=== PATIENT | male | born 1935 | race Caucasian/White ===

== ENCOUNTER 2016-09-06 18:01 | Observation (INO) | payer MEDICARE, OTHER ==
[~2016-09-06] VITALS: Ht 175.3 cm; Wt 80.5 kg
[2016-09-06 19:36] LABS: MEAN CORPUSCULAR HEMOGLOBIN 28.8 pg (27.0-33.0); MEAN CORPUSCULAR HGB CONC 32.3 g/dl (32.0-36.5); PLATELET COUNT, AUTOMATED 161 k/mm3 (150-450); RED CELL DISTRIBUTION WIDTH 14.2 % (11.5-14.5); WHITE BLOOD COUNT 14.7 K/mm3 (4.0-10.0)
[2016-09-06 19:47] LABS: ALBUMIN 3.4 GM/DL (3.2-5.2); ALBUMIN/GLOBULIN RATIO 1.13 (1.00-1.93); ALKALINE PHOSPHATASE 82 U/L (45-117); ALT/SGPT 19 U/L (12-78); ANION GAP 8 MEQ/L (8-16); AST/SGOT 8 U/L (15-37); BILIRUBIN,DIRECT 0.1 MG/DL (0.0-0.2); BILIRUBIN,TOTAL 0.3 MG/DL (0.2-1.0); BLOOD UREA NITROGEN 21 MG/DL (7-18); CALCIUM LEVEL 8.6 MG/DL (8.8-10.2); CARBON DIOXIDE LEVEL 30 MEQ/L (21-32); CHLORIDE LEVEL 102 MEQ/L (98-107); CREATININE FOR GFR 0.98 MG/DL (0.70-1.30); GLOMERULAR FILTRATION RATE > 60.0 (>35); GLUCOSE, FASTING 154 MG/DL (83-110); POTASSIUM SERUM 4.4 MEQ/L (3.5-5.1); SODIUM LEVEL 140 MEQ/L (136-145); TOTAL PROTEIN 6.4 GM/DL (6.4-8.2)
[2016-09-06 20:01] LABS: BANDS 1 % (< 11); EOSINOPHILS 1 % (0-5)
[2016-09-06 20:03] LABS: POIKILOCYTOSIS 1+
[2016-09-06] MEDS ORDERED: ACETAMINOPHEN 325 MG TAB As Ordered ONE (20:54)
[2016-09-06] MEDS: MAGNESIUM OXIDE 400 MG TAB (MAG-OX) PO SCH (21:00)
--- NOTE | 2016-09-06 21:10 | REPUSA ---
CLINICAL HISTORY: CVA>4.5HRS TECHNIQUE: Multiple axial CT images were obtained through the brain without IV contrast material. COMMENTS: Compared to prior study dated 10/10/15. There is normal configuration of sella turcica. There are no intra or extra-axial collections. There is no mass effect or midline shift. There is no evidence of hematoma formation. No hydrocephalus is p resent. The ventricles are symmetrical. No abnormal calcifications are present. There is diffuse age-appropriate cerebellar and cerebral atrophy with proportionally dilated ventricl es and cortical sulci. There are bilateral periventricular and subcortical white matter hypolucencies compatible with mild c hronic microvascular disease. Otherwise, no significant focal abnormalities are seen either in the posterior fossa or supratentoria l compartment. IMPRESSION: 1. Age-appropriate cerebellar and cerebral atrophy. 2. Mild chronic microvascular disease. 3. No evidence of acute intracranial pathology. No interval change. Thank you for your kind referral of this patient.
[2016-09-06] MEDS ORDERED: cefTRIAXone SOD 1 GM VIAL (J0696) As Ordered ONE (22:00)
[2016-09-06] MEDS ORDERED: ACETAMINOPHEN TAB 650MG DOSE (2X325MG) PO PRN (23:00)
[2016-09-06] MEDS ORDERED: SYNT125T PO (23:12)
[2016-09-06] MEDS ORDERED: VITA250011 SL (23:12)
[2016-09-06] MEDS ORDERED: METF500T PO (23:12)
[2016-09-06] MEDS ORDERED: BYST5TAB2 PO (23:12)
[2016-09-06] MEDS ORDERED: PYRI100T2 PO (23:12)
[2016-09-06] MEDS ORDERED: MEMA1TAB2 PO (23:12)
[2016-09-06] MEDS ORDERED: ESOM1CAP5 PO (23:12)
[2016-09-06] MEDS ORDERED: BUME1TA PO (23:12)
[2016-09-06] MEDS ORDERED: LUTE10TA PO (23:12)
[2016-09-06] MEDS ORDERED: ROSU20TA PO (23:12)
[2016-09-06] MEDS ORDERED: ASPI81TA7 PO (23:12)
[2016-09-06] MEDS ORDERED: AMIT10TA PO (23:12)
[2016-09-06] MEDS ORDERED: RANI150T PO (23:12)
[2016-09-06] MEDS ORDERED: CO Q10CA PO (23:12)
[2016-09-06] MEDS ORDERED: MAGN400T PO (23:12)
[2016-09-06] MEDS ORDERED: PERI4TAB PO (23:12)
[2016-09-06] MEDS ORDERED: CALC1TAB21 PO (23:12)
--- NOTE | 2016-09-06 23:56 | HPEPDOC ---
General Date of Admission 09/06/2016 Primary Care Physician: Marisabel Dc Attending Physician: SOL YOUNG Chief Complaint The patient is a 81-year-old male admitted with a reason for visit of Weakness. Source: Patient Exam Limitations: Dementia History of Present Illness Mr. Larson is an 81-year-old male who apparently has been suffering from weakness for the past 2-3 days. He is a poor historian due to underlying dementia, and his family are not in the room to provide the history. Per records in speaking with the nurses, it appears that he is usually able to get up and move around the house without difficulty, and care for himself. He does have a home health aide/caregiver who apparently is her on a daily basis. His weakness is definitely not his baseline, therefore he was brought into the ED for further evaluation. His weakness is generalized, not focal, and appears to be progressive in nature, now he seems to be essentially bedridden. When speaking to him, he is awake and alert, he does believe that it is 2000 but he is aware that the current president is David and the previous president was Deanne, and he does know that he is in [facility]. According to the patient, his only complaint besides his weakness is that he has to peel the time, and he has trouble stopping the flow, he dribbles. Otherwise, he denies any fevers, chills, night sweats, headaches, chest discomfort, palpitations, shortness of breath, nausea, vomiting, abdominal discomfort, he does admit to occasional constipation, no diarrhea, no paresthesias, no paralysis, no facial droop, no focal weakness. Remainder of the review of systems is negative. Home Medications Scheduled (Calcium 600 + D 600-200 mg-Unit) 1 Tab Tab 1 TAB PO BID (Reported) Daily and @ 1900 (Esomeprazole Magnesium) 40 Mg Cap 40 MG PO DAILY (Reported) (Lutein) 10 Mg Tab 10 MG PO DAILY (Reported) @ 1200 (Rosuvastatin Calcium) 20 Mg Tab 20 MG PO QHS (Reported) Amitriptyline HCl (Amitriptyline HCl) 10 Mg Tab 10 MG PO QHS (Reported) Aspirin (Aspirin) 81 Mg Tab 81 MG PO QPM (Reported) @ 1900 Bumetanide (Bumetanide) 1 Mg Tab 1 MG PO Q2D (Reported) Coenzyme Q10 (Co Q 10) 10 Mg Cap 10 MG PO DAILY (Reported) @ 1200 Cyanocobalamin (Vitamin B-12) 2,500 Mcg Sub 2,500 MCG SL DAILY (Reported) @ 1200 Levothyroxine Sodium (Synthroid) 125 Mcg Tab 125 MCG PO QAM (Reported) Magnesium Oxide (Magnesium Oxide) 400 Mg Tab 400 MG PO BID (Reported) Memantine Hydrochloride (Memantine HCl) 10 Mg Tab 10 MG PO BID (Reported) @ 1200 and HS Metformin Hydrochloride (Metformin HCl) 500 Mg Tab 500 MG PO BID (Reported) Daily and @ 1900 Nebivolol (Bystolic) 5 Mg Tab 5 MG PO DAILY (Reported) @ 1200 Perindopril Erbumine (Perindopril Erbumine) 4 Mg Tab 4 MG PO QHS (Reported) Pyridoxine HCl (Vitamin B-6) 100 Mg Tab 100 MG PO QPM (Reported) @ 1900 Ranitidine HCl (Ranitidine HCl) 150 Mg Tab 1 TAB PO QHS (Reported) Allergies Coded Allergies: No Known Allergies (Unverified , 09/06/16) Past Medical History Medical History Diabetes mellitus type 2 Hypercholesterolemia Hypertension Hypothyroidism CHF (unknown diastolic or systolic) Aortic insufficiency Chronic anemia with a baseline hemoglobin of 12-13. Dementia Surgical History Adenoidectomy Tonsillectomy Cholecystectomy Family History Significant Family History: Unable to assess Social History * Smoker: non-smoker Alcohol: denies Drugs: denies Recent Travel/Sick Contacts: Denies: Recent travel Psychosocial History: No pertinent psych hx Social History Apparently lives at home with a caregiver named Staci. He reports that he has 2 boys who also check in on him from time to time. Review of Symptoms Other systems As described in the HPI Physical Examination General Exam: Positive: Alert, Cooperative, No Acute Distress Eye Exam: Positive: Conjunctiva & lids normal, EOMI, PERRLA, Negative: Sclera icteric ENT Exam: Positive: Atraumatic, Mucous membr. moist/pink, Pharynx Normal Neck Exam: Positive: Supple, Negative: JVD, thyromegaly Chest Exam: Positive: Clear to auscultation, Normal air movement Heart Exam: Positive: Murmurs (grade 2/6 systolic murmur), Normal S1, Normal S2 , Rate Normal, Regular Rhythm, Negative: Rubs Telemetry: Positive: No significant arrhythmia Abdomen Exam: Positive: Normal bowel sounds, Soft, Negative: Hepatospenomegaly Extremity Exam: Positive: Normal pulses, Negative: Clubbing, Cyanosis, Edema Skin Exam: Positive: Nl turgor and temperature, Negative: Breakdown, Lesion Neuro Exam: Positive: Cranial Nerves 3-12 NL, Normal Speech, Normal Tone, Sensation Intact, Strength at 5/5 X4 ext Psych Exam: Positive: Mood NL, Negative: Oriented x 3 Vital Signs Blood pressure 112/59, pulse 62, respirations 18, temperature 100.2, pulse ox 94 % on room air, weight 82 kg, height 5 feet 9 inches, BMI 27 Laboratory Data Labs 24H Laboratory Tests 2 09/06/16 19:09: Aspartate Amino Transf (AST/SGOT) 8L, Alanine Aminotransferase (ALT/SGPT) 19, Alkaline Phosphatase 82, Total Bilirubin 0.3, Direct Bilirubin 0.1, Albumin 3.4 , Albumin/Globulin Ratio 1.13, Anion Gap 8, Atypical Lymphocytes 2, Band Neutrophils 1, White Blood Count 14.7H, Red Blood Count 4.30, Hemoglobin 12.4L, Hematocrit 38.3L, Mean Corpuscular Volume 89.0, Mean Corpuscular Hemoglobin 28.8 , Mean Corpuscular Hemoglobin Concent 32.3, Red Cell Distribution Width 14.2, Platelet Count 161, Neutrophils (%) (Auto) , Lymphocytes (%) (Auto) , Monocytes (%) (Auto) , Eosinophils (%) (Auto) , Basophils (%) (Auto) , Neutrophils # (Auto ) , Lymphocytes # (Auto) , Monocytes # (Auto) , Eosinophils # (Auto) , Basophils # (Auto) , Calcium Level 8.6L, Eosinophils (Manual) 1, Glomerular Filtration Rate > 60.0, Large Unclassified Cells # , Large Unclassified Cells % , Lymphocytes (Manual) 9L, Monocytes (Manual) 5, Neutrophils 82H, Platelet Estimate NORMAL, Poikilocytosis 1+, Total Creatine Kinase 38L, Total Protein 6.4 , Troponin I < 0.02, Urine Amorphous Sediment , Urine Appearance CLOUDYH, Urine Color YELLOW, Urine pH 5.0, Urine Specific [place] 1.020, Urine Protein NEGATIVE , Urine Glucose (UA) 1+H, Urine Ketones NEGATIVE, Urine Urobilinogen 0.2, Urine Bilirubin NEGATIVE, Urine Leukocyte Esterase 3+H, Urine Bacteria (Auto) 3+H, Urine Blood 1+H, Urine Calcium Carbonate Cryst(Auto) , Urine Calcium Oxalate Cryst (Auto) , Urine Calcium Phosphate Kathryn (Auto) , Urine Cellular Casts , Urine Cystine Crystals , Urine Granular Casts (Auto) , Urine Hyaline Casts (Auto ) 0, Urine Leucine Crystals , Urine Mucus (Auto) SMALL, Urine Nitrite POSITIVE, Urine Oval Fat Bodies (Auto) , Urine RBC (Auto) 12H, Urine Renal Epithelial Cells , Urine Sperm (Auto) , Urine Squamous Epithelial Cells 1, Urine Transitional Epithelial Cells , Urine Trichomonas (Auto) , Urine Triple Phosphate Cryst (Auto) , Urine Tyrosine Crystals , Urine Uric Acid Crystals ( Auto) , Urine WBC (Auto) TNTCH, Urine Waxy Casts (Auto) , Urine Yeast-Like Cells (Auto) CBC/BMP Laboratory Tests 09/06/16 19:09 Red Blood Count 4.30, Mean Corpuscular Volume 89.0, Mean Corpuscular Hemoglobin 28.8, Mean Corpuscular Hemoglobin Concent 32.3, Red Cell Distribution Width 14.2 , Neutrophils (%) (Auto) , Lymphocytes (%) (Auto) , Monocytes (%) (Auto) , Eosinophils (%) (Auto) , Basophils (%) (Auto) , Neutrophils # (Auto) , Lymphocytes # (Auto) , Monocytes # (Auto) , Eosinophils # (Auto) , Basophils # ( Auto) Microbiology Microbiology 09/06/16 Influenza Virus Type A Antigen - Final, Complete 09/06/16 Influenza Virus Type B Antigen - Final, Complete 09/06/16 Urine Culture, Received Pending (1) UTI (urinary tract infection) Status: Acute (2) Generalized weakness Status: Acute (3) Leukocytosis Status: Acute (4) Diabetes mellitus type 2 in nonobese Status: Chronic (5) Hypercholesterolemia Status: Chronic (6) Hypertension Status: Chronic (7) Hypothyroidism Status: Chronic (8) CHF (congestive heart failure) Status: Chronic (9) Chronic anemia Status: Chronic (10) Dementia Status: Chronic Plan / VTE VTE Prophylaxis Ordered?: Yes (Lovenox) Plan Plan UA in the ED is indicative of a UTI, urine cultures are pending. Will admit the patient to [facility]. We'll start the patient on empiric antibiotic of Rocephin. He does not meet sepsis criteria. No IV fluids will be administered at this time as he is holding up good pressures, and he has a history of CHF. CXR & symptomatology is negative for pneumonia. His weakness is generalized, as well as progressive, CT of the head was negative for any acute intracranial pathology. Neurological exam is benign. It does appear for all intents and purposes that this is caused by his UTI, however if there is persistence of symptoms even after treatment, perhaps may consider normal pressure hydrocephalus. Otherwise, we'll continue with his usual regimen of home medications for his chronic conditions. GME ATTESTATION GME ATTESTATION My preceptor for this patient encounter was physically present in the building during the encounter and was fully available. As needed, all aspects of the patient interview, examination, medical decision making process, and medical care plan development were reviewed and approved by the preceptor. Preceptor is aware and concurs with the plan as stated in the body of this note and will attest to such by his/her cosignature. ATTENDING NOTE I, Sol Young, have seen and examined the above patient and agree with the assessment and plan as documented by Dr. Virgen. The patient will be placed in observation status on the service of Dr. Veronika Mcmahon. DEVEN VIRGEN DO Sep 06, 2016 23:55 SOL YOUNG Sep 07, 2016 00:13
[2016-09-07 01:15] VITALS: BP 139/65
--- NOTE | 2016-09-07 01:15 | EDDOCDS ---
Nurse's Notes [facility] Name: Elias Larson Age: 81 yrs Sex: Male : 1935 Arrival Date: 09/06/2016 Time: 18:01 Bed 7 Private MD: Diagnosis: Urinary tract infection, site not specified;Weakness Presentation: 09/06 18:07 Presenting complaint: EMS states: weakness x 3 days progressively worsening. BS 251. kc3 The last date and time the patient was known to be well was was at an unknown time on September 03, 2016. No acute neurological deficit is noted. The patients blood glucose was checked before arriving to the hospital and was found to be normal. Suicide/Homicide risk assessment- the patient denies having any suicidal and/or homicidal ideations and does not present with any other emotional, behavioral or mental health complaints. Status: Patient is not a community service representative or dependent. Transition of care: patient was not received from another setting of care. 18:07 Acuity: BG Level 3 kc3 18:07 Method Of Arrival: Ambulance kc3 18:54 Adult Sepsis Screening: The patient does not have new or worsening altered mentation. kc3 Patient's respiratory rate is less than 22. Systolic blood pressure is greater than 100. Patient has a qSOFA score of 1- Negative Sepsis Screen. Triage Assessment: 18:51 The onset of the patients symptoms was more than three hours ago. General: Appears kc3 uncomfortable, Behavior is appropriate for age, cooperative. Pain: Denies pain. The patient is triaged at the bedside. See Assessment in Nurses Notes section of ED record. Neurological: Level of Consciousness is awake, obeys commands, Oriented to person, place, Supervisory It Specialist are weak bilaterally Weakness Speech is normal, Reports weakness. Cardiovascular: Rhythm is atrial fibrillation Other controlled. Respiratory: Airway is patent Respiratory effort is even, unlabored. Derm: Skin is pink, warm & dry. Historical: - Allergies: no known allergies; - Home Meds: 1. levothyroxine 125 mcg oral tab once daily 2. Calcium + Vitamin D 600 mg calcium- 200 unit Oral tab twice a day 3. metformin 500 mg Oral tr24 1 tab twice a day 4. esomeprazole magnesium 40 mg Oral cpDR 1 cap once daily 5. magnesium oxide 400 mg Oral tab twice a day 6. Bystolic 5 mg oral tab 1 tab once daily 7. memantine 10 mg oral tab 1 tab 2 times per day 8. aspirin 81 mg Oral tab 1 tab once daily 9. vitamin b12 daily 10. amitriptyline 10 mg Oral tab daily 11. ranitidine HCl 150 mg Oral cap 1 cap once daily 12. bumetanide 1 mg Oral tab every other day 13. rosuvastatin 20 mg oral tab 1 tab once daily 14. perindopril erbumine 4 mg oral tab 1 tab once daily 15. donepezil 10 mg oral tab 1 tab once daily - PMHx: Diabetes - NIDDM: controlled; Hypercholesterolemia; Hypertension; Hypothyroidism; CHF; "bad valves"; - PSHx: abdominal surgery; Adenoidectomy; Tonsillectomy; - Social history: No barriers to communication noted, The patient speaks fluent Romanian, Speaks appropriately for age, Smoking status: Patient states was never smoker of tobacco. - Family history: Not pertinent. - : The pt / caregiver states he / she is not on anticoagulants. Home medication list is obtained from the caregiver. - Exposure Risk Screening:: None identified. Screenin:53 Screening information is obtained from the patient. Fall risk: At risk due to weakness. kc3 The following interventions are performed due to a positive Fall Risk Screen: Fall Risk is added to Special Handling on the patient Summary Screen. A Fall Risk Bracelet was applied to the patient. Side Rails are placed in the up position. A Call [place] is given with instruction to call for help when getting out of bed. Fall Alert bracelet is placed on the patient. Assistance ADL's: requires no assistance with activities of daily living. Abuse/DV Screen: The patient / caregiver reports he/she is: not in a situation that causes fear, pain or injury. Nutritional screening: No deficits noted. Advance Directives: Currently, there is a health care proxy, Brandon Larson, mishel. home support is adequate. Assessment: 18:53 General: See triage assessment for initial assessment. . kc3 19:12 General: Verbal report given by Darcie Valladares RN. Assumed care of patient at this time.. kas2 19:39 General: Appears ill, Behavior is appropriate for age, cooperative. Pain: Denies pain. kas2 Neurological:. 19:40 Neurological: Level of Consciousness is awake, alert, Oriented to person, place, time. kas2 Cardiovascular: Capillary refill < 3 seconds Heart tones S1 S2 present Rhythm is sinus rhythm No ectopy. Respiratory: No deficits noted. Airway is patent Respiratory effort is even, unlabored, Respiratory pattern is regular, symmetrical, Breath sounds are clear. GI: Abdomen is non- distended Bowel sounds present X 4 quads. Abd is tender to palpation in right lower quadrant and left lower quadrant. GI: Derm: Skin is intact, Skin is dry, Skin is pink, warm & dry. Skin temperature is warm. 20:39 General: Patient resting in bed with family at bedside. No apparent distress noted. kas2 Appears comfortable. Denies pain or discomfort at this time. Airway patent and respiratory effort even and unlabored. Call [place] within reach. Will continue to monitor.. 21:24 General: Appears in no apparent distress, comfortable, Behavior is appropriate for age, kas2 cooperative. Pain: Denies pain. Neurological: Level of Consciousness is awake, alert, Oriented to person, place, time. Cardiovascular: Rhythm is sinus rhythm No ectopy. Respiratory: Airway is patent Respiratory effort is even, unlabored, Respiratory pattern is regular, symmetrical. Derm: Skin is intact, Skin is dry, Skin is pink, warm & dry. Skin temperature is warm. 21:41 General: Patient slow to respond with answers to questions and is confused at times kas2 with some answers. Patient did not know his address and what year it was. RN was unable to ambulate patient as he could not even sit up in bed. Dr. Armijo aware.. 22:32 General: Hospitalist in assessing patient at this time.. kas2 23:30 General: Appears in no apparent distress, to be sleeping. Behavior is appropriate for kas2 age, cooperative. Pain: Denies pain. Neurological: Level of Consciousness is. Cardiovascular: Capillary refill < 3 seconds Rhythm is sinus rhythm No ectopy. Respiratory: Airway is patent Respiratory effort is even, unlabored, Respiratory pattern is regular, symmetrical. Derm: Skin is intact, Skin is dry, Skin is pink, warm & dry. Skin temperature is warm. 09/07 00:19 General: Appears in no apparent distress, to be sleeping. Behavior is appropriate for kas2 age, cooperative. Pain: Denies pain. Cardiovascular: Rhythm is sinus rhythm No ectopy. Respiratory: Airway is patent Respiratory effort is even, unlabored, Respiratory pattern is regular, symmetrical. Derm: Skin is intact, Skin is dry, Skin is pink, warm & dry. Skin temperature is warm. 00:39 General: Patient incontinent of urine. Bed changed and patient repositioned. Denies kas2 pain or discomfort. Call [place] within reach.. Vital Signs: 09/06 18:15 BP 113 / 59 (auto/); kas2 18:15 Pulse 66 MON; Pulse Ox 96% ; kas2 18:17 BP 113 / 59; Pulse 65; Resp 18; Temp 99.9(O); Pulse Ox 96% on R/A; Weight 81.65 kg (R); nb2 Height 5 ft. 9 in. (175.26 cm) (R); Pain 0/10; 18:30 BP 128 / 68 (auto/); kas2 18:30 Pulse 64 MON; Pulse Ox 95% ; kas2 19:15 BP 124 / 61 (auto/); kas2 19:15 Pulse 62 MON; Pulse Ox 92% ; kas2 19:30 BP 153 / 70 (auto/); kas2 19:30 Pulse 64 MON; Pulse Ox 94% ; kas2 19:45 BP 109 / 66 (auto/); kas2 19:45 Pulse 62 MON; Pulse Ox 93% ; kas2 20:00 BP 144 / 70 (auto/); kas2 20:00 Pulse 64 MON; kas2 20:15 BP 142 / 67 (auto/); kas2 20:15 Pulse 64 MON; Pulse Ox 94% ; kas2 20:30 BP 116 / 60 (auto/); kas2 20:30 Pulse 62 MON; Pulse Ox 92% ; kas2 20:45 BP 116 / 65 (auto/); kas2 20:45 Pulse 62 MON; Pulse Ox 92% ; kas2 20:46 Temp 100.2(O); kas2 21:00 BP 111 / 56 (auto/); kas2 21:00 Pulse 62 MON; Pulse Ox 92% ; kas2 21:15 BP 112 / 59 (auto/); kas2 21:15 Pulse 62 MON; Pulse Ox 91% ; kas2 21:30 BP 103 / 52 (auto/); kas2 21:30 Pulse 60 MON; Pulse Ox 91% ; kas2 21:45 BP 102 / 56 (auto/); kas2 21:45 Pulse 60 MON; Pulse Ox 92% ; kas2 22:00 BP 107 / 57 (auto/); kas2 22:00 Pulse 60 MON; Pulse Ox 93% ; kas2 22:15 Resp 18; Temp 98.9(TE); kas2 22:15 BP 106 / 59 (auto/); kas2 22:15 Pulse 56 MON; Pulse Ox 94% ; kas2 22:30 BP 103 / 51 (auto/); kas2 22:30 Pulse 56 MON; Pulse Ox 95% ; kas2 22:45 BP 108 / 56 (auto/); kas2 22:45 Pulse 56 MON; Pulse Ox 94% ; kas2 23:00 BP 92 / 54 (auto/); kas2 23:00 Pulse 56 MON; Pulse Ox 94% ; kas2 23:15 BP 94 / 55 (auto/); kas2 23:15 Pulse 56 MON; Pulse Ox 94% ; kas2 23:30 BP 104 / 53 (auto/); kas2 23:30 Pulse 56 MON; Pulse Ox 94% ; kas2 23:45 BP 110 / 58 (auto/); kas2 23:45 Pulse 56 MON; Pulse Ox 95% ; kas2 09/07 00:00 BP 99 / 52 (auto/); kas2 00:00 Pulse 54 MON; Pulse Ox 94% ; kas2 00:15 BP 97 / 51 (auto/); kas2 00:15 Pulse 54 MON; Pulse Ox 94% ; kas2 00:21 Pulse 54 MON; Pulse Ox 94% ; kas2 00:22 BP 110 / 58 (auto/); kas2 00:27 BP 110 / 58; Pulse 54; Resp 18; Temp 98.7(TE); Pulse Ox 94% on R/A; Pain 0/10; kas2 09/06 18:17 Body Mass Index 26.58 (81.65 kg, 175.26 cm) nb2 Vitals: 09/06 18:17 Log In Time N/A - ambulance arrival. nb2 18:54 Glucose Measurement D-stick done by EMS BS 251. [facility] ED Course: 18:01 Patient visited by Kenya Roque, Route Supervisor. deg 18:01 Patient moved to Waiting deg 18:02 Liza Arellano,RN is Primary Nurse. deg 18:02 Patient moved to 7 deg 18:08 Triage Initiated kc3 18:17 Placed in gown. Bed in low position. Call light in reach. Side rails up X2. Cardiac nb2 monitor on. Pulse ox on. NIBP on. 18:18 Patient visited by Naina Rey. nb2 18:21 González Armijo MD is Attending Physician. br1 18:49 Patient visited by González Armijo MD. br1 18:54 The patient / caregiver is instructed regarding the plan of care and ED course. kc3 19:06 Inserted saline lock: 20 gauge in right antecubital area and blood collected. The kc3 patient tolerated the procedure well. 19:09 Patricia LarsonRN is Primary Nurse. kas2 19:11 CREATINE PHOSPHOKINASE Sent. kas2 19:11 -Influenza A&B Rapid Antigen - Nose Sent. kas2 19:11 Troponin Sent. kas2 19:11 BMP Sent. kas2 19:11 Liver Profile Sent. kas2 19:11 CBC with Diff Sent. kas2 19:12 Urine Culture Sent. kas2 19:12 Urinalysis Sent. kas2 19:12 Bladder Scan completed Results: [address] Armijo aware. kas2 19:13 Patient visited by Patricia Larson RN. kas2 19:33 [facility] Payment Agreement was scanned into [employer] and attached to record. ks16 19:41 Patient visited by Patricia Larson RN. kas2 20:13 Patient visited by Patricia Larson RN. kas2 20:39 DIFFERENTIAL NO CHARGE Sent. kas2 20:41 Patient visited by Patricia Larson RN. kas2 20:46 Patient visited by Patricia Larson RN. kas2 21:18 Patient visited by Patricia Larson RN. kas2 21:18 CT Head Without Contrast Returned. EDMS 21:25 Patient visited by Patricia Larson RN. kas2 21:38 Patient visited by González Armijo MD. br1 21:42 Patient visited by Patricia Larson RN. kas2 21:53 Sol Young is Hospitalizing Provider. br1 22:15 Patient visited by Patricia Larson RN. kas2 22:33 Patient visited by Patricia Larson RN. kas2 23:32 Patient visited by Patricia Larson RN. kas2 09/07 00:24 Patient visited by Patricia Larson RN. kas2 00:27 No procedures done that require assistance. kas2 00:39 Patient visited by Patricia Larson RN. kas2 00:51 Patient visited by Patricia Larson RN. kas2 Administered Medications: 09/06 20:39 Drug: NS 0.9% 1000 ml [sodium chloride 0.9 % intravenous solution] Route: IV; Rate: 150 kas2 mL/hr; Site: right antecubital; 20:57 Drug: Acetaminophen 650 mg [acetaminophen 325 mg tablet (2 tabs)] Route: PO; kas2 22:14 Drug: cefTRIAXone 1 grams [ceftriaxone 1 gram solution for injection] Route: IVPB; kas2 Infused Over: 30 mins; Site: right antecubital; Order Results: Lab Order: CBC with Diff; SPEC'M 09/06/16 19:09 Test: WHITE BLOOD COUNT; Value: 14.7; Range: 4.0-10.0; Abnormal: Above high normal; Units: K/mm3; Status: F Test: RED BLOOD COUNT; Value: 4.30; Range: 4.30-6.10; Units: M/mm3; Status: F Test: HEMOGLOBIN; Value: 12.4; Range: 14.0-18.0; Abnormal: Below low normal; Units: g/dl; Status: F Test: HEMATOCRIT; Value: 38.3; Range: 42.0-52.0; Abnormal: Below low normal; Units: %; Status: F Test: MEAN CORPUSCULAR VOLUME; Value: 89.0; Range: 80.0-96.0; Units: fl; Status: F Test: MEAN CORPUSCULAR HEMOGLOBIN; Value: 28.8; Range: 27.0-33.0; Units: pg; Status: F Test: MEAN CORPUSCULAR HGB CONC; Value: 32.3; Range: 32.0-36.5; Units: g/dl; Status: F Test: RED CELL DISTRIBUTION WIDTH; Value: 14.2; Range: 11.5-14.5; Units: %; Status: F Test: PLATELET COUNT, AUTOMATED; Value: 161; Range: 150-450; Units: k/mm3; Status: F Test: PLATELET ESTIMATE; Range: NORMAL; Status: I Test: NEUTROPHILS; Value: 82; Range: 35-75; Abnormal: Above high normal; Units: %; Status: F Test: BANDS; Value: 1; Range: < 11; Units: %; Status: F Test: LYMPHOCYTES; Value: 9; Range: 16-52; Abnormal: Below low normal; Units: %; Status: F Test: MONOCYTES; Value: 5; Range: 0-8; Units: %; Status: F Test: EOSINOPHILS; Value: 1; Range: 0-5; Units: %; Status: F Test: ATYPICAL LYMPH; Value: 2; Range: 0-5; Units: %; Status: F Test: POIKILOCYTOSIS; Value: 1+; Status: F Lab Order: BMP; SPEC'M 09/06/16 19:09 Test: GLUCOSE, FASTING; Value: 154; Range: 83-110; Abnormal: Above high normal; Units: MG/DL; Status: F Test: BLOOD UREA NITROGEN; Value: 21; Range: 7-18; Abnormal: Above high normal; Units: MG/DL; Status: F Test: CREATININE FOR GFR; Value: 0.98; Range: 0.70-1.30; Units: MG/DL; Status: F Test: GLOMERULAR FILTRATION RATE; Value: > 60.0; Range: >35; Status: F Test: SODIUM LEVEL; Value: 140; Range: 136-145; Units: MEQ/L; Status: F Test: POTASSIUM SERUM; Value: 4.4; Range: 3.5-5.1; Units: MEQ/L; Status: F Test: CHLORIDE LEVEL; Value: 102; Range: 98-107; Units: MEQ/L; Status: F Test: CARBON DIOXIDE LEVEL; Value: 30; Range: 21-32; Units: MEQ/L; Status: F Test: ANION GAP; Value: 8; Range: 8-16; Units: MEQ/L; Status: F Test: CALCIUM LEVEL; Value: 8.6; Range: 8.8-10.2; Abnormal: Below low normal; Units: MG/DL; Status: F Test Note: ; Units are mL/min/1.73 m2 Chronic Kidney Disease Staging per NKF: Stage I & II GFR >=60 Normal to Mildly Decreased Stage III GFR 30-59 Moderately Decreased Stage IV GFR 15-29 Severely Decreased Stage V GFR <15 Very Little GFR Left ESRD GFR <15 on UNDERGROUND REPAIRER Lab Order: Liver Profile; SPEC'M 09/06/16 19:09 Test: AST/SGOT; Value: 8; Range: 15-37; Abnormal: Below low normal; Units: U/L; Status: F Test: ALT/SGPT; Value: 19; Range: 12-78; Units: U/L; Status: F Test: ALKALINE PHOSPHATASE; Value: 82; Range: 45-117; Units: U/L; Status: F Test: BILIRUBIN,TOTAL; Value: 0.3; Range: 0.2-1.0; Units: MG/DL; Status: F Test: BILIRUBIN,DIRECT; Value: 0.1; Range: 0.0-0.2; Units: MG/DL; Status: F Test: TOTAL PROTEIN; Value: 6.4; Range: 6.4-8.2; Units: GM/DL; Status: F Test: ALBUMIN; Value: 3.4; Range: 3.2-5.2; Units: GM/DL; Status: F Test: ALBUMIN/GLOBULIN RATIO; Value: 1.13; Range: 1.00-1.93; Status: F Lab Order: Urinalysis; SPEC'M 09/06/16 19:09 Test: APPEARANCE, URINE; Value: CLOUDY; Range: CLEAR; Abnormal: Above high normal; Status: F Test: COLOR, URINE; Value: YELLOW; Range: YELLOW; Status: F Test: PH,URINE; Value: 5.0; Range: 5.0-9.0; Units: UNITS; Status: F Test: SPECIFIC GRAVITY URINE AUTO; Value: 1.020; Range: 1.002-1.035; Status: F Test: PROTEIN, URINE AUTO; Value: NEGATIVE; Range: NEGATIVE; Units: mg/dL; Status: F Test: GLUCOSE, URINE (UA) AUTO; Value: 1+; Range: NEGATIVE; Abnormal: Above high normal; Units: mg/dL; Status: F Test: KETONE, URINE AUTO; Value: NEGATIVE; Range: NEGATIVE; Units: mg/dL; Status: F Test: UROBILINOGEN, URINE AUTO; Value: 0.2; Range: 0.0-2.0; Units: mg/dL; Status: F Test: BILIRUBIN, URINE AUTO; Value: NEGATIVE; Range: NEGATIVE; Status: F Test: NITRITE, URINE AUTO; Value: POSITIVE; Range: NEGATIVE; Status: F Test: LEUKOCYTE ESTERASE, URINE AUTO; Value: 3+; Range: NEGATIVE; Abnormal: Above high normal; Status: F Test: BLOOD, URINE BLOOD; Value: 1+; Range: NEGATIVE; Abnormal: Above high normal; Status: F Test: WBC, URINE AUTO; Value: TNTC; Range: 0-3; Abnormal: Above high normal; Units: /HPF; Status: F Test: RBC, URINE AUTO; Value: 12; Range: 0-3; Abnormal: Above high normal; Units: /HPF; Status: F Test: BACTERIA, URINE AUTO; Value: 3+; Range: NEGATIVE; Abnormal: Above high normal; Status: F Test: SQUAMOUS EPITHELIAL CELL UR AU; Value: 1; Range: 0-6; Units: /HPF; Status: F Test: MUCUS, URINE; Value: SMALL; Range: NEGATIVE; Status: F Test: HYALINE CAST, URINE AUTO; Value: 0; Range: 0-1; Units: /LPF; Status: F Lab Order: Troponin; SPEC'M 09/06/16 19:09 Test: TROPONIN I; Value: < 0.02; Range: < 0.10; Units: NG/ML; Status: F Test Note: ; Troponin I Reference Interval for [employer] LOCI: 99th Percentile= 0.00-0.045 ng/ml Risk Stratification: <= 0.10 ng/ml Decreased Risk for Adverse Clinical Events. 0.10-1.50 ng/ml Increased Risk for Adverse Clinical Events. Evaluation of additional criterion and/or repeat testing in 2-6 hours is suggested to rule out myocardial damage. >= 1.50 ng/ml Indicative of Myocardial Injury. Lab Order: -Influenza A&B Rapid Antigen - Nose; SPEC'M 09/06/16 19:09 Test: INFLUENZA A RAPID SCR by ICA; Value: INFLUENZA A RESULTS NEGATIVE; Status: F Test: INFLUENZA A RAPID SCR by ICA; Value: Comments:; Status: F Test: INFLUENZA B RAPID SCR by ICA; Value: INFLUENZA B RESULTS NEGATIVE; Status: F Test Note: ; The Influenza test is a direct rapid immunoassay for the qualitative detection of Influenza viral antigen. Cell culture (Viral Culture) testing should be considered to confirm NEGATIVE results and to assist in detecting other viruses that can provide similar clinical symptoms. Please contact the lab within 24 hours ([phone] if confirmatory testing is desired. Lab Order: CREATINE PHOSPHOKINASE; SPEC'M 09/06/16 19:09 Test: CPK CREATINE PHOSPHOKINASE; Value: 38; Range: 39-308; Abnormal: Below low normal; Units: U/L; Status: F Lab Order: PLATELET ESTIMATE; SPEC'M 09/06/16 19:09 Test: PLATELET ESTIMATE; Value: NORMAL; Range: NORMAL; Status: F Radiology Order: CT Head Without Contrast Test: CT Head Without Contrast REASON FOR EXAMINATION: CVA >4.5hrs; ; CLINICAL HISTORY: CVA>4.5HRS; TECHNIQUE: Multiple axial CT images were obtained through the brain without IV contrast material.; COMMENTS: Compared to prior study dated 10/10/15.; There is normal configuration of sella turcica. There are no intra or extra-axial collections. There; is no mass effect or midline shift. There is no evidence of hematoma formation. No hydrocephalus is p; resent. The ventricles are symmetrical. No abnormal calcifications are present.; There is diffuse age-appropriate cerebellar and cerebral atrophy with proportionally dilated ventricl; es and cortical sulci.; There are bilateral periventricular and subcortical white matter hypolucencies compatible with mild c; hronic microvascular disease.; Otherwise, no significant focal abnormalities are seen either in the posterior fossa or supratentoria; l compartment.; IMPRESSION:; 1. Age-appropriate cerebellar and cerebral atrophy.; 2. Mild chronic microvascular disease.; 3. No evidence of acute intracranial pathology. No interval change.; Thank you for your kind referral of this patient.; ; ; Outcome: 21:54 Decision to Hospitalize by Provider. br1 09/07 00:47 Discharge Assessment: patient administered narcotics - no. The following High Risk [facility] Discharge criteria are identified: None. Admitted to Med/Surg accompanied by tech, via stretcher, with chart. Condition: good Condition: stable Condition: improved. CT Study completed. Property :Personal belongings accompany Pt. 01:14 Patient left the ED. [facility] Signatures: Dispatcher [employer] EDKenya Drew, Route Supervisor Unit deg González Armijo MD MD br1 Taina Wang RN RN Rosa Gonzales, Reg Reg [id number] Patricia Larson RN RN kas2 Baart, Naina nb2 MTDD
--- NOTE | 2016-09-07 01:15 | EDDOCDS ---
Physician Documentation [facility] Name: Elias Larson Age: 81 yrs Sex: Male : 1935 Arrival Date: 09/06/2016 Time: 18:01 Bed 7 Private MD: Disposition: 09/06/16 21:54 Hospitalization ordered by Sol Young for Inpatient Admission. Preliminary diagnosis are Urinary tract infection, site not specified, Weakness. - Bed requested for 4 [place]. - Status is Inpatient Admission. kas2 - Condition is Stable. - Problem is new. - Symptoms are unchanged. Historical: - Allergies: no known allergies; - Home Meds: 1. levothyroxine 125 mcg oral tab once daily 2. Calcium + Vitamin D 600 mg calcium- 200 unit Oral tab twice a day 3. metformin 500 mg Oral tr24 1 tab twice a day 4. esomeprazole magnesium 40 mg Oral cpDR 1 cap once daily 5. magnesium oxide 400 mg Oral tab twice a day 6. Bystolic 5 mg oral tab 1 tab once daily 7. memantine 10 mg oral tab 1 tab 2 times per day 8. aspirin 81 mg Oral tab 1 tab once daily 9. vitamin b12 daily 10. amitriptyline 10 mg Oral tab daily 11. ranitidine HCl 150 mg Oral cap 1 cap once daily 12. bumetanide 1 mg Oral tab every other day 13. rosuvastatin 20 mg oral tab 1 tab once daily 14. perindopril erbumine 4 mg oral tab 1 tab once daily 15. donepezil 10 mg oral tab 1 tab once daily - PMHx: Diabetes - NIDDM: controlled; Hypercholesterolemia; Hypertension; Hypothyroidism; CHF; "bad valves"; - PSHx: abdominal surgery; Adenoidectomy; Tonsillectomy; - Social history: No barriers to communication noted, The patient speaks fluent Guatemalan, Speaks appropriately for age, Smoking status: Patient states was never smoker of tobacco. - Family history: Not pertinent. - : The pt / caregiver states he / she is not on anticoagulants. Home medication list is obtained from the caregiver. - Exposure Risk Screening:: None identified. Vital Signs: 09/06 18:15 BP 113 / 59 (auto/); kas2 18:15 Pulse 66 MON; Pulse Ox 96% ; kas2 18:17 BP 113 / 59; Pulse 65; Resp 18; Temp 99.9(O); Pulse Ox 96% on R/A; Weight 81.65 kg / nb2 180.01 lbs (R); Height 5 ft. 9 in. (175.26 cm) (R); Pain 0/10; 18:30 BP 128 / 68 (auto/); kas2 18:30 Pulse 64 MON; Pulse Ox 95% ; kas2 19:15 BP 124 / 61 (auto/); kas2 19:15 Pulse 62 MON; Pulse Ox 92% ; kas2 19:30 BP 153 / 70 (auto/); kas2 19:30 Pulse 64 MON; Pulse Ox 94% ; kas2 19:45 BP 109 / 66 (auto/); kas2 19:45 Pulse 62 MON; Pulse Ox 93% ; kas2 20:00 BP 144 / 70 (auto/); kas2 20:00 Pulse 64 MON; kas2 20:15 BP 142 / 67 (auto/); kas2 20:15 Pulse 64 MON; Pulse Ox 94% ; kas2 20:30 BP 116 / 60 (auto/); kas2 20:30 Pulse 62 MON; Pulse Ox 92% ; kas2 20:45 BP 116 / 65 (auto/); kas2 20:45 Pulse 62 MON; Pulse Ox 92% ; kas2 20:46 Temp 100.2(O); kas2 21:00 BP 111 / 56 (auto/); kas2 21:00 Pulse 62 MON; Pulse Ox 92% ; kas2 21:15 BP 112 / 59 (auto/); kas2 21:15 Pulse 62 MON; Pulse Ox 91% ; kas2 21:30 BP 103 / 52 (auto/); kas2 21:30 Pulse 60 MON; Pulse Ox 91% ; kas2 21:45 BP 102 / 56 (auto/); kas2 21:45 Pulse 60 MON; Pulse Ox 92% ; kas2 22:00 BP 107 / 57 (auto/); kas2 22:00 Pulse 60 MON; Pulse Ox 93% ; kas2 22:15 Resp 18; Temp 98.9(TE); kas2 22:15 BP 106 / 59 (auto/); kas2 22:15 Pulse 56 MON; Pulse Ox 94% ; kas2 22:30 BP 103 / 51 (auto/); kas2 22:30 Pulse 56 MON; Pulse Ox 95% ; kas2 22:45 BP 108 / 56 (auto/); kas2 22:45 Pulse 56 MON; Pulse Ox 94% ; kas2 23:00 BP 92 / 54 (auto/); kas2 23:00 Pulse 56 MON; Pulse Ox 94% ; kas2 23:15 BP 94 / 55 (auto/); kas2 23:15 Pulse 56 MON; Pulse Ox 94% ; kas2 23:30 BP 104 / 53 (auto/); kas2 23:30 Pulse 56 MON; Pulse Ox 94% ; kas2 23:45 BP 110 / 58 (auto/); kas2 23:45 Pulse 56 MON; Pulse Ox 95% ; kas2 09/07 00:00 BP 99 / 52 (auto/); kas2 00:00 Pulse 54 MON; Pulse Ox 94% ; kas2 00:15 BP 97 / 51 (auto/); kas2 00:15 Pulse 54 MON; Pulse Ox 94% ; kas2 00:21 Pulse 54 MON; Pulse Ox 94% ; kas2 00:22 BP 110 / 58 (auto/); kas2 00:27 BP 110 / 58; Pulse 54; Resp 18; Temp 98.7(TE); Pulse Ox 94% on R/A; Pain 0/10; [facility]2 09/06 18:17 Body Mass Index 26.58 (81.65 kg, 175.26 cm) nb2 MDM: 09/06 18:50 IV Saline Lock ordered. br1 18:50 Bladder Scan please ordered. br1 18:52 CBC with Diff Ordered. EDMS 18:52 BMP Ordered. EDMS 18:52 Liver Profile Ordered. EDMS 18:52 Urinalysis Ordered. EDMS 18:52 Troponin Ordered. EDMS 18:52 Urine Culture Ordered. EDMS 18:52 -Influenza A&B Rapid Antigen - Nose Ordered. EDMS 18:52 Chest, 2 View (pa\\E\\lat) Ordered. EDMS 18:52 ECG WITH READING ER PHYS+CARDIAG ordered. EDMS 18:52 CT Head Without Contrast Ordered. EDMS 18:55 CREATINE PHOSPHOKINASE Ordered. EDMS 19:22 Financial registration complete. [email or web address] 19:33 [facility] Payment Agreement was scanned into [employer] and attached to record. [email or web address] 19:38 DIFFERENTIAL NO CHARGE Ordered. EDMS 19:38 PLATELET ESTIMATE Ordered. EDMS 20:15 CBC with Diff Reviewed. br1 20:15 BMP Reviewed. br1 20:15 Liver Profile Reviewed. br1 20:15 CREATINE PHOSPHOKINASE Reviewed. br1 20:15 Troponin Reviewed. br1 20:15 -Influenza A&B Rapid Antigen - Nose Reviewed. br1 20:15 PLATELET ESTIMATE Reviewed. br1 20:15 NS 0.9% 1000 ml IV at 150 mL/hr continuous ordered. br1 20:51 Acetaminophen Tablet 650 mg PO once ordered. br1 21:31 Urinalysis Reviewed. br1 21:31 CT Head Without Contrast Reviewed. br1 21:37 Ambulate Patient to Assess Patient Safety ordered. br1 21:40 cefTRIAXone 1 grams IVPB once over 30 mins; dilute in 50mL of NS or D5W ordered. br1 21:41 BED REQUEST+ADM ordered. EDMS 23:09 CONSISTENT CARBOHYDRATES ordered. EDMS 23:09 BASIC METABOLIC PROFILE Ordered. EDMS 23:09 COMPLETE BLOOD COUNT Ordered. EDMS 09/07 00:10 PHYSICAL THERAPY EVAL & TREAT ordered. EDMS 00:14 Admission / Observation Status ordered. EDMS Administered Medications: 09/06 20:39 Drug: NS 0.9% 1000 ml [sodium chloride 0.9 % intravenous solution] Route: IV; Rate: 150 kas2 mL/hr; Site: right antecubital; 20:57 Drug: Acetaminophen 650 mg [acetaminophen 325 mg tablet (2 tabs)] Route: PO; kas2 22:14 Drug: cefTRIAXone 1 grams [ceftriaxone 1 gram solution for injection] Route: IVPB; kas2 Infused Over: 30 mins; Site: right antecubital; Signatures: Dispatcher [employer] EDCO Destini Cisneros RN González Pierre MD MD br1 Taina Wang RN RN [email or web address] Rosa Turk, Reg Reg [email or web address] Patricia LarsonRN RN kas2 The chart was reviewed and I authenticate all verbal orders and agree with the evaluation and treatment provided.Corrections: (The following items were deleted from the chart) 18:55 18:52 CREATINE PHOSPHOKINASE+LAB ordered. EDCO EDMS Attachments: 19:33 [facility] Payment Agreement [email or web address] MTDD
[2016-09-07] MEDS: MEMANTINE 5MG TABLET (NAMENDA) PO SCH ×3 (01:38→21:20)
[2016-09-07] MEDS: AMITRIPTYLINE 10 MG TAB PO SCH ×2 (01:38→21:19)
[2016-09-07] MEDS: ROSUVASTATIN 10 MG TAB (CRESTOR) PO SCH ×2 (01:38→21:20)
[2016-09-07] MEDS: ASPIRIN 81 MG ENTERIC TAB PO SCH ×2 (01:38→21:19)
[2016-09-07] MEDS: FAMOTIDINE 20 MG TAB PO SCH ×2 (01:39→21:19)
[2016-09-07] MEDS: LEVOTHYROXINE 0.125 MG TAB (125 MCG) PO SCH (05:33)
[2016-09-07 05:37] LABS: MEAN CORPUSCULAR HEMOGLOBIN 29.1 pg (27.0-33.0); MEAN CORPUSCULAR HGB CONC 32.8 g/dl (32.0-36.5); MEAN CORPUSCULAR VOLUME 88.7 fl (80.0-96.0); RED CELL DISTRIBUTION WIDTH 14.2 % (11.5-14.5); WHITE BLOOD COUNT 13.1 K/mm3 (4.0-10.0)
[2016-09-07 05:43] LABS: ANION GAP 8 MEQ/L (8-16); BLOOD UREA NITROGEN 17 MG/DL (7-18); CALCIUM LEVEL 8.2 MG/DL (8.8-10.2); CARBON DIOXIDE LEVEL 27 MEQ/L (21-32); CHLORIDE LEVEL 104 MEQ/L (98-107); CREATININE FOR GFR 0.81 MG/DL (0.70-1.30); GLOMERULAR FILTRATION RATE > 60.0 (>35); GLUCOSE, FASTING 183 MG/DL (83-110); POTASSIUM SERUM 4.2 MEQ/L (3.5-5.1); SODIUM LEVEL 139 MEQ/L (136-145)
[2016-09-07 06:00] VITALS: BP 142/66
[2016-09-07] MEDS: MAGNESIUM OXIDE 400 MG TAB (MAG-OX) PO SCH ×2 (08:43→21:19)
[2016-09-07] MEDS: metFORMIN (GLUCOPHAGE) 500 MG TAB PO SCH ×2 (08:43→17:39)
[2016-09-07] MEDS: OMEPRAZOLE 20 MG CAP PO SCH (08:43)
[2016-09-07] MEDS: BUMETANIDE 1 MG TAB PO SCH (08:43)
[2016-09-07] MEDS: NEBIVOLOL 5 MG TAB (BYSTOLIC) PO SCH (08:45)
[2016-09-07] MEDS: ENOXAPARIN 40 MG/0.4 ML SYRINGE (J1650) SC SCH (08:45)
--- NOTE | 2016-09-07 10:05 | IPNPDOC ---
Assessment/Plan Date Seen The patient was seen on 09/07/16. Problems Problems: (1) Acute metabolic encephalopathy Status: Acute Problem Text: present on admission due to urinary tract infection improving. (2) UTI (urinary tract infection) Status: Acute Problem Text: will continue with ceftriaxone , cultures pending will check bladder scan post void. (3) Generalized weakness Status: Acute Problem Text: due to infection (4) Diabetes mellitus type 2 in nonobese Status: Chronic (5) Hypercholesterolemia Status: Chronic (6) Hypertension Status: Chronic (7) Hypothyroidism Status: Chronic (8) CHF (congestive heart failure) Status: Chronic Problem Text: no echo in the system unknown type (9) Chronic anemia Status: Chronic (10) Dementia Status: Chronic Plan / VTE VTE Prophylaxis Ordered?: Yes (Lovenox) Subjective Review of Systems CC/HPI The patient is a 81-year-old male admitted with a reason for visit of Urinary Tract Infection. Events since last encounter no new issues overnight , no fever or chills, nocough or phlegm , no vomiting or diarrhea. no chest pain or abdominal pain , complains of dysuria and frquency of urination. Objective Physical Examination General Exam: Positive: Alert, Cooperative, No Acute Distress Eye Exam: Positive: Conjunctiva & lids normal, EOMI, PERRLA, Negative: Sclera icteric ENT Exam: Positive: Atraumatic, Mucous membr. moist/pink, Pharynx Normal Neck Exam: Positive: Supple, Negative: JVD, thyromegaly Chest Exam: Positive: Clear to auscultation, Normal air movement Heart Exam: Positive: Murmurs (grade 2/6 systolic murmur), Normal S1, Normal S2 , Rate Normal, Regular Rhythm, Negative: Rubs Telemetry: Positive: No significant arrhythmia Abdomen Exam: Positive: Normal bowel sounds, Soft, Negative: Hepatospenomegaly Extremity Exam: Positive: Normal pulses, Negative: Clubbing, Cyanosis, Edema Skin Exam: Positive: Nl turgor and temperature, Negative: Breakdown, Lesion Neuro Exam: Positive: Cranial Nerves 3-12 NL, Normal Speech, Normal Tone, Sensation Intact, Strength at 5/5 X4 ext Psych Exam: Positive: Mood NL, Negative: Oriented x 3 Vital Signs/I&O Vital Signs Date Time Temp Pulse Resp B/P Pulse Ox O2 Delivery O2 Flow Rate FiO2 09/07/16 06:00 97.1 57 18 142/66 94 09/07/16 01:17 Room Air I&O- Last 24 Hours up to 6 AM 09/07/16 05:59 Intake Total 120 ml Output Total 200 ml Balance -80 ml Laboratory Data Labs 24H Laboratory Tests 2 09/06/16 19:09: Aspartate Amino Transf (AST/SGOT) 8L, Alanine Aminotransferase (ALT/SGPT) 19, Alkaline Phosphatase 82, Total Bilirubin 0.3, Direct Bilirubin 0.1, Albumin 3.4 , Albumin/Globulin Ratio 1.13, Anion Gap 8, Atypical Lymphocytes 2, Band Neutrophils 1, White Blood Count 14.7H, Red Blood Count 4.30, Hemoglobin 12.4L, Hematocrit 38.3L, Mean Corpuscular Volume 89.0, Mean Corpuscular Hemoglobin 28.8 , Mean Corpuscular Hemoglobin Concent 32.3, Red Cell Distribution Width 14.2, Platelet Count 161, Neutrophils (%) (Auto) , Lymphocytes (%) (Auto) , Monocytes (%) (Auto) , Eosinophils (%) (Auto) , Basophils (%) (Auto) , Neutrophils # (Auto ) , Lymphocytes # (Auto) , Monocytes # (Auto) , Eosinophils # (Auto) , Basophils # (Auto) , Calcium Level 8.6L, Eosinophils (Manual) 1, Glomerular Filtration Rate > 60.0, Large Unclassified Cells # , Large Unclassified Cells % , Lymphocytes (Manual) 9L, Monocytes (Manual) 5, Neutrophils 82H, Platelet Estimate NORMAL, Poikilocytosis 1+, Total Creatine Kinase 38L, Total Protein 6.4 , Troponin I < 0.02, Urine Amorphous Sediment , Urine Appearance CLOUDYH, Urine Color YELLOW, Urine pH 5.0, Urine Specific [place] 1.020, Urine Protein NEGATIVE , Urine Glucose (UA) 1+H, Urine Ketones NEGATIVE, Urine Urobilinogen 0.2, Urine Bilirubin NEGATIVE, Urine Leukocyte Esterase 3+H, Urine Bacteria (Auto) 3+H, Urine Blood 1+H, Urine Calcium Carbonate Cryst(Auto) , Urine Calcium Oxalate Cryst (Auto) , Urine Calcium Phosphate Kathryn (Auto) , Urine Cellular Casts , Urine Cystine Crystals , Urine Granular Casts (Auto) , Urine Hyaline Casts (Auto ) 0, Urine Leucine Crystals , Urine Mucus (Auto) SMALL, Urine Nitrite POSITIVE, Urine Oval Fat Bodies (Auto) , Urine RBC (Auto) 12H, Urine Renal Epithelial Cells , Urine Sperm (Auto) , Urine Squamous Epithelial Cells 1, Urine Transitional Epithelial Cells , Urine Trichomonas (Auto) , Urine Triple Phosphate Cryst (Auto) , Urine Tyrosine Crystals , Urine Uric Acid Crystals ( Auto) , Urine WBC (Auto) TNTCH, Urine Waxy Casts (Auto) , Urine Yeast-Like Cells (Auto) 09/07/16 05:07: Anion Gap 8, Calcium Level 8.2L, Glomerular Filtration Rate > 60.0, Blood Urea Nitrogen 17, Creatinine 0.81, Sodium Level 139, Potassium Level 4.2, Chloride Level 104, Carbon Dioxide Level 27 CBC/BMP Laboratory Tests 09/06/16 19:09 Red Blood Count 4.30, Mean Corpuscular Volume 89.0, Mean Corpuscular Hemoglobin 28.8, Mean Corpuscular Hemoglobin Concent 32.3, Red Cell Distribution Width 14.2 , Neutrophils (%) (Auto) , Lymphocytes (%) (Auto) , Monocytes (%) (Auto) , Eosinophils (%) (Auto) , Basophils (%) (Auto) , Neutrophils # (Auto) , Lymphocytes # (Auto) , Monocytes # (Auto) , Eosinophils # (Auto) , Basophils # ( Auto) 09/07/16 05:07 Red Blood Count 3.90 L, Mean Corpuscular Volume 88.7, Mean Corpuscular Hemoglobin 29.1, Mean Corpuscular Hemoglobin Concent 32.8, Red Cell Distribution Width 14.2, Calcium Level 8.2 L Microbiology Microbiology 09/06/16 Influenza Virus Type A Antigen - Final, Complete 09/06/16 Influenza Virus Type B Antigen - Final, Complete 09/06/16 Urine Culture, Received Pending THIEN BUCK MD Sep 07, 2016 07:31
[2016-09-07 14:00] VITALS: BP 136/60
--- NOTE | 2016-09-07 15:44 | ECGEPIP ---
Stationary ECG Study [facility] - ED Test Date: 2016-09-06 Pat Name: JEET MACKEY Department: Room: [place] [address] Gender: M Pole Classifier: spenser : 1935 Requested By: LAURIE Linares Order Number: [id number] Reading MD: Ghazal Chung Measurements Intervals [place] Rate: 61 P: 78 [place]: 183 QRS: -15 QRSD: 90 T: 38 QT: 400 QTc: 406 Interpretive Statements SINUS RHYTHM MINIMAL VOLTAGE CRITERIA FOR LVH, CONSIDER NORMAL VARIANT NSTTW ABNORMALITY SIMILAR 10/21/14 Electronically Signed On 09-07-2016 15:44:13 EST by Ghazal Chung
[2016-09-07] MEDS: cefTRIAXone SOD 1 GM in D5W MINI-BAG PLUS 50 ML IV SCH (21:19)
[2016-09-07] MEDS: PERINDOPRIL ERBUMINE 4 MG PO SCH (21:19)
[2016-09-07] MEDS: PYRIDOXINE 50 MG TAB PO SCH (21:20)
[2016-09-07 22:00] VITALS: BP 133/64
[2016-09-08] MEDS: LEVOTHYROXINE 0.125 MG TAB (125 MCG) PO SCH (05:39)
[2016-09-08 06:00] VITALS: BP 134/63
[2016-09-08 06:12] LABS: MEAN CORPUSCULAR HEMOGLOBIN 29.8 pg (27.0-33.0); MEAN CORPUSCULAR HGB CONC 32.8 g/dl (32.0-36.5); MEAN CORPUSCULAR VOLUME 90.7 fl (80.0-96.0); RED CELL DISTRIBUTION WIDTH 13.3 % (11.5-14.5); WHITE BLOOD COUNT 10.1 K/mm3 (4.0-10.0)
[2016-09-08 06:30] LABS: ANION GAP 7 MEQ/L (8-16); BLOOD UREA NITROGEN 14 MG/DL (7-18); CALCIUM LEVEL 8.1 MG/DL (8.8-10.2); CARBON DIOXIDE LEVEL 30 MEQ/L (21-32); CHLORIDE LEVEL 103 MEQ/L (98-107); CREATININE FOR GFR 0.84 MG/DL (0.70-1.30); GLOMERULAR FILTRATION RATE > 60.0 (>35); GLUCOSE, FASTING 198 MG/DL (83-110); SODIUM LEVEL 140 MEQ/L (136-145)
[2016-09-08] MEDS: OMEPRAZOLE 20 MG CAP PO SCH (08:49)
[2016-09-08] MEDS: MAGNESIUM OXIDE 400 MG TAB (MAG-OX) PO SCH ×2 (08:49→21:17)
[2016-09-08] MEDS: ENOXAPARIN 40 MG/0.4 ML SYRINGE (J1650) SC SCH (08:50)
[2016-09-08] MEDS: metFORMIN (GLUCOPHAGE) 500 MG TAB PO SCH ×2 (08:50→17:51)
[2016-09-08] MEDS: NEBIVOLOL 5 MG TAB (BYSTOLIC) PO SCH (08:50)
--- NOTE | 2016-09-08 11:06 | REP ---
Chest AP and lateral views: Comparison is 08/22/2016. The lung valles are clear. The cardiac size is normal The maggie, mediastinum, and bony thorax are unremarkable. Impression: Negative AP and lateral chest. There is no interval change Signed by Jomar Whitten MD 09/07/2016 08:19 A
--- NOTE | 2016-09-08 11:13 | IPNPDOC ---
Assessment/Plan Date Seen The patient was seen on 09/08/16. Problems Problems: (1) Acute metabolic encephalopathy Status: Resolved Problem Text: present on admission due to urinary tract infection now resolved. (2) UTI (urinary tract infection) Status: Acute Problem Text: will continue with ceftriaxone , cultures pending will check bladder scan post void. (3) Generalized weakness Status: Acute Problem Text: due to infection (4) Diabetes mellitus type 2 in nonobese Status: Chronic (5) Hypercholesterolemia Status: Chronic (6) Hypertension Status: Chronic (7) Hypothyroidism Status: Chronic (8) CHF (congestive heart failure) Status: Chronic Problem Text: no echo in the system unknown type (9) Chronic anemia Status: Chronic (10) Dementia Status: Chronic Response to Treatment: Stable Problem Text: mild not hampering ADLS. Plan / VTE VTE Prophylaxis Ordered?: Yes (Lovenox) Subjective Review of Systems CC/HPI The patient is a 81-year-old male admitted with a reason for visit of Urinary Tract Infection. Events since last encounter pateint alert, oriented this am , appears stronger, feeling better, good appetite , no complaints. Objective Physical Examination General Exam: Positive: Alert, Cooperative, No Acute Distress Eye Exam: Positive: Conjunctiva & lids normal, EOMI, PERRLA, Negative: Sclera icteric ENT Exam: Positive: Atraumatic, Mucous membr. moist/pink, Pharynx Normal Neck Exam: Positive: Supple, Negative: JVD, thyromegaly Chest Exam: Positive: Clear to auscultation, Normal air movement Heart Exam: Positive: Murmurs (grade 2/6 systolic murmur), Normal S1, Normal S2 , Rate Normal, Regular Rhythm, Negative: Rubs Telemetry: Positive: No significant arrhythmia Abdomen Exam: Positive: Normal bowel sounds, Soft, Negative: Hepatospenomegaly Extremity Exam: Positive: Normal pulses, Negative: Clubbing, Cyanosis, Edema Skin Exam: Positive: Nl turgor and temperature, Negative: Breakdown, Lesion Neuro Exam: Positive: Cranial Nerves 3-12 NL, Normal Speech, Normal Tone, Sensation Intact, Strength at 5/5 X4 ext Psych Exam: Positive: Mood NL, Negative: Oriented x 3 Vital Signs/I&O Vital Signs Date Time Temp Pulse Resp B/P Pulse Ox O2 Delivery O2 Flow Rate FiO2 09/08/16 08:50 55 134/63 09/08/16 06:00 97.2 17 95 Room Air I&O- Last 24 Hours up to 6 AM 09/08/16 06:00 Intake Total 770 ml Output Total 1520 ml Balance -750 ml Laboratory Data Labs 24H Laboratory Tests 2 09/07/16 16:49: Bedside Glucose (Misc Panel) 135H 09/08/16 05:30: Anion Gap 7L, Blood Urea Nitrogen 14, Creatinine 0.84, Sodium Level 140, Potassium Level 4.0, Chloride Level 103, Carbon Dioxide Level 30, Calcium Level 8.1L, Glomerular Filtration Rate > 60.0 CBC/BMP Laboratory Tests 09/08/16 05:30 Calcium Level 8.1 L, Red Blood Count 3.64 L, Mean Corpuscular Volume 90.7, Mean Corpuscular Hemoglobin 29.8, Mean Corpuscular Hemoglobin Concent 32.8, Red Cell Distribution Width 13.3 FSBS Laboratory Tests Test 09/07/16 16:49 Range/Units Bedside Glucose (Misc Panel) 135 83-110 MG/DL Microbiology Microbiology 09/06/16 Influenza Virus Type A Antigen - Final, Complete 09/06/16 Influenza Virus Type B Antigen - Final, Complete 09/06/16 Urine Culture - Final, Complete Escherichia Coli THIEN BUCK MD Sep 08, 2016 11:13
[2016-09-08] MEDS: MEMANTINE 5MG TABLET (NAMENDA) PO SCH ×2 (12:03→21:17)
[2016-09-08 14:00] VITALS: BP 124/66
[2016-09-08] MEDS ORDERED: TUSSICAPS ER 10/8MG CAPSULE PO PRN (14:30)
[2016-09-08] MEDS: ROSUVASTATIN 10 MG TAB (CRESTOR) PO SCH (21:17)
[2016-09-08] MEDS: ASPIRIN 81 MG ENTERIC TAB PO SCH (21:17)
[2016-09-08] MEDS: cefTRIAXone SOD 1 GM in D5W MINI-BAG PLUS 50 ML IV SCH (21:17)
[2016-09-08] MEDS: PYRIDOXINE 50 MG TAB PO SCH (21:17)
[2016-09-08] MEDS: AMITRIPTYLINE 10 MG TAB PO SCH (21:17)
[2016-09-08] MEDS: PERINDOPRIL ERBUMINE 4 MG PO SCH (21:18)
[2016-09-08] MEDS: FAMOTIDINE 20 MG TAB PO SCH (21:18)
[2016-09-08 22:00] VITALS: BP 131/63
--- NOTE | 2016-09-09 02:15 | EDDOCDS ---
Nurse's Notes [facility] Name: Elias Larson Age: 81 yrs Sex: Male : 1935 Arrival Date: 09/06/2016 Time: 18:01 Bed 7 Private MD: Diagnosis: Urinary tract infection, site not specified;Weakness Presentation: 09/06 18:07 Presenting complaint: EMS states: weakness x 3 days progressively worsening. BS 251. kc3 The last date and time the patient was known to be well was was at an unknown time on September 03, 2016. No acute neurological deficit is noted. The patients blood glucose was checked before arriving to the hospital and was found to be normal. Suicide/Homicide risk assessment- the patient denies having any suicidal and/or homicidal ideations and does not present with any other emotional, behavioral or mental health complaints. Status: Patient is not a front services agent or dependent. Transition of care: patient was not received from another setting of care. 18:07 Acuity: BG Level 3 kc3 18:07 Method Of Arrival: Ambulance kc3 18:54 Adult Sepsis Screening: The patient does not have new or worsening altered mentation. kc3 Patient's respiratory rate is less than 22. Systolic blood pressure is greater than 100. Patient has a qSOFA score of 1- Negative Sepsis Screen. Triage Assessment: 18:51 The onset of the patients symptoms was more than three hours ago. General: Appears kc3 uncomfortable, Behavior is appropriate for age, cooperative. Pain: Denies pain. The patient is triaged at the bedside. See Assessment in Nurses Notes section of ED record. Neurological: Level of Consciousness is awake, obeys commands, Oriented to person, place, Metals Analyst are weak bilaterally Weakness Speech is normal, Reports weakness. Cardiovascular: Rhythm is atrial fibrillation Other controlled. Respiratory: Airway is patent Respiratory effort is even, unlabored. Derm: Skin is pink, warm & dry. Historical: - Allergies: no known allergies; - Home Meds: 1. levothyroxine 125 mcg oral tab once daily 2. Calcium + Vitamin D 600 mg calcium- 200 unit Oral tab twice a day 3. metformin 500 mg Oral tr24 1 tab twice a day 4. esomeprazole magnesium 40 mg Oral cpDR 1 cap once daily 5. magnesium oxide 400 mg Oral tab twice a day 6. Bystolic 5 mg oral tab 1 tab once daily 7. memantine 10 mg oral tab 1 tab 2 times per day 8. aspirin 81 mg Oral tab 1 tab once daily 9. vitamin b12 daily 10. amitriptyline 10 mg Oral tab daily 11. ranitidine HCl 150 mg Oral cap 1 cap once daily 12. bumetanide 1 mg Oral tab every other day 13. rosuvastatin 20 mg oral tab 1 tab once daily 14. perindopril erbumine 4 mg oral tab 1 tab once daily 15. donepezil 10 mg oral tab 1 tab once daily - PMHx: Diabetes - NIDDM: controlled; Hypercholesterolemia; Hypertension; Hypothyroidism; CHF; "bad valves"; - PSHx: abdominal surgery; Adenoidectomy; Tonsillectomy; - Social history: No barriers to communication noted, The patient speaks fluent Slovak, Speaks appropriately for age, Smoking status: Patient states was never smoker of tobacco. - Family history: Not pertinent. - : The pt / caregiver states he / she is not on anticoagulants. Home medication list is obtained from the caregiver. - Exposure Risk Screening:: None identified. Screenin:53 Screening information is obtained from the patient. Fall risk: At risk due to weakness. kc3 The following interventions are performed due to a positive Fall Risk Screen: Fall Risk is added to Special Handling on the patient Summary Screen. A Fall Risk Bracelet was applied to the patient. Side Rails are placed in the up position. A Call [place] is given with instruction to call for help when getting out of bed. Fall Alert bracelet is placed on the patient. Assistance ADL's: requires no assistance with activities of daily living. Abuse/DV Screen: The patient / caregiver reports he/she is: not in a situation that causes fear, pain or injury. Nutritional screening: No deficits noted. Advance Directives: Currently, there is a health care proxy, Brandon Larson, mishel. home support is adequate. Assessment: 18:53 General: See triage assessment for initial assessment. . kc3 19:12 General: Verbal report given by Darcie Valladares RN. Assumed care of patient at this time.. kas2 19:39 General: Appears ill, Behavior is appropriate for age, cooperative. Pain: Denies pain. kas2 Neurological:. 19:40 Neurological: Level of Consciousness is awake, alert, Oriented to person, place, time. kas2 Cardiovascular: Capillary refill < 3 seconds Heart tones S1 S2 present Rhythm is sinus rhythm No ectopy. Respiratory: No deficits noted. Airway is patent Respiratory effort is even, unlabored, Respiratory pattern is regular, symmetrical, Breath sounds are clear. GI: Abdomen is non- distended Bowel sounds present X 4 quads. Abd is tender to palpation in right lower quadrant and left lower quadrant. GI: Derm: Skin is intact, Skin is dry, Skin is pink, warm & dry. Skin temperature is warm. 20:39 General: Patient resting in bed with family at bedside. No apparent distress noted. kas2 Appears comfortable. Denies pain or discomfort at this time. Airway patent and respiratory effort even and unlabored. Call [place] within reach. Will continue to monitor.. 21:24 General: Appears in no apparent distress, comfortable, Behavior is appropriate for age, kas2 cooperative. Pain: Denies pain. Neurological: Level of Consciousness is awake, alert, Oriented to person, place, time. Cardiovascular: Rhythm is sinus rhythm No ectopy. Respiratory: Airway is patent Respiratory effort is even, unlabored, Respiratory pattern is regular, symmetrical. Derm: Skin is intact, Skin is dry, Skin is pink, warm & dry. Skin temperature is warm. 21:41 General: Patient slow to respond with answers to questions and is confused at times kas2 with some answers. Patient did not know his address and what year it was. RN was unable to ambulate patient as he could not even sit up in bed. Dr. Armijo aware.. 22:32 General: Hospitalist in assessing patient at this time.. kas2 23:30 General: Appears in no apparent distress, to be sleeping. Behavior is appropriate for kas2 age, cooperative. Pain: Denies pain. Neurological: Level of Consciousness is. Cardiovascular: Capillary refill < 3 seconds Rhythm is sinus rhythm No ectopy. Respiratory: Airway is patent Respiratory effort is even, unlabored, Respiratory pattern is regular, symmetrical. Derm: Skin is intact, Skin is dry, Skin is pink, warm & dry. Skin temperature is warm. 09/07 00:19 General: Appears in no apparent distress, to be sleeping. Behavior is appropriate for kas2 age, cooperative. Pain: Denies pain. Cardiovascular: Rhythm is sinus rhythm No ectopy. Respiratory: Airway is patent Respiratory effort is even, unlabored, Respiratory pattern is regular, symmetrical. Derm: Skin is intact, Skin is dry, Skin is pink, warm & dry. Skin temperature is warm. 00:39 General: Patient incontinent of urine. Bed changed and patient repositioned. Denies kas2 pain or discomfort. Call [place] within reach.. Vital Signs: 09/06 18:15 BP 113 / 59 (auto/); kas2 18:15 Pulse 66 MON; Pulse Ox 96% ; kas2 18:17 BP 113 / 59; Pulse 65; Resp 18; Temp 99.9(O); Pulse Ox 96% on R/A; Weight 81.65 kg (R); nb2 Height 5 ft. 9 in. (175.26 cm) (R); Pain 0/10; 18:30 BP 128 / 68 (auto/); kas2 18:30 Pulse 64 MON; Pulse Ox 95% ; kas2 19:15 BP 124 / 61 (auto/); kas2 19:15 Pulse 62 MON; Pulse Ox 92% ; kas2 19:30 BP 153 / 70 (auto/); kas2 19:30 Pulse 64 MON; Pulse Ox 94% ; kas2 19:45 BP 109 / 66 (auto/); kas2 19:45 Pulse 62 MON; Pulse Ox 93% ; kas2 20:00 BP 144 / 70 (auto/); kas2 20:00 Pulse 64 MON; kas2 20:15 BP 142 / 67 (auto/); kas2 20:15 Pulse 64 MON; Pulse Ox 94% ; kas2 20:30 BP 116 / 60 (auto/); kas2 20:30 Pulse 62 MON; Pulse Ox 92% ; kas2 20:45 BP 116 / 65 (auto/); kas2 20:45 Pulse 62 MON; Pulse Ox 92% ; kas2 20:46 Temp 100.2(O); kas2 21:00 BP 111 / 56 (auto/); kas2 21:00 Pulse 62 MON; Pulse Ox 92% ; kas2 21:15 BP 112 / 59 (auto/); kas2 21:15 Pulse 62 MON; Pulse Ox 91% ; kas2 21:30 BP 103 / 52 (auto/); kas2 21:30 Pulse 60 MON; Pulse Ox 91% ; kas2 21:45 BP 102 / 56 (auto/); kas2 21:45 Pulse 60 MON; Pulse Ox 92% ; kas2 22:00 BP 107 / 57 (auto/); kas2 22:00 Pulse 60 MON; Pulse Ox 93% ; kas2 22:15 Resp 18; Temp 98.9(TE); kas2 22:15 BP 106 / 59 (auto/); kas2 22:15 Pulse 56 MON; Pulse Ox 94% ; kas2 22:30 BP 103 / 51 (auto/); kas2 22:30 Pulse 56 MON; Pulse Ox 95% ; kas2 22:45 BP 108 / 56 (auto/); kas2 22:45 Pulse 56 MON; Pulse Ox 94% ; kas2 23:00 BP 92 / 54 (auto/); kas2 23:00 Pulse 56 MON; Pulse Ox 94% ; kas2 23:15 BP 94 / 55 (auto/); kas2 23:15 Pulse 56 MON; Pulse Ox 94% ; kas2 23:30 BP 104 / 53 (auto/); kas2 23:30 Pulse 56 MON; Pulse Ox 94% ; kas2 23:45 BP 110 / 58 (auto/); kas2 23:45 Pulse 56 MON; Pulse Ox 95% ; kas2 09/07 00:00 BP 99 / 52 (auto/); kas2 00:00 Pulse 54 MON; Pulse Ox 94% ; kas2 00:15 BP 97 / 51 (auto/); kas2 00:15 Pulse 54 MON; Pulse Ox 94% ; kas2 00:21 Pulse 54 MON; Pulse Ox 94% ; kas2 00:22 BP 110 / 58 (auto/); kas2 00:27 BP 110 / 58; Pulse 54; Resp 18; Temp 98.7(TE); Pulse Ox 94% on R/A; Pain 0/10; kas2 09/06 18:17 Body Mass Index 26.58 (81.65 kg, 175.26 cm) nb2 Vitals: 09/06 18:17 Log In Time N/A - ambulance arrival. nb2 18:54 Glucose Measurement D-stick done by EMS BS 251. [facility] ED Course: 18:01 Patient visited by Kenya Roque, Litigation Paralegal. deg 18:01 Patient moved to Waiting deg 18:02 Liza Arellano,RN is Primary Nurse. deg 18:02 Patient moved to 7 deg 18:08 Triage Initiated kc3 18:17 Placed in gown. Bed in low position. Call light in reach. Side rails up X2. Cardiac nb2 monitor on. Pulse ox on. NIBP on. 18:18 Patient visited by Naina Rey. nb2 18:21 González Armijo MD is Attending Physician. br1 18:49 Patient visited by González Armijo MD. br1 18:54 The patient / caregiver is instructed regarding the plan of care and ED course. kc3 19:06 Inserted saline lock: 20 gauge in right antecubital area and blood collected. The kc3 patient tolerated the procedure well. 19:09 Patricia LarsonRN is Primary Nurse. kas2 19:11 CREATINE PHOSPHOKINASE Sent. kas2 19:11 -Influenza A&B Rapid Antigen - Nose Sent. kas2 19:11 Troponin Sent. kas2 19:11 BMP Sent. kas2 19:11 Liver Profile Sent. kas2 19:11 CBC with Diff Sent. kas2 19:12 Urine Culture Sent. kas2 19:12 Urinalysis Sent. kas2 19:12 Bladder Scan completed Results: [address] Armijo aware. kas2 19:13 Patient visited by Patricia Larson RN. kas2 19:33 [facility] Payment Agreement was scanned into [employer] and attached to record. ks16 19:41 Patient visited by Patricia Larson RN. kas2 20:13 Patient visited by Patricia Larson RN. kas2 20:39 DIFFERENTIAL NO CHARGE Sent. kas2 20:41 Patient visited by Patricia Larson RN. kas2 20:46 Patient visited by Patricia Larson RN. kas2 21:18 Patient visited by Patricia Larson RN. kas2 21:18 CT Head Without Contrast Returned. EDMS 21:25 Patient visited by Patricia Larson RN. kas2 21:38 Patient visited by González Armijo MD. br1 21:42 Patient visited by Patricia Larson RN. kas2 21:53 Sol Young is Hospitalizing Provider. br1 22:15 Patient visited by Patricia Larson RN. kas2 22:33 Patient visited by Patricia Larson RN. kas2 23:32 Patient visited by Patricia Larson RN. kas2 09/07 00:24 Patient visited by Patricia Larson RN. kas2 00:27 No procedures done that require assistance. kas2 00:39 Patient visited by Patricia Larson RN. kas2 00:51 Patient visited by Patricia Larson RN. kas2 19:32 ECG/EKG was scanned into [employer] and attached to record. kf3 19:32 Radiology Report was scanned into [employer] and attached to record. kf3 22:03 T-Sheet-- Draft Copy was scanned into [employer] and attached to record. klr Administered Medications: 09/06 20:39 Drug: NS 0.9% 1000 ml [sodium chloride 0.9 % intravenous solution] Route: IV; Rate: 150 kas2 mL/hr; Site: right antecubital; 20:57 Drug: Acetaminophen 650 mg [acetaminophen 325 mg tablet (2 tabs)] Route: PO; kas2 22:14 Drug: cefTRIAXone 1 grams [ceftriaxone 1 gram solution for injection] Route: IVPB; kas2 Infused Over: 30 mins; Site: right antecubital; Order Results: Lab Order: CBC with Diff; SPEC'M 09/06/16 19:09 Test: WHITE BLOOD COUNT; Value: 14.7; Range: 4.0-10.0; Abnormal: Above high normal; Units: K/mm3; Status: F Test: RED BLOOD COUNT; Value: 4.30; Range: 4.30-6.10; Units: M/mm3; Status: F Test: HEMOGLOBIN; Value: 12.4; Range: 14.0-18.0; Abnormal: Below low normal; Units: g/dl; Status: F Test: HEMATOCRIT; Value: 38.3; Range: 42.0-52.0; Abnormal: Below low normal; Units: %; Status: F Test: MEAN CORPUSCULAR VOLUME; Value: 89.0; Range: 80.0-96.0; Units: fl; Status: F Test: MEAN CORPUSCULAR HEMOGLOBIN; Value: 28.8; Range: 27.0-33.0; Units: pg; Status: F Test: MEAN CORPUSCULAR HGB CONC; Value: 32.3; Range: 32.0-36.5; Units: g/dl; Status: F Test: RED CELL DISTRIBUTION WIDTH; Value: 14.2; Range: 11.5-14.5; Units: %; Status: F Test: PLATELET COUNT, AUTOMATED; Value: 161; Range: 150-450; Units: k/mm3; Status: F Test: PLATELET ESTIMATE; Range: NORMAL; Status: I Test: NEUTROPHILS; Value: 82; Range: 35-75; Abnormal: Above high normal; Units: %; Status: F Test: BANDS; Value: 1; Range: < 11; Units: %; Status: F Test: LYMPHOCYTES; Value: 9; Range: 16-52; Abnormal: Below low normal; Units: %; Status: F Test: MONOCYTES; Value: 5; Range: 0-8; Units: %; Status: F Test: EOSINOPHILS; Value: 1; Range: 0-5; Units: %; Status: F Test: ATYPICAL LYMPH; Value: 2; Range: 0-5; Units: %; Status: F Test: POIKILOCYTOSIS; Value: 1+; Status: F Lab Order: [facility]; SPEC'M 09/06/16 19:09 Test: GLUCOSE, FASTING; Value: 154; Range: 83-110; Abnormal: Above high normal; Units: MG/DL; Status: F Test: BLOOD UREA NITROGEN; Value: 21; Range: 7-18; Abnormal: Above high normal; Units: MG/DL; Status: F Test: CREATININE FOR GFR; Value: 0.98; Range: 0.70-1.30; Units: MG/DL; Status: F Test: GLOMERULAR FILTRATION RATE; Value: > 60.0; Range: >35; Status: F Test: SODIUM LEVEL; Value: 140; Range: 136-145; Units: MEQ/L; Status: F Test: POTASSIUM SERUM; Value: 4.4; Range: 3.5-5.1; Units: MEQ/L; Status: F Test: CHLORIDE LEVEL; Value: 102; Range: 98-107; Units: MEQ/L; Status: F Test: CARBON DIOXIDE LEVEL; Value: 30; Range: 21-32; Units: MEQ/L; Status: F Test: ANION GAP; Value: 8; Range: 8-16; Units: MEQ/L; Status: F Test: CALCIUM LEVEL; Value: 8.6; Range: 8.8-10.2; Abnormal: Below low normal; Units: MG/DL; Status: F Test Note: ; Units are mL/min/1.73 m2 Chronic Kidney Disease Staging per NKF: Stage I & II GFR >=60 Normal to Mildly Decreased Stage III GFR 30-59 Moderately Decreased Stage IV GFR 15-29 Severely Decreased Stage V GFR <15 Very Little GFR Left ESRD GFR <15 on NAPHTHAL[employer] OPERATOR HELPER Lab Order: Liver Profile; SPEC'M 09/06/16 19:09 Test: AST/SGOT; Value: 8; Range: 15-37; Abnormal: Below low normal; Units: U/L; Status: F Test: ALT/SGPT; Value: 19; Range: 12-78; Units: U/L; Status: F Test: ALKALINE PHOSPHATASE; Value: 82; Range: 45-117; Units: U/L; Status: F Test: BILIRUBIN,TOTAL; Value: 0.3; Range: 0.2-1.0; Units: MG/DL; Status: F Test: BILIRUBIN,DIRECT; Value: 0.1; Range: 0.0-0.2; Units: MG/DL; Status: F Test: TOTAL PROTEIN; Value: 6.4; Range: 6.4-8.2; Units: GM/DL; Status: F Test: ALBUMIN; Value: 3.4; Range: 3.2-5.2; Units: GM/DL; Status: F Test: ALBUMIN/GLOBULIN RATIO; Value: 1.13; Range: 1.00-1.93; Status: F Lab Order: Urinalysis; SPEC'M 09/06/16 19:09 Test: APPEARANCE, URINE; Value: CLOUDY; Range: CLEAR; Abnormal: Above high normal; Status: F Test: COLOR, URINE; Value: YELLOW; Range: YELLOW; Status: F Test: PH,URINE; Value: 5.0; Range: 5.0-9.0; Units: UNITS; Status: F Test: SPECIFIC GRAVITY URINE AUTO; Value: 1.020; Range: 1.002-1.035; Status: F Test: PROTEIN, URINE AUTO; Value: NEGATIVE; Range: NEGATIVE; Units: mg/dL; Status: F Test: GLUCOSE, URINE (UA) AUTO; Value: 1+; Range: NEGATIVE; Abnormal: Above high normal; Units: mg/dL; Status: F Test: KETONE, URINE AUTO; Value: NEGATIVE; Range: NEGATIVE; Units: mg/dL; Status: F Test: UROBILINOGEN, URINE AUTO; Value: 0.2; Range: 0.0-2.0; Units: mg/dL; Status: F Test: BILIRUBIN, URINE AUTO; Value: NEGATIVE; Range: NEGATIVE; Status: F Test: NITRITE, URINE AUTO; Value: POSITIVE; Range: NEGATIVE; Status: F Test: LEUKOCYTE ESTERASE, URINE AUTO; Value: 3+; Range: NEGATIVE; Abnormal: Above high normal; Status: F Test: BLOOD, URINE BLOOD; Value: 1+; Range: NEGATIVE; Abnormal: Above high normal; Status: F Test: WBC, URINE AUTO; Value: TNTC; Range: 0-3; Abnormal: Above high normal; Units: /HPF; Status: F Test: RBC, URINE AUTO; Value: 12; Range: 0-3; Abnormal: Above high normal; Units: /HPF; Status: F Test: BACTERIA, URINE AUTO; Value: 3+; Range: NEGATIVE; Abnormal: Above high normal; Status: F Test: SQUAMOUS EPITHELIAL CELL UR AU; Value: 1; Range: 0-6; Units: /HPF; Status: F Test: MUCUS, URINE; Value: SMALL; Range: NEGATIVE; Status: F Test: HYALINE CAST, URINE AUTO; Value: 0; Range: 0-1; Units: /LPF; Status: F Lab Order: Troponin; SPEC'M 09/06/16 19:09 Test: TROPONIN I; Value: < 0.02; Range: < 0.10; Units: NG/ML; Status: F Test Note: ; Troponin I Reference Interval for [employer] [place] LOCI: 99th Percentile= 0.00-0.045 ng/ml Risk Stratification: <= 0.10 ng/ml Decreased Risk for Adverse Clinical Events. 0.10-1.50 ng/ml Increased Risk for Adverse Clinical Events. Evaluation of additional criterion and/or repeat testing in 2-6 hours is suggested to rule out myocardial damage. >= 1.50 ng/ml Indicative of Myocardial Injury. Lab Order: -Influenza A&B Rapid Antigen - Nose; SPEC'M 09/06/16 19:09 Test: INFLUENZA A RAPID SCR by ICA; Value: INFLUENZA A RESULTS NEGATIVE; Status: F Test: INFLUENZA A RAPID SCR by ICA; Value: Comments:; Status: F Test: INFLUENZA B RAPID SCR by ICA; Value: INFLUENZA B RESULTS NEGATIVE; Status: F Test Note: ; The Influenza test is a direct rapid immunoassay for the qualitative detection of Influenza viral antigen. Cell culture (Viral Culture) testing should be considered to confirm NEGATIVE results and to assist in detecting other viruses that can provide similar clinical symptoms. Please contact the lab within 24 hours ([phone]) if confirmatory testing is desired. Lab Order: CREATINE PHOSPHOKINASE; SPEC'M 09/06/16 19:09 Test: CPK CREATINE PHOSPHOKINASE; Value: 38; Range: 39-308; Abnormal: Below low normal; Units: U/L; Status: F Lab Order: PLATELET ESTIMATE; SPEC'M 09/06/16 19:09 Test: PLATELET ESTIMATE; Value: NORMAL; Range: NORMAL; Status: F Radiology Order: CT Head Without Contrast Test: CT Head Without Contrast REASON FOR EXAMINATION: CVA >4.5hrs; ; CLINICAL HISTORY: CVA>4.5HRS; TECHNIQUE: Multiple axial CT images were obtained through the brain without IV contrast material.; COMMENTS: Compared to prior study dated 10/10/15.; There is normal configuration of sella turcica. There are no intra or extra-axial collections. There; is no mass effect or midline shift. There is no evidence of hematoma formation. No hydrocephalus is p; resent. The ventricles are symmetrical. No abnormal calcifications are present.; There is diffuse age-appropriate cerebellar and cerebral atrophy with proportionally dilated ventricl; es and cortical sulci.; There are bilateral periventricular and subcortical white matter hypolucencies compatible with mild c; hronic microvascular disease.; Otherwise, no significant focal abnormalities are seen either in the posterior fossa or supratentoria; l compartment.; IMPRESSION:; 1. Age-appropriate cerebellar and cerebral atrophy.; 2. Mild chronic microvascular disease.; 3. No evidence of acute intracranial pathology. No interval change.; Thank you for your kind referral of this patient.; ; ; Outcome: 21:54 Decision to Hospitalize by Provider. br1 09/07 00:47 Discharge Assessment: patient administered narcotics - no. The following High Risk kas2 Discharge criteria are identified: None. Admitted to Med/Surg accompanied by tech, via stretcher, with chart. Condition: good Condition: stable Condition: improved. CT Study completed. Property :Personal belongings accompany Pt. 01:14 [facility] the ED. [facility] Signatures: Dispatcher [employer] Kenya Rodrigues, Litigation Paralegal Unit deg Nawaf Mosqueda, Reg Reg kf3 González Armijo MD MD br1 Taina Wang,RASHAAD RN kc3 Rosa Turk, Reg Reg ks16 Patricia Larsno RN RN kas2 Maria Antonia Green Nicole nb2 Chart Complete MTDD
--- NOTE | 2016-09-09 02:15 | EDDOCDS ---
Physician Documentation [facility] Name: Elias Larson Age: 81 yrs Sex: Male : 1935 Arrival Date: 09/06/2016 Time: 18:01 Bed 7 Private MD: Disposition: 09/06/16 21:54 Hospitalization ordered by Sol Young for Inpatient Admission. Preliminary diagnosis are Urinary tract infection, site not specified, Weakness. - Bed requested for 4 [place]. - Status is Inpatient Admission. kas2 - Condition is Stable. - Problem is new. - Symptoms are unchanged. Historical: - Allergies: no known allergies; - Home Meds: 1. levothyroxine 125 mcg oral tab once daily 2. Calcium + Vitamin D 600 mg calcium- 200 unit Oral tab twice a day 3. metformin 500 mg Oral tr24 1 tab twice a day 4. esomeprazole magnesium 40 mg Oral cpDR 1 cap once daily 5. magnesium oxide 400 mg Oral tab twice a day 6. Bystolic 5 mg oral tab 1 tab once daily 7. memantine 10 mg oral tab 1 tab 2 times per day 8. aspirin 81 mg Oral tab 1 tab once daily 9. vitamin b12 daily 10. amitriptyline 10 mg Oral tab daily 11. ranitidine HCl 150 mg Oral cap 1 cap once daily 12. bumetanide 1 mg Oral tab every other day 13. rosuvastatin 20 mg oral tab 1 tab once daily 14. perindopril erbumine 4 mg oral tab 1 tab once daily 15. donepezil 10 mg oral tab 1 tab once daily - PMHx: Diabetes - NIDDM: controlled; Hypercholesterolemia; Hypertension; Hypothyroidism; CHF; "bad valves"; - PSHx: abdominal surgery; Adenoidectomy; Tonsillectomy; - Social history: No barriers to communication noted, The patient speaks fluent [place]an, Speaks appropriately for age, Smoking status: Patient states was never smoker of tobacco. - Family history: Not pertinent. - : The pt / caregiver states he / she is not on anticoagulants. Home medication list is obtained from the caregiver. - Exposure Risk Screening:: None identified. Vital Signs: 09/06 18:15 BP 113 / 59 (auto/); kas2 18:15 Pulse 66 MON; Pulse Ox 96% ; kas2 18:17 BP 113 / 59; Pulse 65; Resp 18; Temp 99.9(O); Pulse Ox 96% on R/A; Weight 81.65 kg / nb2 180.01 lbs (R); Height 5 ft. 9 in. (175.26 cm) (R); Pain 0/10; 18:30 BP 128 / 68 (auto/); kas2 18:30 Pulse 64 MON; Pulse Ox 95% ; kas2 19:15 BP 124 / 61 (auto/); kas2 19:15 Pulse 62 MON; Pulse Ox 92% ; kas2 19:30 BP 153 / 70 (auto/); kas2 19:30 Pulse 64 MON; Pulse Ox 94% ; kas2 19:45 BP 109 / 66 (auto/); kas2 19:45 Pulse 62 MON; Pulse Ox 93% ; kas2 20:00 BP 144 / 70 (auto/); kas2 20:00 Pulse 64 MON; kas2 20:15 BP 142 / 67 (auto/); kas2 20:15 Pulse 64 MON; Pulse Ox 94% ; kas2 20:30 BP 116 / 60 (auto/); kas2 20:30 Pulse 62 MON; Pulse Ox 92% ; kas2 20:45 BP 116 / 65 (auto/); kas2 20:45 Pulse 62 MON; Pulse Ox 92% ; kas2 20:46 Temp 100.2(O); kas2 21:00 BP 111 / 56 (auto/); kas2 21:00 Pulse 62 MON; Pulse Ox 92% ; kas2 21:15 BP 112 / 59 (auto/); kas2 21:15 Pulse 62 MON; Pulse Ox 91% ; kas2 21:30 BP 103 / 52 (auto/); kas2 21:30 Pulse 60 MON; Pulse Ox 91% ; kas2 21:45 BP 102 / 56 (auto/); kas2 21:45 Pulse 60 MON; Pulse Ox 92% ; kas2 22:00 BP 107 / 57 (auto/); kas2 22:00 Pulse 60 MON; Pulse Ox 93% ; kas2 22:15 Resp 18; Temp 98.9(TE); kas2 22:15 BP 106 / 59 (auto/); kas2 22:15 Pulse 56 MON; Pulse Ox 94% ; kas2 22:30 BP 103 / 51 (auto/); kas2 22:30 Pulse 56 MON; Pulse Ox 95% ; kas2 22:45 BP 108 / 56 (auto/); kas2 22:45 Pulse 56 MON; Pulse Ox 94% ; kas2 23:00 BP 92 / 54 (auto/); kas2 23:00 Pulse 56 MON; Pulse Ox 94% ; kas2 23:15 BP 94 / 55 (auto/); kas2 23:15 Pulse 56 MON; Pulse Ox 94% ; kas2 23:30 BP 104 / 53 (auto/); kas2 23:30 Pulse 56 MON; Pulse Ox 94% ; kas2 23:45 BP 110 / 58 (auto/); kas2 23:45 Pulse 56 MON; Pulse Ox 95% ; kas2 09/07 00:00 BP 99 / 52 (auto/); kas2 00:00 Pulse 54 MON; Pulse Ox 94% ; kas2 00:15 BP 97 / 51 (auto/); kas2 00:15 Pulse 54 MON; Pulse Ox 94% ; kas2 00:21 Pulse 54 MON; Pulse Ox 94% ; kas2 00:22 BP 110 / 58 (auto/); kas2 00:27 BP 110 / 58; Pulse 54; Resp 18; Temp 98.7(TE); Pulse Ox 94% on R/A; Pain 0/10; [facility] 09/06 18:17 Body Mass Index 26.58 (81.65 kg, 175.26 cm) nb2 MDM: 09/06 18:50 IV Saline Lock ordered. br1 18:50 Bladder Scan please ordered. br1 18:52 CBC with Diff Ordered. EDMS 18:52 BMP Ordered. EDMS 18:52 Liver Profile Ordered. EDMS 18:52 Urinalysis Ordered. EDMS 18:52 Troponin Ordered. EDMS 18:52 Urine Culture Ordered. EDMS 18:52 -Influenza A&B Rapid Antigen - Nose Ordered. EDMS 18:52 Chest, 2 View (pa\\E\\lat) Ordered. EDMS 18:52 ECG WITH READING ER PHYS+CARDIAG ordered. EDMS 18:52 CT Head Without Contrast Ordered. EDMS 18:55 CREATINE PHOSPHOKINASE Ordered. EDMS 19:22 Financial registration complete. [email or web address] 19:33 [facility] Payment Agreement was scanned into [employer] and attached to record. ks16 19:38 DIFFERENTIAL NO CHARGE Ordered. EDMS 19:38 PLATELET ESTIMATE Ordered. EDMS 20:15 CBC with Diff Reviewed. br1 20:15 BMP Reviewed. br1 20:15 Liver Profile Reviewed. br1 20:15 CREATINE PHOSPHOKINASE Reviewed. br1 20:15 Troponin Reviewed. br1 20:15 -Influenza A&B Rapid Antigen - Nose Reviewed. br1 20:15 PLATELET ESTIMATE Reviewed. br1 20:15 NS 0.9% 1000 ml IV at 150 mL/hr continuous ordered. br1 20:51 Acetaminophen Tablet 650 mg PO once ordered. br1 21:31 Urinalysis Reviewed. br1 21:31 CT Head Without Contrast Reviewed. br1 21:37 Ambulate Patient to Assess Patient Safety ordered. br1 21:40 cefTRIAXone 1 grams IVPB once over 30 mins; dilute in 50mL of NS or D5W ordered. br1 21:41 BED REQUEST+ADM ordered. EDMS 23:09 CONSISTENT CARBOHYDRATES ordered. EDMS 23:09 BASIC METABOLIC PROFILE Ordered. EDMS 23:09 COMPLETE BLOOD COUNT Ordered. EDMS 09/07 00:10 PHYSICAL THERAPY EVAL & TREAT ordered. EDMS 00:14 Admission / Observation Status ordered. EDMS 19:32 ECG/EKG was scanned into [employer] and attached to record. kf3 19:32 Radiology Report was scanned into [employer] and attached to record. kf3 22:03 T-Sheet-- Draft Copy was scanned into [employer] and attached to record. klr Administered Medications: 09/06 20:39 Drug: NS 0.9% 1000 ml [sodium chloride 0.9 % intravenous solution] Route: IV; Rate: 150 kas2 mL/hr; Site: right antecubital; 20:57 Drug: Acetaminophen 650 mg [acetaminophen 325 mg tablet (2 tabs)] Route: PO; kas2 22:14 Drug: cefTRIAXone 1 grams [ceftriaxone 1 gram solution for injection] Route: IVPB; kas2 Infused Over: 30 mins; Site: right antecubital; Signatures: Dispatcher [employer] EDLA Destini Cisneros RN RN daq Fiddler, Kris, Reg Reg kf3 González Armijo MD MD br1 Taina Wang RN RN kc3 Rosa Turk, Reg Reg ks16 Patricia Larson RN RN kas2 Maria Antonia Green [email or web address] The chart was reviewed and I authenticate all verbal orders and agree with the evaluation and treatment provided.Corrections: (The following items were deleted from the chart) 18:55 18:52 CREATINE PHOSPHOKINASE+LAB ordered. EDMS EDMS Attachments: 19:33 [facility] Payment Agreement [email or web address] 09/07 19:32 ECG/EKG kf3 22:03 T-Sheet-- Draft Copy klr Chart Complete MTDD
[2016-09-09] MEDS: LEVOTHYROXINE 0.125 MG TAB (125 MCG) PO SCH (05:38)
[2016-09-09 06:00] VITALS: BP 127/66
[2016-09-09 06:18] LABS: ANION GAP 7 MEQ/L (8-16); BLOOD UREA NITROGEN 13 MG/DL (7-18); CALCIUM LEVEL 8.4 MG/DL (8.8-10.2); CARBON DIOXIDE LEVEL 29 MEQ/L (21-32); CHLORIDE LEVEL 105 MEQ/L (98-107); CREATININE FOR GFR 0.83 MG/DL (0.70-1.30); GLOMERULAR FILTRATION RATE > 60.0 (>35); GLUCOSE, FASTING 197 MG/DL (83-110); MEAN CORPUSCULAR VOLUME 90.9 fl (80.0-96.0); POTASSIUM SERUM 4.1 MEQ/L (3.5-5.1); RED CELL DISTRIBUTION WIDTH 14.2 % (11.5-14.5); SODIUM LEVEL 141 MEQ/L (136-145)
[2016-09-09 08:12] VITALS: BP 127/66
[2016-09-09] MEDS: NEBIVOLOL 5 MG TAB (BYSTOLIC) PO SCH (08:12)
[2016-09-09] MEDS: MAGNESIUM OXIDE 400 MG TAB (MAG-OX) PO SCH (08:12)
[2016-09-09] MEDS: OMEPRAZOLE 20 MG CAP PO SCH (08:12)
[2016-09-09] MEDS: ENOXAPARIN 40 MG/0.4 ML SYRINGE (J1650) SC SCH (08:12)
[2016-09-09] MEDS: metFORMIN (GLUCOPHAGE) 500 MG TAB PO SCH (08:12)
[2016-09-09] MEDS: BUMETANIDE 1 MG TAB PO SCH (08:12)
[2016-09-09] MEDS ORDERED: KEFL500C7 PO ×2 (11:37→12:46)
[2016-09-09] MEDS: MEMANTINE 5MG TABLET (NAMENDA) PO SCH (12:00)
[2016-09-09 14:00] VITALS: BP 117/63
--- NOTE | 2016-09-23 16:29 | DSES ---
DATE OF ADMISSION: 09/06/2016 DATE OF DISCHARGE: 09/09/2016 REASON FOR ADMISSION: Weakness. FINAL DIAGNOSES: 1. Urinary tract infection Escherichia (E) coli. 2. Acute metabolic encephalopathy secondary to urinary tract infection, resolved. 3. Generalized weakness. 4. Type 2 diabetes. 5. Hyperlipidemia. 6. Hypertension. 7. Hypothyroidism. 8. Congestive heart failure per history. 9. Chronic anemia. 10. History of dementia. HISTORY OF PRESENT ILLNESS: Patient is an 81-year-old male patient of Dr. Marisabel Dc, presented to the emergency room complaining of weakness for the past 2-3 days, he is a poor historian due to underlying dementia. Family was not in the room during that time. Most of the history was obtained from the record. His weakness was not his baseline, it was generalized, not focal, and progressive over the past 2-3 days. He denied any fevers, chills, night sweats, headaches, chest discomfort. The patient was admitted under hospitalist service. HOSPITAL COURSE: The patient had abnormal urinalysis and was started on empiric antibiotics of Rocephin. He was admitted to medical/surgical. CT scan of the head was negative for any acute pathology. Neurologic exam was benign. Cultures were positive for E. coli. He had a leukocytosis of 14.7 which resolved upon discharge. The rest of his blood work was unremarkable. The patient was afebrile during the hospitalization. He had good, stable blood pressures ranging 139-117 systolic. Once cultures came back he was switched to oral antibiotics and was discharged. DISCHARGE INSTRUCTIONS: He is to followup with Dr. Dc in 2-5 days. Diet diabetic. Activities as tolerated. DISCHARGE MEDICATIONS: Include: - Keflex 500 mg by mouth every 12 hours for 10 more days - amitriptyline 10 mg at bedtime - aspirin 81 mg by mouth at bedtime - bumetanide 1 mg every 2 days - calcium with vitamin D one tablet daily - coenzyme Q10 10 mg daily - vitamin B12 2500 sublingually daily - esomeprazole 40 mg daily - Synthroid 125 mcg by mouth in the morning - Mag-Ox 400 mg by mouth twice a day - lutein 10 mg by mouth daily - Namenda 10 mg by mouth twice a day - metformin 500 mg by mouth twice a day - Bystolic 5 mg daily - vitamin B6 100 mg at bedtime - ranitidine one tablet at bedtime - rosuvastatin 20 mg at bedtime DISCHARGE CONDITION: Stable.
== END 2016-09-09 14:17 | disposition home or self-care (01) ==
LOC: M ED 18:01 → M ED INP 18:02 → UNDOADMOB 09-07 00:12 → M ED INP 09-07 00:12 → M MSPAV 09-07 01:16 → M ED INP 09-07 01:16 → UNDODISOB 09-09 14:17
PROVIDERS: ADMIT Hospitalist; ATTEND Internal Medicine Nephrology
DX: G93.41 Metabolic encephalopathy (principal); N39.0 Urinary tract infection, site not specified; D72.829 Elevated white blood cell count, unspecified; E11.9 Type 2 diabetes mellitus without complications; E78.00 Pure hypercholesterolemia, unspecified; I50.9 Heart failure, unspecified; I10 Essential (primary) hypertension; E03.9 Hypothyroidism, unspecified; F03.90 Unspecified dementia, unspecified severity, without behavioral disturbance, psychotic disturbance, mood disturbance, and anxiety; D64.9 Anemia, unspecified; Z79.82 Long term (current) use of aspirin; Z79.899 Other long term (current) drug therapy
CPT/HCPCS: 36415; 70450; 71020; 80048; 80076; 81001; 82550; 84484; 85025; 85027; 87088; 87186; 87804; 93005; 96372; 96374; 96376; 97110; 97166; 99285; G0378; G8981; G8982; G8983; J0696; J1650

== ENCOUNTER → 2016-12-03 | Outpatient (CLI) | payer MEDICARE, OTHER ==
[~2016-12-03] MED LIST: AMIT10TA PO; ASPI81TA7 PO; BUME1TA PO; BYST5TAB2 PO; CALC1TAB21 PO; CO Q10CA PO; ESOM1CAP5 PO; KEFL500C7 PO; LUTE10TA PO; MAGN400T PO; MEMA1TAB2 PO; METF500T PO; PERI4TAB PO; PYRI100T2 PO; RANI150T PO; ROSU20TA PO; SYNT125T PO; VITA250011 SL
--- NOTE | 2016-12-03 16:16 | REP ---
CHEST, TWO VIEWS: REASON: Fevers and chills. COMPARISON: Multiple, the latest 09/06/2016 AP and lateral views. FINDINGS: The superior mediastinal structures are midline. The cardiac silhouette is unremarkable in size, shape, and position. The diaphragmatic surfaces of the lungs are regular, and the costophrenic angles are clear. The pulmonary valles are clear. The imaged osseous structures are intact. No significant change from the prior exam other than technique. IMPRESSION: There is no acute cardiopulmonary disease. Signed by Neymar Torres DO 12/03/2016 04:52 P
[2016-12-03 18:41] LABS: MEAN CORPUSCULAR HGB CONC 32.1 g/dl (32.0-36.5); MEAN CORPUSCULAR VOLUME 90.5 fl (80.0-96.0); RED CELL DISTRIBUTION WIDTH 13.8 % (11.5-14.5); WHITE BLOOD COUNT 7.2 K/mm3 (4.0-10.0)
[2016-12-03 18:52] LABS: ALBUMIN 3.6 GM/DL (3.2-5.2); ALKALINE PHOSPHATASE 72 U/L (45-117); ALT/SGPT 21 U/L (12-78); ANION GAP 9 MEQ/L (8-16); AST/SGOT 11 U/L (15-37); BILIRUBIN,TOTAL 0.4 MG/DL (0.2-1.0); BLOOD UREA NITROGEN 26 MG/DL (7-18); CALCIUM LEVEL 9.1 MG/DL (8.8-10.2); CARBON DIOXIDE LEVEL 28 MEQ/L (21-32); CHLORIDE LEVEL 103 MEQ/L (98-107); CREATININE FOR GFR 0.98 MG/DL (0.70-1.30); GLOMERULAR FILTRATION RATE > 60.0 (>35); GLUCOSE, FASTING 190 MG/DL (83-110); POTASSIUM SERUM 4.4 MEQ/L (3.5-5.1); SODIUM LEVEL 140 MEQ/L (136-145); TOTAL PROTEIN 6.6 GM/DL (6.4-8.2)
== END ==
LOC: M LAB 15:27
PROVIDERS: ATTEND Family Medicine
DX: R50.9 Fever, unspecified (principal); R53.83 Other fatigue

== ENCOUNTER → 2016-12-28 | Outpatient (REF) | payer MEDICARE, OTHER | LOC: M LAB REF 21:02 | PROVIDERS: ATTEND Physician Assistant Medical | DX: N39.0 Urinary tract infection, site not specified (principal) ==

== ENCOUNTER 2017-01-07 08:45 | Emergency (ER) | payer MEDICARE, OTHER ==
[~2017-01-07] VITALS: Ht 175.3 cm; Wt 81.6 kg
--- NOTE | 2017-01-07 09:52 | REP ---
Chest one-view HISTORY: Cough Comparison: 12/03/2016 The lungs are clear. The heart is normal in size. The pulmonary vasculature is normal in appearance. Impression: No acute disease. Signed by Aníbal Christopher MD 01/07/2017 09:44 A
[2017-01-07 09:56] LABS: BASO % 0.4 % (0.0-1.0); EOS # 0.2 K/mm3 (0.0-0.50); EOS % 2.3 % (0.0-3.0); LARGE UNSTAINED CELL # 0.1 K/mm3 (0.0-0.4); LARGE UNSTAINED CELL % 1.3 % (0.0-4.0); LYMPH # 1.5 K/mm3 (1.5-4.5); LYMPH % 22.4 % (24.0-44.0); MEAN CORPUSCULAR HEMOGLOBIN 29.9 pg (27.0-33.0); MEAN CORPUSCULAR HGB CONC 33.2 g/dl (32.0-36.5); MONO # 0.3 K/mm3 (0.0-0.8); MONO % 4.7 % (0.0-5.0); NEUTROPHILS # 4.6 K/mm3 (1.8-7.7); NEUTROPHILS % 68.9 % (36.0-66.0); PLATELET COUNT, AUTOMATED 223 k/mm3 (150-450); RED CELL DISTRIBUTION WIDTH 13.5 % (11.5-14.5); WHITE BLOOD COUNT 6.6 K/mm3 (4.0-10.0)
[2017-01-07 10:32] LABS: ANION GAP 10 MEQ/L (8-16); BLOOD UREA NITROGEN 18 MG/DL (7-18); CALCIUM LEVEL 8.6 MG/DL (8.8-10.2); CARBON DIOXIDE LEVEL 25 MEQ/L (21-32); CHLORIDE LEVEL 106 MEQ/L (98-107); CREATININE FOR GFR 0.93 MG/DL (0.70-1.30); GLOMERULAR FILTRATION RATE > 60.0 (>35); GLUCOSE, FASTING 179 MG/DL (83-110); POTASSIUM SERUM 4.1 MEQ/L (3.5-5.1); SODIUM LEVEL 141 MEQ/L (136-145)
[2017-01-07 15:59] VITALS: O2SAT 95
[2017-01-07 16:42] VITALS: BP 160/72
--- NOTE | 2017-01-08 08:41 | ECGEPIP ---
Stationary ECG Study [facility] - ED Test Date: 2017-01-07 Pat Name: JEET MACKEY Department: Room: - Gender: M [employer]: tk : 1935 Requested By: Ricky Quezada Order Number: [id number] Reading MD: Ghazal Chung Measurements Intervals [place] Rate: 52 P: 58 ID: 183 QRS: -20 QRSD: 104 T: 39 QT: 444 QTc: 417 Interpretive Statements SINUS BRADYCARDIA MODERATE VOLTAGE CRITERIA FOR LVH, CONSIDER NORMAL VARIANT DECREASED RATE 09/06/16 Electronically Signed On 01-08-2017 8:40:57 EDT by Ghazal Chung
--- NOTE | 2017-01-08 08:55 | ECGEPIP ---
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
== END 2017-01-07 16:44 | disposition home or self-care (01) ==
LOC: M ED 09:28
DX: R06.00 Dyspnea, unspecified (principal); I25.10 Atherosclerotic heart disease of native coronary artery without angina pectoris; I10 Essential (primary) hypertension; Z87.440 Personal history of urinary (tract) infections; R94.31 Abnormal electrocardiogram [ECG] [EKG]; Z79.82 Long term (current) use of aspirin; Z79.84 Long term (current) use of oral hypoglycemic drugs; Z79.899 Other long term (current) drug therapy

== ENCOUNTER → 2017-12-03 | Outpatient (REF) | payer MEDICARE, OTHER ==
[2017-12-03 17:40] LABS: BASO # 0.1 10^3/uL (0.0-0.2); BASO % 0.8 % (0.0-1.0); EOS # 0.3 10^3/uL (0.0-0.50); EOS % 5.5 % (0.0-3.0); HEMATOCRIT 38.4 % (42.0-52.0); HEMOGLOBIN 12.4 g/dl (13.5-17.5); IMMATURE GRANULOCYTE % 0.2 % (0-3.0); LYMPH # 1.8 10^3/uL (1.5-4.5); LYMPH % 28.8 % (24.0-44.0); MEAN CORPUSCULAR HEMOGLOBIN 29.3 pg (27.0-33.0); MEAN CORPUSCULAR HGB CONC 32.3 g/dl (32.0-36.5); MEAN CORPUSCULAR VOLUME 90.8 fl (80.0-96.0); MONO # 0.4 10^3/uL (0.0-0.8); NEUTROPHILS # 3.6 10^3/uL (1.8-7.7); NEUTROPHILS % 57.7 % (36.0-66.0); PLATELET COUNT, AUTOMATED 221 10^3/uL (150-450); RED BLOOD COUNT 4.23 10^6/uL (4.30-6.10); RED CELL DISTRIBUTION WIDTH 13.5 % (11.5-14.5); WHITE BLOOD COUNT 6.2 10^3/uL (4.0-10.0)
[2017-12-03 17:57] LABS: APPEARANCE, URINE HAZY (CLEAR); BACTERIA, URINE AUTO NEGATIVE (NEGATIVE); BILIRUBIN, URINE AUTO NEGATIVE (NEGATIVE); BLOOD, URINE BLOOD NEGATIVE (NEGATIVE); COLOR, URINE YELLOW (YELLOW); GLUCOSE, URINE (UA) AUTO 3+ mg/dL (NEGATIVE); KETONE, URINE AUTO TRACE mg/dL (NEGATIVE); LEUKOCYTE ESTERASE, URINE AUTO TRACE (NEGATIVE); MUCUS, URINE SMALL (NEGATIVE); NITRITE, URINE AUTO NEGATIVE (NEGATIVE); PROTEIN, URINE AUTO NEGATIVE (NEGATIVE); RBC, URINE AUTO 2 /HPF (0-3); SPECIFIC GRAVITY URINE AUTO 1.012 (1.002-1.035); SQUAMOUS EPITHELIAL CELL UR AU 0 /HPF (0-6); UROBILINOGEN, URINE AUTO 0.2 mg/dL (0.0-2.0); WBC, URINE AUTO 8 /HPF (0-3)
[2017-12-03 18:27] LABS: ALBUMIN 3.7 GM/DL (3.2-5.2); ALBUMIN/GLOBULIN RATIO 1.19 (1.00-1.93); ALKALINE PHOSPHATASE 82 U/L (45-117); ALT/SGPT 12 U/L (12-78); ANION GAP 7 MEQ/L (8-16); AST/SGOT 10 U/L (7-37); BILIRUBIN,TOTAL 0.4 MG/DL (0.2-1.0); BLOOD UREA NITROGEN 24 MG/DL (7-18); CARBON DIOXIDE LEVEL 30 MEQ/L (21-32); CHLORIDE LEVEL 102 MEQ/L (98-107); CREATININE FOR GFR 1.13 MG/DL (0.70-1.30); GLOMERULAR FILTRATION RATE > 60.0 (>35); GLUCOSE, FASTING 213 MG/DL (70-100); POTASSIUM SERUM 4.5 MEQ/L (3.5-5.1); SODIUM LEVEL 139 MEQ/L (136-145); TOTAL PROTEIN 6.8 GM/DL (6.4-8.2)
== END ==
LOC: M LABNEURO 14:06
DX: G20 Parkinson's disease (principal)
CPT/HCPCS: 80053

== ENCOUNTER → 2018-01-08 | Outpatient (CLI) | payer MEDICARE, OTHER ==
[2018-01-08 10:59] LABS: HEMATOCRIT 36.4 % (42.0-52.0); HEMOGLOBIN 12.2 g/dl (13.5-17.5); MEAN CORPUSCULAR HEMOGLOBIN 29.8 pg (27.0-33.0); MEAN CORPUSCULAR HGB CONC 33.5 g/dl (32.0-36.5); PLATELET COUNT, AUTOMATED 207 10^3/uL (150-450); RED BLOOD COUNT 4.09 10^6/uL (4.30-6.10); RED CELL DISTRIBUTION WIDTH 13.2 % (11.5-14.5); WHITE BLOOD COUNT 5.6 10^3/uL (4.0-10.0)
[2018-01-08 11:34] LABS: ALBUMIN 3.7 GM/DL (3.2-5.2); ALBUMIN/GLOBULIN RATIO 1.32 (1.00-1.93); ALKALINE PHOSPHATASE 78 U/L (45-117); ALT/SGPT 16 U/L (12-78); ANION GAP 7 MEQ/L (8-16); AST/SGOT 7 U/L (7-37); BILIRUBIN,TOTAL 0.4 MG/DL (0.2-1.0); BLOOD UREA NITROGEN 20 MG/DL (7-18); CALCIUM LEVEL 8.8 MG/DL (8.8-10.2); CARBON DIOXIDE LEVEL 32 MEQ/L (21-32); CHLORIDE LEVEL 102 MEQ/L (98-107); CHOLESTEROL LEVEL 134 MG/DL (<200); CHOLESTEROL RISK RATIO 2.791 (<5); CREATININE FOR GFR 1.04 MG/DL (0.70-1.30); GLOMERULAR FILTRATION RATE > 60.0 (>35); GLUCOSE, FASTING 171 MG/DL (70-100); HDL CHOLESTEROL 48 MG/DL (>40); LDL CHOLESTEROL 43.2 MG/DL (<100); NON-HDL-C 86 MG/DL; POTASSIUM SERUM 4.1 MEQ/L (3.5-5.1); PROSTATIC SPECIFIC AG MONITOR 0.97 NG/ML (< 4.0); SODIUM LEVEL 141 MEQ/L (136-145); TOTAL PROTEIN 6.5 GM/DL (6.4-8.2); TRIGLYCERIDES LEVEL 214 MG/DL (<150)
[2018-01-08 11:52] LABS: ESTIMATED AVERAGE GLUCOSE 203 MG/DL (60-110); HEMOGLOBIN A1c 8.7 %
== END ==
LOC: M LAB 09:25
DX: R53.83 Other fatigue (principal); I10 Essential (primary) hypertension; Z79.899 Other long term (current) drug therapy; E03.9 Hypothyroidism, unspecified
CPT/HCPCS: 71046

== ENCOUNTER → 2018-08-12 | Outpatient (REF) | payer MEDICARE, OTHER ==
[~2018-08-12] MED LIST changes: +ASPI1TAB15 PO; -ASPI81TA7 PO; -BUME1TA PO; +BUME1TAB3 PO; +KEFL500C17 PO; -KEFL500C7 PO; -METF500T PO; +METF500T13 PO; -ROSU20TA PO; +ROSU20TA4 PO
[2018-08-13 11:07] LABS: FOLATE > 24.0 NG/ML; VITAMIN B12 LEVEL > 2000 PG/ML
== END ==
LOC: M LAB REF 18:27
PROVIDERS: ATTEND Internal Medicine
DX: F03.90 Unspecified dementia, unspecified severity, without behavioral disturbance, psychotic disturbance, mood disturbance, and anxiety (principal)

== ENCOUNTER → 2018-08-22 | Outpatient (REF) | payer MEDICARE, OTHER ==
[2018-08-22 21:53] LABS: APPEARANCE, URINE MANUAL TURBID (CLEAR); COLOR, URINE MANUAL YELLOW (YELLOW)
[2018-08-22 21:54] LABS: GLUCOSE, URINE (UA) MANUAL NEGATIVE (NEGATIVE); KETONE, URINE MANUAL NEGATIVE (NEGATIVE); PROTEIN, URINE MANUAL 3+ mg/dL (NEGATIVE); SPECIFIC GRAVITY,URINE MANUAL 1.015 (1.002-1.035); UROBILINOGEN, URINE MANUAL NORMAL (NORMAL)
[2018-08-22 21:55] LABS: BILIRUBIN, URINE MANUAL NEGATIVE (NEGATIVE); BLOOD URINE MANUAL POSITIVE (NEGATIVE); LEUKOCYTE ESTERASE, URINE MAN POSITIVE (NEGATIVE); NITRITE, URINE MANUAL POSITIVE (NEGATIVE)
[2018-08-22 22:26] LABS: RBC, URINE TNTC /hpf (0-3); SQUAMOUS EPITHELIAL CELL URINE SMALL AMOUNT /hpf (SMALL AMT); TRANSITIONAL EPI CELLS, URINE MOD AMOUNT /hpf; WBC, URINE TNTC /hpf (0-3)
[2018-08-22 22:27] LABS: BACTERIA, URINE SMALL AMOUNT; HYALINE CAST, URINE NONE SEEN /lpf (0-1)
[2018-08-22 22:28] LABS: MUCUS, URINE SMALL AMOUNT (NEGATIVE)
== END ==
LOC: M LAB REF 10:39
PROVIDERS: ATTEND Physician Assistant
DX: N39.0 Urinary tract infection, site not specified (principal)

== ENCOUNTER → 2018-11-13 | Outpatient (REF) | payer MEDICARE, OTHER ==
[2018-11-13 20:04] LABS: APPEARANCE, URINE CLOUDY (CLEAR); BACTERIA, URINE AUTO 1+ (NEGATIVE); BILIRUBIN, URINE AUTO NEGATIVE (NEGATIVE); BLOOD, URINE BLOOD NEGATIVE (NEGATIVE); COLOR, URINE YELLOW (YELLOW); GLUCOSE, URINE (UA) AUTO NEGATIVE (NEGATIVE); KETONE, URINE AUTO TRACE mg/dL (NEGATIVE); LEUKOCYTE ESTERASE, URINE AUTO 3+ (NEGATIVE); MUCUS, URINE SMALL (NEGATIVE); NITRITE, URINE AUTO NEGATIVE (NEGATIVE); PROTEIN, URINE AUTO 1+ mg/dL (NEGATIVE); RBC, URINE AUTO 5 /HPF (0-3); SPECIFIC GRAVITY URINE AUTO 1.011 (1.002-1.035); SQUAMOUS EPITHELIAL CELL UR AU 1 /HPF (0-6); UROBILINOGEN, URINE AUTO 0.2 mg/dL (0.0-2.0); WBC, URINE AUTO 60 /HPF (0-3)
== END ==
LOC: M LAB REF 09:05
PROVIDERS: ATTEND Physician Assistant
DX: N39.0 Urinary tract infection, site not specified (principal)

== ENCOUNTER → 2019-03-06 | Outpatient (REF) | payer MEDICARE, OTHER ==
[~2019-03-06] MED LIST changes: -ROSU20TA4 PO; +ROSU20TA5 PO
[2019-03-06 19:08] LABS: APPEARANCE, URINE CLOUDY (CLEAR); BACTERIA, URINE AUTO 2+ (NEGATIVE); BILIRUBIN, URINE AUTO NEGATIVE (NEGATIVE); BLOOD, URINE BLOOD NEGATIVE (NEGATIVE); COLOR, URINE YELLOW (YELLOW); GLUCOSE, URINE (UA) AUTO NEGATIVE (NEGATIVE); KETONE, URINE AUTO TRACE mg/dL (NEGATIVE); LEUKOCYTE ESTERASE, URINE AUTO 3+ (NEGATIVE); MUCUS, URINE SMALL (NEGATIVE); NITRITE, URINE AUTO NEGATIVE (NEGATIVE); PROTEIN, URINE AUTO NEGATIVE (NEGATIVE); RBC, URINE AUTO 2 /HPF (0-3); SPECIFIC GRAVITY URINE AUTO 1.012 (1.002-1.035); SQUAMOUS EPITHELIAL CELL UR AU 1 /HPF (0-6); TRANSITIONAL EPITHELIAL AUTO <1 /HPF; UROBILINOGEN, URINE AUTO 0.2 mg/dL (0.0-2.0); WBC, URINE AUTO 110 /HPF (0-3)
== END ==
LOC: M LAB REF 10:03
PROVIDERS: ATTEND Nurse Practitioner Family
DX: N39.0 Urinary tract infection, site not specified (principal)

== ENCOUNTER → 2019-05-13 | Outpatient (REF) | payer MEDICARE, OTHER ==
[2019-05-13 14:30] LABS: AMORPHOUS SEDIMENT SMALL (NEGATIVE); APPEARANCE, URINE CLOUDY (CLEAR); BACTERIA, URINE AUTO NEGATIVE (NEGATIVE); BILIRUBIN, URINE AUTO NEGATIVE (NEGATIVE); BLOOD, URINE BLOOD NEGATIVE (NEGATIVE); COLOR, URINE YELLOW (YELLOW); GLUCOSE, URINE (UA) AUTO 1+ mg/dL (NEGATIVE); KETONE, URINE AUTO TRACE mg/dL (NEGATIVE); LEUKOCYTE ESTERASE, URINE AUTO 3+ (NEGATIVE); MUCUS, URINE SMALL (NEGATIVE); NITRITE, URINE AUTO NEGATIVE (NEGATIVE); PROTEIN, URINE AUTO NEGATIVE (NEGATIVE); RBC, URINE AUTO 3 /HPF (0-3); SPECIFIC GRAVITY URINE AUTO 1.015 (1.002-1.035); SQUAMOUS EPITHELIAL CELL UR AU 1 /HPF (0-6); UROBILINOGEN, URINE AUTO 0.2 mg/dL (0.0-2.0); WBC, URINE AUTO 148 /HPF (0-3)
== END ==
LOC: M LAB REF 13:09
PROVIDERS: ATTEND Physician Assistant
DX: N39.0 Urinary tract infection, site not specified (principal)

== ENCOUNTER → 2019-05-23 | Outpatient (REF) | payer MEDICARE, OTHER ==
[2019-05-23 13:56] LABS: AMORPHOUS SEDIMENT SMALL (NEGATIVE); APPEARANCE, URINE HAZY (CLEAR); BACTERIA, URINE AUTO 2+ (NEGATIVE); BILIRUBIN, URINE AUTO NEGATIVE (NEGATIVE); BLOOD, URINE BLOOD 1+ (NEGATIVE); COLOR, URINE YELLOW (YELLOW); GLUCOSE, URINE (UA) AUTO NEGATIVE (NEGATIVE); KETONE, URINE AUTO NEGATIVE (NEGATIVE); LEUKOCYTE ESTERASE, URINE AUTO 1+ (NEGATIVE); NITRITE, URINE AUTO POSITIVE (NEGATIVE); PROTEIN, URINE AUTO 2+ mg/dL (NEGATIVE); RBC, URINE AUTO 18 /HPF (0-3); SPECIFIC GRAVITY URINE AUTO 1.008 (1.002-1.035); SQUAMOUS EPITHELIAL CELL UR AU 0 /HPF (0-6); TRIPLE PHOSPHATE CRYSTALS SMALL; UROBILINOGEN, URINE AUTO 0.2 mg/dL (0.0-2.0); WBC, URINE AUTO 27 /HPF (0-3)
== END ==
LOC: M LAB REF 12:31
PROVIDERS: ATTEND Physician Assistant
DX: N39.0 Urinary tract infection, site not specified (principal)

== ENCOUNTER → 2019-08-08 | Outpatient (REF) | payer MEDICARE, OTHER ==
[~2019-08-08] MED LIST changes: -MAGN400T PO; +MAGN400T3 PO; +MEMA10TA19 PO; -MEMA1TAB2 PO; -PYRI100T2 PO; +VITA100T82 PO
[2019-08-08 13:17] LABS: APPEARANCE, URINE CLOUDY (CLEAR); BACTERIA, URINE AUTO 1+ (NEGATIVE); BILIRUBIN, URINE AUTO NEGATIVE (NEGATIVE); BLOOD, URINE BLOOD 1+ (NEGATIVE); COLOR, URINE YELLOW (YELLOW); GLUCOSE, URINE (UA) AUTO NEGATIVE (NEGATIVE); KETONE, URINE AUTO TRACE mg/dL (NEGATIVE); LEUKOCYTE ESTERASE, URINE AUTO 3+ (NEGATIVE); NITRITE, URINE AUTO POSITIVE (NEGATIVE); PROTEIN, URINE AUTO NEGATIVE (NEGATIVE); RBC, URINE AUTO 6 /HPF (0-3); SPECIFIC GRAVITY URINE AUTO 1.012 (1.002-1.035); SQUAMOUS EPITHELIAL CELL UR AU 1 /HPF (0-6); UROBILINOGEN, URINE AUTO 0.2 mg/dL (0.0-2.0); WBC, URINE AUTO TNTC /HPF (0-3)
== END ==
LOC: M LAB REF 12:39
PROVIDERS: ATTEND Physician Assistant Medical
DX: N39.0 Urinary tract infection, site not specified (principal)

== ENCOUNTER → 2019-08-26 | Outpatient (REF) | payer MEDICARE, OTHER ==
[2019-08-26 17:51] LABS: AMORPHOUS SEDIMENT SMALL (NEGATIVE); APPEARANCE, URINE CLOUDY (CLEAR); BACTERIA, URINE AUTO 1+ (NEGATIVE); BILIRUBIN, URINE AUTO NEGATIVE (NEGATIVE); BLOOD, URINE BLOOD 1+ (NEGATIVE); COLOR, URINE YELLOW (YELLOW); GLUCOSE, URINE (UA) AUTO NEGATIVE (NEGATIVE); KETONE, URINE AUTO NEGATIVE (NEGATIVE); LEUKOCYTE ESTERASE, URINE AUTO 3+ (NEGATIVE); NITRITE, URINE AUTO POSITIVE (NEGATIVE); PROTEIN, URINE AUTO NEGATIVE (NEGATIVE); RBC, URINE AUTO 6 /HPF (0-3); SPECIFIC GRAVITY URINE AUTO 1.005 (1.002-1.035); SQUAMOUS EPITHELIAL CELL UR AU 0 /HPF (0-6); UROBILINOGEN, URINE AUTO 0.2 mg/dL (0.0-2.0); WBC, URINE AUTO 117 /HPF (0-3)
== END ==
LOC: M LAB REF 16:52
PROVIDERS: ATTEND Physician Assistant
DX: N39.0 Urinary tract infection, site not specified (principal)

== ENCOUNTER → 2019-09-13 | Outpatient (CLI) | payer MEDICARE, OTHER ==
--- NOTE | 2019-09-13 19:51 | REP ---
COOKIE SWALLOW The procedure was performed under the direct supervision of Dr. Jernigan. The procedure was performed with Annalisa Hughes from speech pathology present. 5 ml aliquots of thin, pudding, mixed fruit, soft and solid consistency barium as well as a barium pill was administered. With thin consistency barium there is laryngeal penetration. A detailed report of this examination will be provided by speech pathology. 1.7 minutes of fluoroscopy time was utilized for this procedure. Electronically Signed by DIONNA Cantrell 09/13/2019 03:58 P Electronically Signed by Jimi Jernigan MD 09/13/2019 07:41 P
== END ==
LOC: M ST 10:35
PROVIDERS: ATTEND Surgery
DX: R13.10 Dysphagia, unspecified (principal)

== ENCOUNTER 2019-09-18 10:49 | Emergency (ER) | payer MEDICARE, OTHER ==
[~2019-09-18] VITALS: Ht 175.3 cm; Wt 81.8 kg
[2019-09-18] MEDS ORDERED: LIDOCAINE 2% 5ML JELLY UROJET TOP ONE (11:15)
--- NOTE | 2019-09-18 11:33 | REP ---
Clinical: Altered mental status. Comparison: 09/06/2016 . Findings: Age-related atrophy and microvascular ischemic changes are appreciated. The ventricles and sulci are symmetric. Curry-white differentiation is maintained. There is no evidence for acute intracranial hemorrhage, mass/mass effect, pathology or infarction. No extra-axial fluid collection. Calvarium is intact. Paranasal sinuses and mastoid air cells are clear. Impression: Age related atrophy and microvascular ischemic changes. No acute intracranial hemorrhage, infarction, or mass/mass effect. Electronically Signed by Domingo Dave MD 09/18/2019 11:24 A
[2019-09-18] MEDS ORDERED: DONE10TA90 PO (11:34)
[2019-09-18] MEDS ORDERED: SPIR-10 PO (11:34)
[2019-09-18] MEDS ORDERED: MYRB25TA PO (11:34)
[2019-09-18] MEDS ORDERED: CARB25TA9 PO (11:34)
[2019-09-18] MEDS ORDERED: CARB25TA31 PO (11:34)
[2019-09-18] MEDS ORDERED: OMEP-218 PO (11:34)
[2019-09-18] MEDS ORDERED: CALC600T57 PO (11:35)
[2019-09-18] MEDS ORDERED: B-121CAP PO (11:35)
[2019-09-18] MEDS ORDERED: CVS50CAP PO (11:35)
--- NOTE | 2019-09-18 11:38 | REP ---
Clinical: Altered mental status . Comparison: 04/09/2018 . Findings: The mediastinum and cardiac silhouette are stable and within normal limits for portable technique. The lung valles are clear without acute consolidation, effusion, or pneumothorax. Subtle blunting of the left costophrenic angle may represent chronic change versus small pleural reaction. Skeletal structures are intact. Impression: No focal consolidation. Presumed chronic changes. As above. Electronically Signed by Domingo Dave MD 09/18/2019 11:30 A
[2019-09-18 12:10] LABS: BASO # 0.1 10^3/uL (0.0-0.2); BASO % 0.8 % (0.0-1.0); EOS # 0.5 10^3/uL (0.0-0.5); EOS % 6.1 % (0.0-3.0); HEMATOCRIT 41.7 % (42.0-52.0); HEMOGLOBIN 12.7 g/dl (13.5-17.5); LYMPH # 2.2 10^3/uL (1.5-5.0); LYMPH % 29.3 % (24.0-44.0); MEAN CORPUSCULAR HEMOGLOBIN 27.5 pg (27.0-33.0); MEAN CORPUSCULAR HGB CONC 30.5 g/dl (32.0-36.5); MEAN CORPUSCULAR VOLUME 90.3 fl (80.0-96.0); MONO # 0.6 10^3/uL (0.0-0.8); MONO % 7.6 % (0.0-5.0); NEUTROPHILS # 4.1 10^3/uL (1.5-8.5); NEUTROPHILS % 55.8 % (36.0-66.0); PLATELET COUNT, AUTOMATED 247 10^3/uL (150-450); RED BLOOD COUNT 4.62 10^6/uL (4.30-6.10); WHITE BLOOD COUNT 7.4 10^3/uL (4.0-10.0)
[2019-09-18] MEDS ORDERED: NS 500 ML IV ONE (12:30)
[2019-09-18 12:41] LABS: ALBUMIN 3.7 GM/DL (3.2-5.2); ALT/SGPT 10 U/L (12-78); BILIRUBIN,DIRECT < 0.1 MG/DL (0.0-0.2); BILIRUBIN,TOTAL 0.3 MG/DL (0.2-1.0); BLOOD UREA NITROGEN 16 MG/DL (7-18); CARBON DIOXIDE LEVEL 32 MEQ/L (21-32); CHLORIDE LEVEL 105 MEQ/L (98-107); CK-MB VALUE MASS 1.7 NG/ML (<3.6); CPK CREATINE PHOSPHOKINASE 75 U/L (39-308); CREATININE FOR GFR 1.04 MG/DL (0.70-1.30); GLOMERULAR FILTRATION RATE > 60.0 (>35); GLUCOSE, FASTING 161 MG/DL (70-100); MB/CK RELATIVE INDEX 2.27 (< OR =4); POTASSIUM SERUM 4.1 MEQ/L (3.5-5.1); SODIUM LEVEL 142 MEQ/L (136-145); TOTAL PROTEIN 6.9 GM/DL (6.4-8.2); TROPONIN I 0.02 NG/ML (< 0.10)
[2019-09-18 12:42] LABS: FREE T4 1.34 NG/DL (0.76-1.46); THYROID STIMULATING HORMONE 2.44 uIU/ML (0.358-3.740)
[2019-09-18 15:00] VITALS: BP 121/60
--- NOTE | 2019-09-18 19:14 | ECGEPIP ---
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
== END 2019-09-18 15:08 | disposition home or self-care (01) ==
LOC: EDBD 10:49 → M ED 10:49
DX: R55 Syncope and collapse (principal); R53.1 Weakness; I67.82 Cerebral ischemia; E11.9 Type 2 diabetes mellitus without complications; I11.0 Hypertensive heart disease with heart failure; E03.9 Hypothyroidism, unspecified; E78.5 Hyperlipidemia, unspecified; Z79.82 Long term (current) use of aspirin; Z79.84 Long term (current) use of oral hypoglycemic drugs; Z79.899 Other long term (current) drug therapy

== ENCOUNTER → 2019-10-03 | Outpatient (REF) | payer MEDICARE, OTHER ==
[~2019-10-03] MED LIST changes: +B-121CAP PO; +CALC600T57 PO; +CARB25TA31 PO; +CARB25TA9 PO; +CVS50CAP PO; +DONE10TA90 PO; +MYRB25TA PO; +OMEP-218 PO; +SPIR-10 PO
[2019-10-03 14:07] LABS: APPEARANCE, URINE TURBID (CLEAR); BACTERIA, URINE AUTO 3+ (NEGATIVE); BILIRUBIN, URINE AUTO NEGATIVE (NEGATIVE); BLOOD, URINE BLOOD NEGATIVE (NEGATIVE); COLOR, URINE YELLOW (YELLOW); GLUCOSE, URINE (UA) AUTO NEGATIVE (NEGATIVE); KETONE, URINE AUTO NEGATIVE (NEGATIVE); LEUKOCYTE ESTERASE, URINE AUTO 3+ (NEGATIVE); MUCUS, URINE SMALL (NEGATIVE); NITRITE, URINE AUTO NEGATIVE (NEGATIVE); PROTEIN, URINE AUTO 1+ mg/dL (NEGATIVE); RBC, URINE AUTO 78 /HPF (0-3); SPECIFIC GRAVITY URINE AUTO 1.014 (1.002-1.035); SQUAMOUS EPITHELIAL CELL UR AU 0 /HPF (0-6); UROBILINOGEN, URINE AUTO 0.2 mg/dL (0.0-2.0); WBC, URINE AUTO TNTC /HPF (0-3)
== END ==
LOC: M LAB REF 13:22
PROVIDERS: ATTEND Physician Assistant Medical
DX: N39.0 Urinary tract infection, site not specified (principal)

== ENCOUNTER → 2019-10-20 | Outpatient (REF) | payer MEDICARE, OTHER ==
[~2019-10-20] MED LIST changes: +SULF1TAB93 PO; +TAMS1CAP17 PO
[2019-10-20 19:23] LABS: APPEARANCE, URINE CLEAR (CLEAR); BILIRUBIN, URINE AUTO NEGATIVE (NEGATIVE); BLOOD, URINE BLOOD NEGATIVE (NEGATIVE); COLOR, URINE YELLOW (YELLOW); GLUCOSE, URINE (UA) AUTO NEGATIVE (NEGATIVE); KETONE, URINE AUTO NEGATIVE (NEGATIVE); LEUKOCYTE ESTERASE, URINE AUTO TRACE (NEGATIVE); NITRITE, URINE AUTO NEGATIVE (NEGATIVE); PROTEIN, URINE AUTO NEGATIVE (NEGATIVE); RBC, URINE AUTO 1 /HPF (0-3); UROBILINOGEN, URINE AUTO 0.2 mg/dL (0.0-2.0); WBC, URINE AUTO 10 /HPF (0-3)
== END ==
LOC: M SMT 17:06
PROVIDERS: ATTEND Nurse Practitioner Women's Health
DX: N39.0 Urinary tract infection, site not specified (principal)
CPT/HCPCS: 51703; 51798; 81001; 87086; G0463

== ENCOUNTER 2019-10-27 14:11 | Observation (INO) | payer MEDICARE, OTHER ==
[~2019-10-27] VITALS: Ht 175.3 cm; Wt 77.0 kg
[~2019-10-27 14:11] MED LIST changes: -SULF1TAB93 PO; -TAMS1CAP17 PO
[2019-10-27] MEDS ORDERED: TAMS1CAP17 PO (14:47)
[2019-10-27] MEDS ORDERED: SULF1TAB93 PO (14:47)
[2019-10-27 14:53] LABS: BASO # 0.1 10^3/uL (0.0-0.2); EOS # 0.4 10^3/uL (0.0-0.5); EOS % 5.5 % (0.0-3.0); HEMATOCRIT 35.3 % (42.0-52.0); HEMOGLOBIN 11.2 g/dl (13.5-17.5); LYMPH # 1.6 10^3/uL (1.5-5.0); LYMPH % 22.6 % (24.0-44.0); MEAN CORPUSCULAR HEMOGLOBIN 28.5 pg (27.0-33.0); MEAN CORPUSCULAR HGB CONC 31.7 g/dl (32.0-36.5); MEAN CORPUSCULAR VOLUME 89.8 fl (80.0-96.0); MONO # 0.5 10^3/uL (0.0-0.8); MONO % 6.4 % (0.0-5.0); NEUTROPHILS # 4.5 10^3/uL (1.5-8.5); NEUTROPHILS % 64.2 % (36.0-66.0); PLATELET COUNT, AUTOMATED 214 10^3/uL (150-450); RED BLOOD COUNT 3.93 10^6/uL (4.30-6.10); WHITE BLOOD COUNT 7.1 10^3/uL (4.0-10.0)
--- NOTE | 2019-10-27 15:01 | REP ---
PORTABLE CHEST X-RAY: Single view. HISTORY: Syncope. COMPARISON CHEST X-RAY: September 18, 2019. FINDINGS: The lungs are symmetrically aerated and free of infiltrate. Pleural angles are sharp. Cardiomediastinal silhouette is unremarkable and unchanged. Pulmonary vasculature is not increased. Monitoring electrodes overlie the chest. IMPRESSION: No acute cardiopulmonary disease. Electronically Signed by Jimi Jernigan MD 10/27/2019 03:17 P
[2019-10-27 15:15] LABS: INR 1.07; PROTHROMBIN TIME 13.6 SECONDS (11.8-14.0)
[2019-10-27 15:16] LABS: PARTIAL THROMBOPLASTIN TIME 31.8 SECONDS (25.0-38.4)
[2019-10-27 15:26] LABS: BLOOD UREA NITROGEN 29 MG/DL (7-18); CALCIUM LEVEL 8.8 MG/DL (8.8-10.2); CARBON DIOXIDE LEVEL 26 MEQ/L (21-32); CHLORIDE LEVEL 102 MEQ/L (98-107); CK-MB VALUE MASS < 1.0 NG/ML (<3.6); CPK CREATINE PHOSPHOKINASE 87 U/L (39-308); CREATININE FOR GFR 1.66 MG/DL (0.70-1.30); GLOMERULAR FILTRATION RATE 42.3 (>35); GLUCOSE, FASTING 161 MG/DL (70-100); MB/CK RELATIVE INDEX 1.15 (< OR =4); POTASSIUM SERUM 4.9 MEQ/L (3.5-5.1); SODIUM LEVEL 136 MEQ/L (136-145); TROPONIN I < 0.02 NG/ML (< 0.10)
[2019-10-27] MEDS ORDERED: GLUCOSE 4 GM CHEW TABLET PO PRN (18:00)
[2019-10-27] MEDS ORDERED: GLUCAGON FOR INJ 1 MG VIAL (J1610) SC PRN (18:00)
[2019-10-27] MEDS ORDERED: ACETAMINOPHEN TAB 650MG DOSE (2X325MG) PO PRN (18:00)
[2019-10-27] MEDS ORDERED: DEXTROSE 50% 50 ML SYRINGE IV PRN (18:00)
[2019-10-27] MEDS ORDERED: PILL CUTTER 1 EACH XX PRN (18:30)
[2019-10-27] MEDS: ASPIRIN 81 MG ENTERIC TAB PO SCH (18:42)
[2019-10-27] MEDS: NS 1,000 ML IV SCH (18:43)
[2019-10-27 19:16] VITALS: BP 106/56
--- NOTE | 2019-10-27 19:43 | HPEPDOC ---
[facility] Medical History & Physical Date of Admission Oct 27, 2019 Date of Service: Oct 27, 2019 Attending Physician: MICHAEL JEFFERSON DO History and Physical CHIEF COMPLAINT: Syncope HISTORY OF PRESENT ILLNESS: Patient is an 84 year old male who presented to the [facility] ER for a syncopal event. The patient has baseline Parkinsons dementia and the HPI was partially obtained from the patients son over telephone. Per the patients son, the patient lives at home with his girlfriend. The patient can complete his ADLs but is apparently assisted by his girlfriend. Last Thursday the patients girlfriend was hospitalized for a urinary tract infection. Subsequently the patients son had noted that the patient was not eating as much as he normally does. He was noted to be more tired then normal and according to the son was weak. The patients sone noted that he had continued weakness for the past week leading up to today. The patients son had visited him and transitioned the patient to his chair. The patient was sitting in his chair when he suddenly "passed out". The patients son noted that this was a brief episode and lasted a few seconds. When the patient came too he was a little confused but quickly returned to his baseline. The patient had denied any chest pain or shortness of breath at the time. The patient subsequently came to the ER In the ER the patient was found to have an elevation in his creatinine. He was otherwise vitally stable. The patient received an EKG which was unrevealing. spitalist service was consulted and the patient was admitted for further evaluation and management PAST MEDICAL HISTORY: 1. Parkinsons Dementia 2. Diabetes Mellitus Type 2 3. Congestive Heart Failure 4. Hypothyroidism 5. GERD PAST SURGICAL HISTORY: 1. Cholecystectomy 2. Lithotripsy SOCIAL HISTORY: Patient lives at home with his girl friend. He completes all his ADLs on his own. He denies any tobacco use. He denies any alcohol use. He denies any IV or illicit drug use FAMILY HISTORY: Patient has a son who is living and well ALLERGIES: Please see below. REVIEW OF SYSTEMS: CONSTITUTIONAL: Denies fevers, chills, unintentional weightloss. Denies night sweats HEENT: Denies dysphagia. Denies pain on swallowing CARDIOVASCULAR: Denies chest pain, palpitations or feelings of the heart racing RESPIRATORY: Denies shortness of breath. Denies cough. Denies sputum production GASTROINTESTINAL: Denies abdominal pain. Denies nausea, vomiting, diarrhea or constipation GENITOURINARY: Denies increased frequency or urgency. Denies dysuria SKIN: Denies rashes or lesions MUSCULOSKELETAL: Denies muscle weakness or pain NEUROLOGICAL: Denies changes in gait or speech PSYCHIATRIC: Denies depression or anxiety ENDOCRINE: Admits to diabetes. HEMATOLOGIC/LYMPHATIC: Denies easy bruising or bleeding HOME MEDICATIONS: Please see below. PHYSICAL EXAMINATION: VITAL SIGNS: Temperature 97.3, pulse 61, respiratory rate 14, blood pressure 138/66, pulse oximetry 97% on room air. GENERAL APPEARANCE: Awake, alert, and oriented. Appears in no acute distress. Lying comfortably in bed HEENT: Atraumatic normocephalic. Eyes are nonicteric. Trachea is midline CARDIOVASCULAR: Regular rate and rhythm. 2/6 systolic ejection murmur. LUNGS: Clear vesicular breath sounds bilaterally with good respiratory effort. No wheezes, rhonchi, or rales ABDOMEN: Soft, nondistended. Nontender. No rebound tenderness or guarding. Normoactive bowel sounds throughout MUSCULOSKELETAL: 5/5 muscle strength testing in bilateral upper and lower extremities EXTREMITIES: No edema. Full and equal pulses bilaterally NEUROLOGICAL: No focal neurological deficits PSYCHIATRIC: Mood and affect appear appropriate LABORATORY DATA: See below. IMAGING: PORTABLE CHEST X-RAY: Single view. HISTORY: Syncope. COMPARISON CHEST X-RAY: September 18, 2019. FINDINGS: The lungs are symmetrically aerated and free of infiltrate. Pleural angles are sharp. Cardiomediastinal silhouette is unremarkable and unchanged. Pulmonary vasculature is not increased. Monitoring electrodes overlie the chest. IMPRESSION: No acute cardiopulmonary disease. Electronically Signed by Jimi Jernigan MD 10/27/2019 03:17 P MICROBIOLOGY: Please see below. ASSESSMENT: Patient is an 84 year old male presenting to the [facility] ER with complaint of a syncopal episode. Patient was vitally stable on presentation and admitted for observations overnight . PLAN: 1. Syncope 2/2 vasovagal vs cardiogenic vs autonomic insufficiency -Patient had a witnessed syncopal event at home. He did not fall or hit his head. The patient has a history of bradycardia although no documented history of heart block. Additionally he does have parkinsons which may cause autonomic insufficiency. Patient had also been noted to have poor oral intake while at home and may be orthostatic -Will give patient IV fluids. Orthostatic vital signs until negative -Echocardiogram as patient has a murmur. Cannot exclude aortic stenosis -Will place patient on telemetry -Will not get CT of the head as the patient does not have any focal neurol ogical deficits or history of trauma 2. Parkinsons Disease -Patient has parkinsons. He also has mild dementia secondary to this. The patients son had mentioned that the patient does develop hospital delirium. If this occurs consider reorientation before administering antipsychotics -Will continue patients home medications 3. Acute Kidney Injury secondary to prerenal/dehydration -Patient has an BRAXTON likely secondary to poor oral intake. Will continue with IV fluids -Will trend Cr 4. Diabetes Mellitus Type 2 -Patient has diabetes mellitus type 2. Will hold metformin. Continue sliding scale insulin 5. CHF -Patient has history of CHF. Will continue with IV fluid hydration. 6. Hypothyroidism -Will continue home Levothyroxine 7. GERD -Will continue home medication 8. DVT prophylaxis -TEDS and Sequentials Vital Signs Vital Signs Date Time Temp Pulse Resp B/P (MAP) Pulse Ox O2 Delivery O2 Flow Rate FiO2 10/27/19 19:04 97.3 61 14 97 Room Air 10/27/19 19:00 138/66 (90) Laboratory Data Labs 24H Laboratory Tests 2 10/27/19 14:37: Bedside Glucose (Misc Panel) 162H 10/27/19 14:38: Immature Granulocyte % (Auto) 0.3, Neutrophils (%) (Auto) 64.2, Lymphocytes (%) (Auto) 22.6L, Monocytes (%) (Auto) 6.4H, Eosinophils (%) (Auto) 5.5H, Basophils (%) (Auto) 1.0, Neutrophils # (Auto) 4.5, Lymphocytes # (Auto) 1.6, Monocytes # (Auto) 0.5, Eosinophils # (Auto) 0.4, Basophils # (Auto) 0.1, Nucleated Red Blood Cells % (auto) 0.0, Prothrombin Time 13.6, Prothromb Time International Ratio 1.07, Activated Partial Thromboplast Time 31.8, Anion Gap 8, Glomerular Filtration Rate 42.3, Calcium Level 8.8, Total Creatine Kinase 87, Creatine Kinase MB < 1.0, Creatine Kinase MB Relative Index 1.15, Troponin I < 0.02, Thyroid Stimulating Hormone (TSH) 1.300 10/27/19 15:52: Urine Color YELLOW, Urine Appearance CLEAR, Urine pH 6.0, Urine Specific [place] 1.012, Urine Protein NEGATIVE, Urine Glucose (UA) NEGATIVE, Urine Ketones TRACEH, Urine Blood 1+H, Urine Nitrite NEGATIVE, Urine Bilirubin NEGATIVE, Urine Urobilinogen 0.2, Urine Leukocyte Esterase TRACEH, Urine WBC (Auto) 1, Urine RBC (Auto) 26H, Urine Hyaline Casts (Auto) 9, Urine Bacteria (Auto) NEGATIVE, Urine Squamous Epithelial Cells 0, Urine Mucus (Auto) SMALL, Urine Sperm (Auto) CBC/BMP Laboratory Tests 10/27/19 14:38 Microbiology Microbiology 10/27/19 Urine Culture, Received Pending Home Medications Scheduled Aspirin (Aspirin EC) 81 Mg Tab, 81 MG PO QPM @ 1900 Bumetanide (Bumetanide) 1 Mg Tab, 2 MG PO DAILY @ 0700 Calcium Carbonate/Vitamin D3 (Calcium 600-Vit D3 200 Tablet) 1 Each Tablet, 1 TAB PO BID Carbidopa/Levodopa (Carbidopa-Levo ER 25-100 Tab) 1 Each Tablet.er, 1 TAB PO QHS Carbidopa/Levodopa (Carbidopa-Levodopa 25-100 Tab) 1 Each Tablet, 2.5 TAB PO TID Cyanocobalamin (Vitamin B-12) (Vitamin B-12) 5,000 Mcg Capsule, 5,000 MCG PO DAILY Docusate Sodium (Stool Softener) 50 Mg Capsule, 50 MG PO BID Donepezil HCl (Donepezil HCl) 10 Mg Tablet, 10 MG PO QHS Levothyroxine Sodium (Synthroid) 125 Mcg Tab, 125 MCG PO QAM Lutein (Lutein) 10 Mg Tab, 10 MG PO DAILY @ 1200 Magnesium Oxide (Magnesium Oxide) 400 Mg Tab, 400 MG PO BID @ 1200 and 2200 Memantine HCl (Memantine HCl) 10 Mg Tab, 10 MG PO BID @ 1200 and HS Metformin HCl (Metformin HCl) 500 Mg Tab, 500 MG PO BID Daily and @ 1900 Omeprazole (Omeprazole) 20 Mg Capsule.dr, 20 MG PO BID @ 0700 & HS Spironolactone (Spironolactone) 25 Mg Tablet, 12.5 MG PO DAILY @ 0700 Sulfamethoxazole/Trimethoprim (Sulfamethoxazole-Tmp Ds Tablet) 1 Each Tablet, 1 TAB PO BID Tamsulosin Hcl (Tamsulosin HCl) 0.4 Mg Capsule, 0.4 MG PO DAILY Ubidecarenone (Co Q-10) 10 Mg Cap, 10 MG PO QPM @ 1900 Allergies Coded Allergies: No Known Allergies (Unverified , 09/06/16) A-FIB/CHADSVASC A-FIB History Current/History of A-Fib/PAF?: No OMKAR STRANGE DO Oct 27, 2019 19:43
[2019-10-27] MEDS: HumaLOG INSULIN (NovoLOG) PER UNIT SC SCH (20:37)
[2019-10-27] MEDS: OMEPRAZOLE 20 MG CAP PO SCH (20:49)
[2019-10-27] MEDS: MAGNESIUM OXIDE 400 MG TAB (MAG-OX) PO SCH (20:49)
[2019-10-27] MEDS: DONEPEZIL 5 MG TAB PO SCH (20:49)
[2019-10-27] MEDS: SINEMET**CR** 25/100 TABCR PO SCH (20:49)
[2019-10-27] MEDS: BACTRIM 160MG/800MG DS TAB PO SCH (20:49)
[2019-10-28] MEDS ORDERED: diphenhydrAMINE CREAM 30GM TOP PRN (00:45)
[2019-10-28] MEDS: NS 1,000 ML IV SCH ×2 (04:50→14:05)
[2019-10-28 05:43] LABS: MEAN CORPUSCULAR HEMOGLOBIN 28.6 pg (27.0-33.0); MEAN CORPUSCULAR HGB CONC 32.3 g/dl (32.0-36.5); MEAN CORPUSCULAR VOLUME 88.6 fl (80.0-96.0); PLATELET COUNT, AUTOMATED 204 10^3/uL (150-450); WHITE BLOOD COUNT 6.2 10^3/uL (4.0-10.0)
[2019-10-28 06:00] VITALS: BP 116/57
[2019-10-28 06:04] LABS: CALCIUM LEVEL 8.2 MG/DL (8.8-10.2); CREATININE FOR GFR 1.35 MG/DL (0.70-1.30); GLOMERULAR FILTRATION RATE 53.7 (>35)
[2019-10-28] MEDS: OMEPRAZOLE 20 MG CAP PO SCH ×2 (06:31→21:00)
[2019-10-28] MEDS: LEVOTHYROXINE 125MCG TABLET (0.125MG) PO SCH (06:32)
[2019-10-28] MEDS: HumaLOG INSULIN (NovoLOG) PER UNIT SC SCH ×4 (08:42→20:49)
[2019-10-28] MEDS: BACTRIM 160MG/800MG DS TAB PO SCH ×2 (08:42→21:00)
[2019-10-28] MEDS: TAMSULOSIN 0.4 MG CAP PO SCH (08:42)
[2019-10-28] MEDS: SINEMET 25-100 MG TAB PO SCH ×3 (08:42→17:10)
[2019-10-28 09:30] VITALS: BP_SYST 107; BP_SYST 155; BP_SYST 161; BP_DIAS 53; BP_DIAS 72
--- NOTE | 2019-10-28 11:38 | IPNPDOC ---
Date Seen The patient was seen on 10/28/19. Progress Note SUBJECTIVE: Patient was seen and examined at the bedside this morning. He states he feels very tired and that he was unable to sleep well last night. Otherwise, no issues reported by nursing overnight. Telemetry was reviewed and no arrhythmias were noted. Patient did have periods of bradycardia in the 50s while he was sleeping but remained in sinus rhythm throughout most of the day yesterday. OBJECTIVE PHYSICAL EXAMINATION: VITAL SIGNS: Temperature 97.3, pulse 61, respiratory rate 14, blood pressure 138/66, pulse oximetry 97% on room air. GENERAL APPEARANCE: Awake, alert, and oriented. Appears in no acute distress. Sitting up at the bedside. HEENT: Atraumatic normocephalic. Eyes are nonicteric. Trachea is midline CARDIOVASCULAR: Regular rate and rhythm. 2/6 systolic ejection murmur. LUNGS: Clear vesicular breath sounds bilaterally with good respiratory effort. No wheezes, rhonchi, or rales ABDOMEN: Soft, nondistended. Nontender. No rebound tenderness or guarding. Normoactive bowel sounds throughout MUSCULOSKELETAL: 5/5 muscle strength testing in bilateral upper and lower extremities EXTREMITIES: No edema. Full and equal pulses bilaterally NEUROLOGICAL: No focal neurological deficits PSYCHIATRIC: Mood and affect appear appropriate LABORATORY DATA: See below. IMAGING: PORTABLE CHEST X-RAY: Single view. HISTORY: Syncope. COMPARISON CHEST X-RAY: September 18, 2019. FINDINGS: The lungs are symmetrically aerated and free of infiltrate. Pleural angles are sharp. Cardiomediastinal silhouette is unremarkable and unchanged. Pulmonary vasculature is not increased. Monitoring electrodes overlie the chest. IMPRESSION: No acute cardiopulmonary disease. MICROBIOLOGY: Please see below. ASSESSMENT: Patient is an 84 year old male presenting to the [facility] ER with complaint of a syncopal episode. Patient is on continuous telemetry and is currently undergoing workup for syncope. He will work with PT/OT today. . PLAN: 1. Syncope 2/2 vasovagal vs cardiogenic vs autonomic insufficiency -Likely 2/2 Parkinson's disease vs orthostasis due to poor oral intake -Continue IV fluids. Orthostatic vital signs until negative -Echocardiogram pending -Continuous telemetry -No head CT indicated 2. Parkinsons Disease -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 Caution for hospital-associated delirium with frequent reorientation, lights on during the day, will refrain from more meds at the moment. -Continue home PD meds 3. Acute Kidney Injury secondary to prerenal/dehydration -Patient has an BRAXTON likely secondary to poor oral intake. Will continue with IV fluids -Cr improved to 1.35 today from 1.66 yesterday. Seems 4. Diabetes Mellitus Type 2 -Holding metformin. Continue sliding scale insulin 5. CHF -Continue with IV fluids for now 6. Hypothyroidism -Will continue home Levothyroxine 7. GERD -Will continue home medication 8. DVT prophylaxis -TEDS and Sequentials DISPO: pending work with PT/OT, echo results, possible discharge within 24 hours VS, I&O, 24H, Fishbone Vital Signs/I&O Vital Signs Date Time Temp Pulse Resp B/P (MAP) Pulse Ox O2 Delivery O2 Flow Rate FiO2 10/28/19 09:30 53 161/72 (101) 55 155/72 (99) 56 107/53 (71) 10/28/19 06:00 97.7 18 96 Room Air I&O- Last 24 Hours up to 6 AM 10/28/19 06:00 Intake Total 1445 ml Output Total 825 ml Balance 620 ml Laboratory Data 24H LABS Laboratory Tests 2 10/27/19 14:37: Bedside Glucose (Misc Panel) 162H 10/27/19 14:38: Immature Granulocyte % (Auto) 0.3, Neutrophils (%) (Auto) 64.2, Lymphocytes (%) (Auto) 22.6L, Monocytes (%) (Auto) 6.4H, Eosinophils (%) (Auto) 5.5H, Basophils (%) (Auto) 1.0, Neutrophils # (Auto) 4.5, Lymphocytes # (Auto) 1.6, Monocytes # (Auto) 0.5, Eosinophils # (Auto) 0.4, Basophils # (Auto) 0.1, Nucleated Red Blood Cells % (auto) 0.0, Prothrombin Time 13.6, Prothromb Time International Ratio 1.07, Activated Partial Thromboplast Time 31.8, Anion Gap 8, Glomerular Filtration Rate 42.3, Calcium Level 8.8, Total Creatine Kinase 87, Creatine Ki nase MB < 1.0, Creatine Kinase MB Relative Index 1.15, Troponin I < 0.02, Thyroid Stimulating Hormone (TSH) 1.300 10/27/19 15:52: Urine Color YELLOW, Urine Appearance CLEAR, Urine pH 6.0, Urine Specific [place] 1.012, Urine Protein NEGATIVE, Urine Glucose (UA) NEGATIVE, Urine Ketones TRACEH, Urine Blood 1+H, Urine Nitrite NEGATIVE, Urine Bilirubin NEGATIVE, Urine Urobilinogen 0.2, Urine Leukocyte Esterase TRACEH, Urine WBC (Auto) 1, Urine RBC (Auto) 26H, Urine Hyaline Casts (Auto) 9, Urine Bacteria (Auto) NEGATIVE, Urine Squamous Epithelial Cells 0, Urine Mucus (Auto) SMALL, Urine Sperm (Auto) 10/27/19 20:02: Bedside Glucose (Misc Panel) 173H 10/28/19 05:24: Nucleated Red Blood Cells % (auto) 0.0, Anion Gap 3L, Glomerular Filtration Rate 53.7, Calcium Level 8.2L CBC/BMP Laboratory Tests 10/27/19 14:38 10/28/19 05:24 Microbiology Microbiology 10/27/19 Urine Culture, Received Pending GME ATTESTATION GME ATTESTATION My faculty preceptor for this patient encounter was physically present during the encounter and was fully available. All aspects of the patient interview, examination, medical decision making process, and medical care plan development were reviewed and approved by the faculty preceptor. The faculty preceptor is aware and concurs with the plan as stated in the body of this note and will attest to such by his/her cosignature. ARIS CACERES MD Oct 28, 2019 11:38
[2019-10-28] MEDS: MAGNESIUM OXIDE 400 MG TAB (MAG-OX) PO SCH ×2 (12:05→21:00)
[2019-10-28 14:00] VITALS: BP 106/52
[2019-10-28] MEDS: ASPIRIN 81 MG ENTERIC TAB PO SCH (17:10)
--- NOTE | 2019-10-28 18:38 | ECGEPIP ---
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
[2019-10-28] MEDS: DONEPEZIL 5 MG TAB PO SCH (21:00)
[2019-10-28] MEDS: SINEMET**CR** 25/100 TABCR PO SCH (21:00)
[2019-10-28 22:00] VITALS: BP 122/59
[2019-10-29] MEDS: NS 1,000 ML IV SCH ×2 (00:15→09:31)
[2019-10-29 06:00] VITALS: BP 123/59
[2019-10-29 06:22] LABS: HEMATOCRIT 30.8 % (42.0-52.0); HEMOGLOBIN 9.5 g/dl (13.5-17.5); MEAN CORPUSCULAR HGB CONC 30.8 g/dl (32.0-36.5); MEAN CORPUSCULAR VOLUME 90.9 fl (80.0-96.0); PLATELET COUNT, AUTOMATED 200 10^3/uL (150-450); RED BLOOD COUNT 3.39 10^6/uL (4.30-6.10); WHITE BLOOD COUNT 5.4 10^3/uL (4.0-10.0)
[2019-10-29 06:30] VITALS: BP_SYST 107; BP_SYST 123; BP_SYST 98; BP_DIAS 53; BP_DIAS 56; BP_DIAS 59
[2019-10-29] MEDS: OMEPRAZOLE 20 MG CAP PO SCH (06:30)
[2019-10-29] MEDS: LEVOTHYROXINE 125MCG TABLET (0.125MG) PO SCH (06:30)
[2019-10-29 06:38] LABS: BLOOD UREA NITROGEN 20 MG/DL (7-18); CALCIUM LEVEL 8.1 MG/DL (8.8-10.2); CARBON DIOXIDE LEVEL 29 MEQ/L (21-32); CHLORIDE LEVEL 110 MEQ/L (98-107); CREATININE FOR GFR 1.07 MG/DL (0.70-1.30); GLOMERULAR FILTRATION RATE > 60.0 (>35); GLUCOSE, FASTING 133 MG/DL (70-100); POTASSIUM SERUM 4.2 MEQ/L (3.5-5.1); SODIUM LEVEL 139 MEQ/L (136-145)
[2019-10-29] MEDS: TAMSULOSIN 0.4 MG CAP PO SCH (09:29)
[2019-10-29] MEDS: BACTRIM 160MG/800MG DS TAB PO SCH (09:29)
[2019-10-29] MEDS: SINEMET 25-100 MG TAB PO SCH ×2 (09:29→13:41)
[2019-10-29] MEDS: HumaLOG INSULIN (NovoLOG) PER UNIT SC SCH ×2 (09:30→12:00)
--- NOTE | 2019-10-29 10:31 | DS.PDOC ---
Discharge Summary General Date of Admission Oct 27, 2019 at 14:12 Date of Discharge 10/29/2019 Primary Care Physician: Jr Shields Collins Attending Physician: MICHAEL REYES DO Discharge Summary PROCEDURES PERFORMED DURING STAY: [None]. ADMITTING DIAGNOSES: 1. Syncope 2/2 vasovagal vs cardiogenic vs autonomic insufficiency 2. Parkinsons disease DISCHARGE DIAGNOSES: 1. Syncope 2/2 autonomic insufficiency 2. Parkinson's disease 3. ?Tachy/mecca syndrome COMPLICATIONS/CHIEF COMPLAINT: Syncope. HISTORY OF PRESENT ILLNESS: Patient is an 84 year old male who presented to the [facility] ER for a syncopal event. The patient has baseline Parkinsons dementia and th e HPI was partially obtained from the patients son over telephone. Per the patients son, the patient lives at home with his girlfriend. The patient can complete his ADLs but is apparently assisted by his girlfriend. Last Thursday the patients girlfriend was hospitalized for a urinary tract infection. Subsequently the patients son had noted that the patient was not eating as much as he normally does. He was noted to be more tired then normal and according to the son was weak. The patients sone noted that he had continued weakness for the past week leading up to today. The patients son had visited him and transitioned the patient to his chair. The patient was sitting in his chair when he suddenly "passed out". The patients son noted that this was a brief episode and lasted a few seconds. When the patient came too he was a little confused but quickly returned to his baseline. The patient had denied any chest pain or shortness of breath at the time. The patient subsequently came to the ER In the ER the patient was found to have an elevation in his creatinine. He was otherwise vitally stable. The patient received an EKG which was unrevealing. Hospitalist service was consulted and the patient was admitted for further evaluation and management HOSPITAL COURSE: Patient was admitted for full syncope workup, including echocardiogram, continuous telemetry and orthostatic vital signs. The patient was also placed on IVF. He was found to have BRAXTON, likely prerenal from dehydration. Telemetry was concerning for intermittent tachycardia in the 220s and bradycardia down to the 40s. There was thought that some of this may be from artifact as the patient is very tremulous from his Parkinson's disease. The patient was asymptomatic during these times and remained otherwise stable. He worked with PT/OT who recommended continued rehab, but family noted he has 24/7 care at home and wished to take him home. He was discharged home in stable state. DISCHARGE MEDICATIONS: Please see below. ALLERGIES: Please see below. PHYSICAL EXAMINATION ON DISCHARGE: VITAL SIGNS: Temperature 97.3, pulse 61, respiratory rate 14, blood pressure 138/66, pulse oximetry 97% on room air. GENERAL APPEARANCE: Awake, alert, and oriented. Appears in no acute distress. Sitting up at the bedside. HEENT: Atraumatic normocephalic. Eyes are nonicteric. Trachea is midline CARDIOVASCULAR: Regular rate and rhythm. 2/6 systolic ejection murmur. LUNGS: Clear vesicular breath sounds bilaterally with good respiratory effort. No wheezes, rhonchi, or rales ABDOMEN: Soft, nondistended. Nontender. No rebound tenderness or guarding. Normoactive bowel sounds throughout MUSCULOSKELETAL: 5/5 muscle strength testing in bilateral upper and lower extremities EXTREMITIES: No edema. Full and equal pulses bilaterally NEUROLOGICAL: No focal neurological deficits PSYCHIATRIC: Mood and affect appear appropriate LABORATORY DATA: Please see below. IMAGING: PORTABLE CHEST X-RAY: Single view. HISTORY: Syncope. COMPARISON CHEST X-RAY: September 18, 2019. FINDINGS: The lungs are symmetrically aerated and free of infiltrate. Pleural angles are sharp. Cardiomediastinal silhouette is unremarkable and unchanged. Pulmonary vasculature is not increased. Monitoring electrodes overlie the chest. IMPRESSION: No acute cardiopulmonary disease. PROGNOSIS: fair ACTIVITY: [As tolerated]. DIET: consistent carb, 2g sodium DISCHARGE PLAN: home DISPOSITION: . DISCHARGE INSTRUCTIONS: 1. Follow up with Cardiology and PCP within 14 days ITEMS TO FOLLOWUP ON ON OUTPATIENT: 1. Echocardiogram DISCHARGE CONDITION: [Stable]. TIME SPENT ON DISCHARGE: Greater than 40 minutes. Vital Signs/I&Os Vital Signs Date Time Temp Pulse Resp B/P (MAP) Pulse Ox O2 Delivery O2 Flow Rate FiO2 10/29/19 06:30 54 123/59 (80) 61 107/56 (73) 66 98/53 (68) 10/29/19 06:00 97.7 17 97 Room Air I&O- Last 24 Hours up to 6 AM 10/29/19 06:00 Intake Total 810 ml Output Total 1525 ml Balance -715 ml Laboratory Data Labs 24H Laboratory Tests 2 10/28/19 11:32: Bedside Glucose (Misc Panel) 156H 10/28/19 16:31: Bedside Glucose (Misc Panel) 136H 10/28/19 20:03: Bedside Glucose (Misc Panel) 177H 10/29/19 05:17: Nucleated Red Blood Cells % (auto) 0.0, Anion Gap 0L, Glomerular Filtration Rate > 60.0, Calcium Level 8.1L CBC/BMP Laboratory Tests 10/29/19 05:17 FSBS Laboratory Tests Test 10/28/19 11:32 10/28/19 16:31 10/28/19 20:03 Range/Units Bedside Glucose (Misc Panel) 156 136 177 83-110 MG/DL Microbiology Microbiology 10/27/19 Urine Culture - Final, Complete Discharge Medications Scheduled Aspirin (Aspirin EC) 81 Mg Tab, 81 MG PO QPM, (Reported) @ 1900 Bumetanide (Bumetanide) 1 Mg Tab, 2 MG PO DAILY, (Reported) @ 0700 Calcium Carbonate/Vitamin D3 (Calcium 600-Vit D3 200 Tablet) 1 Each Tablet, 1 TAB PO BID, (Reported) Carbidopa/Levodopa (Carbidopa-Levo ER 25-100 Tab) 1 Each Tablet.er, 1 TAB PO QHS, (Reported) Carbidopa/Levodopa (Carbidopa-Levodopa 25-100 Tab) 1 Each Tablet, 2.5 TAB PO TID, (Reported) Cyanocobalamin (Vitamin B-12) (Vitamin B-12) 5,000 Mcg Capsule, 5,000 MCG PO DAILY, (Reported) Docusate Sodium (Stool Softener) 50 Mg Capsule, 50 MG PO BID, (Reported) Donepezil HCl (Donepezil HCl) 10 Mg Tablet, 10 MG PO QHS, (Reported) Levothyroxine Sodium (Synthroid) 125 Mcg Tab, 125 MCG PO QAM, (Reported) Lutein (Lutein) 10 Mg Tab, 10 MG PO DAILY, (Reported) @ 1200 Magnesium Oxide (Magnesium Oxide) 400 Mg Tab, 400 MG PO BID, (Reported) @ 1200 and 2200 Memantine HCl (Memantine HCl) 10 Mg Tab, 10 MG PO BID, (Reported) @ 1200 and HS Metformin HCl (Metformin HCl) 500 Mg Tab, 500 MG PO BID, (Reported) Daily and @ 1900 Omeprazole (Omeprazole) 20 Mg Capsule.dr, 20 MG PO BID, (Reported) @ 0700 & HS Spironolactone (Spironolactone) 25 Mg Tablet, 12.5 MG PO DAILY, (Reported) @ 0700 Sulfamethoxazole/Trimethoprim (Sulfamethoxazole-Tmp Ds Tablet) 1 Each Tablet, 1 TAB PO BID, (Reported) Tamsulosin Hcl (Tamsulosin HCl) 0.4 Mg Capsule, 0.4 MG PO DAILY, (Reported) Ubidecarenone (Co Q-10) 10 Mg Cap, 10 MG PO QPM, (Reported) @ 1900 Allergies Coded Allergies: No Known Allergies (Unverified , 09/06/16) GME ATTESTATION GME ATTESTATION My faculty preceptor for this patient encounter was physically present during the encounter and was fully available. All aspects of the patient interview, examination, medical decision making process, and medical care plan development were reviewed and approved by the faculty preceptor. The faculty preceptor is aware and concurs with the plan as stated in the body of this note and will attest to such by his/her cosignature. ATTENDING NOTE I, Michael Reyes, have independently examined this patient and performed my own physical exam, as well as reviewed the documentation. I have discussed in detail with the resident / student the findings and plan of treatment as documented by the resident / student. I agree with their findings and treatment plan. ARIS CACERES MD Oct 29, 2019 10:31 MICHAEL REYES DO Nov 01, 2019 12:10
--- NOTE | 2019-10-29 12:55 | ECHO ---
DATE OF STUDY: 10/28/2019 REFERRING PHYSICIAN: Dr. Juan A Finley INDICATION: Syncope. HEIGHT: 175 cm WEIGHT: 77 kg 2D MEASUREMENTS: Ventricular septum: 0.92 cm Posterior wall: 1.07 cm Left ventricle diastole: 5.2 cm Aortic root: 3.3. Cm Left atrium: 4.0 cm DOPPLER MEASUREMENTS: Mild aortic regurgitation. No aortic stenosis. Aortic valve velocity: 201 cm/s LVOT velocity: 88.8 cm/s LVOT VTI: 24.2 cm No mitral regurgitation. No mitral stenosis. Mitral E velocity: 64.7 cm/s Mitral A velocity: 42.8 cm/s Mitral deceleration time: 313 ms Trace tricuspid regurgitation. Pulmonary artery acceleration time: 283 ms. No pulmonic regurgitation. MITRAL ANNULAR TISSUE DOPPLER: E prime lateral: 8.2 cm/s E prime septal 7.1 cm/s DESCRIPTION: Rhythm was sinus bradycardia. Image quality was fair. No pericardial effusion. This was a 2D, M mode, color flow Doppler and pulse wave Doppler examination and included mitral annular tissue Doppler. CONCLUSIONS: 1. Moderate aortic valve sclerosis of a three-cuspid aortic valve. Slight decreased mobility of the aortic cusps. No aortic stenosis. Mild aortic regurgitation. 2. Mild mitral annular calcification. No mitral regurgitation. 3. Normal left ventricle internal dimensions and wall thickness. Normal regional LV wall motion and wall thickening. Normal LV systolic function. LVEF 68% (3D). Normal LV diastolic function. 4. No pericardial effusion. 5. Otherwise normal appearing echocardiogram Doppler findings.
[2019-10-29] MEDS: MAGNESIUM OXIDE 400 MG TAB (MAG-OX) PO SCH (13:41)
== END 2019-10-29 14:04 | disposition home health service (06) ==
LOC: M ED 14:11 → M ED INP 14:12 → ENRESERVDT 18:36 → ENRESERVTM 18:36 → M MSPAV 19:16
PROVIDERS: ADMIT Internal Medicine; ATTEND Internal Medicine
DX: G90.9 Disorder of the autonomic nervous system, unspecified (principal); R55 Syncope and collapse; G31.83 Neurocognitive disorder with Lewy bodies; F02.80 Dementia in other diseases classified elsewhere, unspecified severity, without behavioral disturbance, psychotic disturbance, mood disturbance, and anxiety; N17.9 Acute kidney failure, unspecified; E86.0 Dehydration; R00.0 Tachycardia, unspecified; R00.1 Bradycardia, unspecified; R01.1 Cardiac murmur, unspecified; E11.9 Type 2 diabetes mellitus without complications; I50.9 Heart failure, unspecified; K21.9 Gastro-esophageal reflux disease without esophagitis; E03.9 Hypothyroidism, unspecified; Z79.899 Other long term (current) drug therapy; Z79.82 Long term (current) use of aspirin; Z79.2 Long term (current) use of antibiotics
CPT/HCPCS: 36415; 71045; 80048; 81001; 82550; 82553; 84443; 84484; 85025; 85027; 85610; 85730; 87086; 93005; 93041; 93306; 94760; 97530; 99285; G0378

== ENCOUNTER 2019-11-25 13:24 | Inpatient (IN) | payer MEDICARE, OTHER ==
[~2019-11-25] VITALS: Ht 175.3 cm; Wt 76.8 kg
[~2019-11-25 13:24] MED LIST changes: +SULF1TAB93 PO; +TAMS1CAP17 PO
[2019-11-25 14:04] LABS: BASO # 0.1 10^3/uL (0.0-0.2); BASO % 0.8 % (0.0-1.0); EOS # 0.4 10^3/uL (0.0-0.5); EOS % 4.9 % (0.0-3.0); HEMOGLOBIN 11.3 g/dl (13.5-17.5); LYMPH # 2.7 10^3/uL (1.5-5.0); MEAN CORPUSCULAR HEMOGLOBIN 27.6 pg (27.0-33.0); MEAN CORPUSCULAR HGB CONC 30.5 g/dl (32.0-36.5); MEAN CORPUSCULAR VOLUME 90.2 fl (80.0-96.0); MONO # 0.6 10^3/uL (0.0-0.8); MONO % 8.4 % (0.0-5.0); NEUTROPHILS # 3.9 10^3/uL (1.5-8.5); NEUTROPHILS % 50.6 % (36.0-66.0); PLATELET COUNT, AUTOMATED 281 10^3/uL (150-450); WHITE BLOOD COUNT 7.6 10^3/uL (4.0-10.0)
[2019-11-25] MEDS ORDERED: cefTRIAXone SOD 1 GM in D5W MINI-BAG PLUS 50 ML IV ONE (14:30)
[2019-11-25 14:40] LABS: ALBUMIN 3.2 GM/DL (3.2-5.2); ALT/SGPT 13 U/L (12-78); BILIRUBIN,DIRECT < 0.1 MG/DL (0.0-0.2); BILIRUBIN,TOTAL 0.3 MG/DL (0.2-1.0); BLOOD UREA NITROGEN 23 MG/DL (7-18); CALCIUM LEVEL 9.1 MG/DL (8.8-10.2); CARBON DIOXIDE LEVEL 34 MEQ/L (21-32); CHLORIDE LEVEL 102 MEQ/L (98-107); CK-MB VALUE MASS < 1.0 NG/ML (<3.6); CPK CREATINE PHOSPHOKINASE 28 U/L (39-308); CREATININE FOR GFR 1.28 MG/DL (0.70-1.30); ETHYL ALCOHOL (ETHANOL) < 0.003 % (0.000-0.010); GLOMERULAR FILTRATION RATE 57.1 (>35); GLUCOSE, FASTING 126 MG/DL (70-100); MAGNESIUM LEVEL 2.5 MG/DL (1.8-2.4); MB/CK RELATIVE INDEX 3.57 (< OR =4); PHOSPHORUS LEVEL 3.4 MG/DL (2.5-4.9); POTASSIUM SERUM 4.2 MEQ/L (3.5-5.1); SODIUM LEVEL 140 MEQ/L (136-145); TOTAL PROTEIN 6.3 GM/DL (6.4-8.2); TROPONIN I < 0.02 NG/ML (< 0.10)
[2019-11-25] MEDS ORDERED: MYRB25TA PO (14:41)
--- NOTE | 2019-11-25 15:42 | HPEPDOC ---
General Date of Admission 11/25/19 Date of Service: Nov 25, 2019 Chief Complaint The patient is a 84-year-old male admitted with a reason for visit of AMS. Source: EMS notes reviewed, Old records Exam Limitations: Clinical conditions Timing/Duration: 24 hours Severity: Moderate Associated Symptoms: Unobtainable History of Present Illness Patient is 84 years old male with past history of Parkinson dementia, diabetes mellitus type 2, CHF, hypothyroidism presented to the hospital with altered mental status. According to family for past few days patient increased confusion. In emergency room patient was very somnolent, bradycardic at the rate of 55. Blood work pertinent for mild elevation of TSH. Urine analysis showed pyuria. Patient has permanent Quiles catheter. EKG showed sinus bradycardia Home Medications Scheduled Aspirin (Aspirin EC) 81 Mg Tab, 81 MG PO DAILY, (Reported) lunch Bumetanide (Bumetanide) 1 Mg Tab, 2 MG PO QPM, (Reported) dinner Calcium Carbonate/Vitamin D3 (Calcium 600-Vit D3 200 Tablet) 1 Each Tablet, 1 TAB PO BID, (Reported) Carbidopa/Levodopa (Carbidopa-Levo ER 25-100 Tab) 1 Each Tablet.er, 1 TAB PO QHS, (Reported) Carbidopa/Levodopa (Carbidopa-Levodopa 25-100 Tab) 1 Each Tablet, 2.5 TAB PO TID, (Reported) Cyanocobalamin (Vitamin B-12) (Vitamin B-12) 5,000 Mcg Capsule, 5,000 MCG PO DAILY, (Reported) Donepezil HCl (Donepezil HCl) 10 Mg Tablet, 10 MG PO QHS, (Reported) Levothyroxine Sodium (Synthroid) 125 Mcg Tab, 125 MCG PO QAM, (Reported) Lutein (Lutein) 10 Mg Tab, 10 MG PO DAILY, (Reported) @ 1200 Magnesium Oxide (Magnesium Oxide) 400 Mg Tab, 400 MG PO BID, (Reported) @ 1200 and 2200 Memantine HCl (Memantine HCl) 10 Mg Tab, 10 MG PO BID, (Reported) @ 1200 and HS Metformin HCl (Metformin HCl) 500 Mg Tab, 500 MG PO BID, (Reported) Daily and @ 1900 Mirabegron (Myrbetriq) 25 Mg Tab.er.24h, 25 MG PO DAILY, (Reported) lunch Omeprazole (Omeprazole) 20 Mg Capsule.dr, 20 MG PO BID, (Reported) @ 0700 & HS Spironolactone (Spironolactone) 25 Mg Tablet, 12.5 MG PO DAILY, (Reported) noon Ubidecarenone (Co Q-10) 10 Mg Cap, 10 MG PO QPM, (Reported) @ 1900 Scheduled PRN Docusate Sodium (Stool Softener) 50 Mg Capsule, 50 MG PO BID PRN for C ONSTIPATION, (Reported) Allergies Coded Allergies: No Known Allergies (Unverified , 11/25/19) Past Medical History Medical History 1. Parkinsons Dementia 2. Diabetes Mellitus Type 2 3. Congestive Heart Failure 4. Hypothyroidism 5. GERD Surgical History 1. Cholecystectomy 2. Lithotripsy Social History * Smoker: Denies Alcohol: Denies Drugs: denies A-FIB/CHADSVASC A-FIB History Current/History of A-Fib/PAF?: No Current PO Anticoag Therapy: No Review of Systems Constitutional: Reports: Weakness, Fatigue; Denies: Chills Eyes: Denies: Pain ENT: Denies: Head Aches Skin: Denies: Rash Pulmonary: Denies: Dyspnea, Cough Cardiovascular: Denies: Chest Pain Gastrointestinal: Denies: Nausea Genitourinary: Reports: Dysuria Hematologic: Denies: Bruising, Bleeding Excessively Endocrine: Denies: Polydipsia Musculoskeletal: Reports: Other Symptoms; Denies: Neck Pain Neurological: Denies: Weakness, Numbness Psych: Reports: Memory Issues Physical Examination General Exam: Positive: No Acute Distress, Other (somnolent) Eye Exam: Positive: PERRLA ENT Exam: Positive: Atraumatic Neck Exam: Positive: Supple; Negative: JVD Chest Exam: Positive: Clear to auscultation Heart Exam: Positive: Rate Normal Telemetry: Positive: No significant arrhythmia Abdomen Exam: Positive: Normal bowel sounds Extremity Exam: Positive: Clubbing Skin Exam: Positive: Nl turgor and temperature Neuro Exam: Positive: Sensation Intact, Reflexes 2+ Psych Exam: Positive: Other (somnolent) Vital Signs Vital Signs Date Time Temp Pulse Resp B/P (MAP) Pulse Ox O2 Delivery O2 Flow Rate FiO2 11/25/19 15:02 54 134/60 (84) 98 Room Air 11/25/19 14:46 16 11/25/19 14:11 97.6 Laboratory Data Labs 24H Laboratory Tests 2 11/25/19 13:48: Immature Granulocyte % (Auto) 0.3, Neutrophils (%) (Auto) 50.6, Lymphocytes (%) (Auto) 35.0, Monocytes (%) (Auto) 8.4H, Eosinophils (%) (Auto) 4.9H, Basophils (%) (Auto) 0.8, Neutrophils # (Auto) 3.9, Lymphocytes # (Auto) 2.7, Monocytes # (Auto) 0.6, Eosinophils # (Auto) 0.4, Basophils # (Auto) 0.1, Nucleated Red Blood Cells % (auto) 0.0, Urine Color YELLOW, Urine Appearance CLOUDYH, Urine pH 7.0, Urine Specific [place] 1.014, Urine Protein NEGATIVE, Urine Glucose (UA) NEGATIVE, Urine Ketones NEGATIVE, Urine Blood NEGATIVE, Urine Nitrite POSITIVEH, Urine Bilirubin NEGATIVE, Urine Urobilinogen 0.2, Urine Leukocyte Esterase 3+H, Urine WBC (Auto) 133H, Urine RBC (Auto) 22H, Urine Hyaline Casts (Auto) 0, Urine Bacteria (Auto) 1+H, Urine Squamous Epithelial Cells 0, Urine Amorphous Sediment SMALLH, Urine Mucus (Auto) SMALL, Urine Sperm (Auto) , Anion Gap 4L, Glomerular Filtration Rate 57.1, Calcium Level 9.1, Phosphorus Level 3.4, Magnesium Level 2.5H, Total Bilirubin 0.3, Direct Bilirubin < 0.1, Aspartate Amino Transf (AST/SGOT) 9, Alanine Aminotransferase (ALT/SGPT) 13, Alkaline Phosphatase 84, Total Creatine Kinase 28L, Creatine Kinase MB < 1.0, Creatine Kinase MB Relative Index 3.57, Troponin I < 0.02, Total Protein 6.3L, Albumin 3.2, Albumin/Globulin Ratio 1.03, Thyroid Stimulating Hormone (TSH) 5.260H, Ethyl Alcohol Level < 0.003 CBC/BMP Laboratory Tests 11/25/19 13:48 Microbiology Microbiology 11/25/19 Urine Culture, Received Pending Assessment/Plan Patient is 84 years old male with past history of Parkinson dementia, diabetes mellitus type 2, CHF, hypothyroidism presented to the hospital with altered mental status. According to family for past few days patient increased confusion. In emergency room patient was very somnolent, bradycardic at the rate of 55. Blood work pertinent for mild elevation of TSH. Urine analysis showed p yuria. Patient has permanent Quiles catheter. Problems (1) Altered mental status Status: Acute Problem Text: Most likely secondary to UTI superimposed with Parkinson dementia Patient does not have fever, leukocytosis, dyspnea Urine analysis showed pyuria Ceftriaxone IV (2) UTI (urinary tract infection) Status: Acute Problem Text: See above (3) Generalized weakness Status: Acute Problem Text: Old age debility versus advanced Parkinson diseases PT/OT (4) Diabetes mellitus type 2 in nonobese Status: Chronic Problem Text: Insulin sliding scale Diabetes diet (5) CHF (congestive heart failure) Status: Chronic Problem Text: Diastolic CHF Not in acute exacerbation I's and O's Continue home cardioprotective medications (6) Parkinson disease Status: Chronic Problem Text: -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 -Continue home PD meds Plan / VTE VTE Prophylaxis Ordered?: Yes MICHAEL JEFFERSON DO Nov 25, 2019 15:42
[2019-11-25] MEDS ORDERED: DEXTROSE 50% 50 ML SYRINGE IV PRN (15:45)
[2019-11-25] MEDS ORDERED: GLUCOSE 4 GM CHEW TABLET PO PRN (15:45)
[2019-11-25] MEDS ORDERED: GLUCAGON FOR INJ 1 MG VIAL (J1610) SC PRN (15:45)
[2019-11-25] MEDS: SINEMET 25-100 MG TAB PO SCH ×2 (16:00→23:46)
[2019-11-25] MEDS: HumaLOG INSULIN (NovoLOG) PER UNIT SC SCH ×2 (17:30→21:00)
--- NOTE | 2019-11-25 17:37 | REP ---
CT BRAIN WITHOUT CONTRAST: CT brain performed without IV contrast. Coronal reconstruction images are performed. There is moderate atrophy. There is no midline shift or mass effect. Mild periventricular small vessel ischemic changes are stable. There is on acute hemorrhage or extra-axial fluid collection. No skull fracture is seen. There are mild vascular calcifications. IMPRESSION: Stable atrophy and periventricular small vessel ischemic changes. No acute intracranial hemorrhage, midline shift or mass effect. Electronically Signed by Jomar Curry MD 11/28/2019 10:49 A
--- NOTE | 2019-11-25 17:57 | REP ---
HISTORY: Altered mental status. COMPARISON: 10/27/2019 The technique utilized in obtaining the radiograph has magnified the cardiac silhouette and accentuated the interstitial markings. The superior mediastinal structures are midline. The cardiac silhouette is unremarkable in size, shape and position. The diaphragmatic surfaces of the lungs are regular and the costophrenic angles are clear. The pulmonary valles are clear. The imaged osseous structures are intact. IMPRESSION: There is no acute cardiopulmonary disease. No significant change from the prior exam. Electronically Signed by Neymar Torres DO 11/25/2019 07:59 P
[2019-11-25 18:13] VITALS: BP 126/78
[2019-11-25] MEDS: ASPIRIN 81 MG ENTERIC TAB PO SCH (19:07)
[2019-11-25 19:49] LABS: ABG BASE EXCESS 7.3 (-2.0-2.0); ABG HCO3 32.1 MEQ/L (22.0-26.0); ABG O2 SATURATION 99.7 % (95.0-99.0); ABG PARTIAL PRESSURE CO2 45.7 mmHg (35.0-45.0); ABG STANDARD HCO3 31.2 MEQ/L (22.0-26.0); ABG TOTAL CO2 33.5 MEQ/L (23.0-31.0); ABG pH (ARTERIAL) 7.464 UNITS (7.350-7.450)
[2019-11-25 22:00] VITALS: BP 150/67
[2019-11-25] MEDS ORDERED: PILL CUTTER 1 EACH XX PRN (22:30)
[2019-11-25] MEDS: MAGNESIUM OXIDE 400 MG TAB (MAG-OX) PO SCH (23:45)
[2019-11-25] MEDS: HEPARIN SOD (PORCINE) 5000UNITS/ML VIAL (J1644 PER 1000UNITS) SC SCH (23:45)
[2019-11-25] MEDS: SINEMET**CR** 25/100 TABCR PO SCH (23:46)
[2019-11-25] MEDS: BUMETANIDE 1 MG TAB PO SCH (23:46)
[2019-11-25] MEDS: OMEPRAZOLE 20 MG CAP PO SCH (23:46)
--- NOTE | 2019-11-26 00:55 | ECGEPIP ---
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
[2019-11-26 05:47] LABS: HEMATOCRIT 38.5 % (42.0-52.0); HEMOGLOBIN 12.3 g/dl (13.5-17.5); MEAN CORPUSCULAR HEMOGLOBIN 28.5 pg (27.0-33.0); MEAN CORPUSCULAR HGB CONC 31.9 g/dl (32.0-36.5); MEAN CORPUSCULAR VOLUME 89.1 fl (80.0-96.0); PLATELET COUNT, AUTOMATED 295 10^3/uL (150-450); RED BLOOD COUNT 4.32 10^6/uL (4.30-6.10); WHITE BLOOD COUNT 6.7 10^3/uL (4.0-10.0)
[2019-11-26] MEDS: LEVOTHYROXINE 125MCG TABLET (0.125MG) PO SCH (05:55)
[2019-11-26 06:00] VITALS: BP 139/68
[2019-11-26 06:15] LABS: BLOOD UREA NITROGEN 24 MG/DL (7-18); CALCIUM LEVEL 8.3 MG/DL (8.8-10.2); CARBON DIOXIDE LEVEL 30 MEQ/L (21-32); CHLORIDE LEVEL 103 MEQ/L (98-107); CREATININE FOR GFR 1.16 MG/DL (0.70-1.30); GLOMERULAR FILTRATION RATE > 60.0 (>35); GLUCOSE, FASTING 135 MG/DL (70-100); MAGNESIUM LEVEL 2.4 MG/DL (1.8-2.4); POTASSIUM SERUM 4.2 MEQ/L (3.5-5.1); SODIUM LEVEL 141 MEQ/L (136-145)
[2019-11-26] MEDS: OMEPRAZOLE 20 MG CAP PO SCH ×2 (08:45→20:41)
[2019-11-26] MEDS: SPIRONOLACTONE 12.5MG PER 1/2 TABLET PO SCH (08:45)
[2019-11-26] MEDS: ASPIRIN 81 MG ENTERIC TAB PO SCH (08:45)
[2019-11-26] MEDS: SINEMET 25-100 MG TAB PO SCH ×3 (08:45→20:41)
[2019-11-26] MEDS: MAGNESIUM OXIDE 400 MG TAB (MAG-OX) PO SCH ×2 (08:45→20:41)
[2019-11-26] MEDS: HEPARIN SOD (PORCINE) 5000UNITS/ML VIAL (J1644 PER 1000UNITS) SC SCH ×2 (08:47→20:41)
[2019-11-26] MEDS: FUROSEMIDE 20MG/2ML VIAL (J1940) IV SCH (08:48)
[2019-11-26] MEDS: HumaLOG INSULIN (NovoLOG) PER UNIT SC SCH ×4 (08:49→20:41)
--- NOTE | 2019-11-26 10:50 | IPNPDOC ---
Text Note Date of Service The patient was seen on 11/26/19. NOTE Subjective: Patient's mental status markedly improved, he follows command, he is able to answer the questions. He is alert, awake. He doesn't have any recollection about yesterday. Objective: GENERAL: awake, alert, NAD HEENT: NCAT, anicteric sclera, DALJIT NECK: supple, no JVD CARDIOVASCULAR EXAMINATION: NS1S2, regular rate/rhythm RESPIRATORY EXAMINATION: CTA b/l, no wheezes/rales/rhonchi ABDOMINAL EXAMINATION: positive bowel sounds x 4, NT EXTREMITIES: no cyanosis, clubbing, edema SKIN: warm, no rashes. NEUROLOGICAL EXAMINATION: AAO x 3, no motor/sensory deficits PSYCHIATRIC EXAMINATION: calm, normal affect Assessment/Plan Patient is 84 years old male with past history of Parkinson dementia, diabetes mellitus type 2, CHF, hypothyroidism presented to the hospital with altered mental status. According to family for past few days patient increased confusion. In emergency room patient was very somnolent, bradycardic at the rate of 55. Blood work pertinent for mild elevation of TSH. Urine analysis showed pyuria. Patient has permanent Quiles catheter. Problems (1) Altered mental status Resolved Most likely secondary to UTI superimposed with Parkinson dementia Patient does not have fever, leukocytosis, dyspnea Urine analysis showed pyuria. Await culture Ceftriaxone IV (2) UTI (urinary tract infection) See above (3) Generalized weakness Old age debility versus advanced Parkinson diseases PT/OT (4) Diabetes mellitus type 2 in nonobese Insulin sliding scale Diabetes diet (5) CHF (congestive heart failure) Diastolic CHF Not in acute exacerbation I's and O's Continue home cardioprotective medications (6) Parkinson disease -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 -Continue home PD meds Plan / VTE VTE Prophylaxis Ordered?: Yes VS,Fishbone, I+O VS, Fishbone, I+O Laboratory Tests 11/25/19 13:48 11/26/19 05:24 Vital Signs Date Time Temp Pulse Resp B/P (MAP) Pulse Ox O2 Delivery O2 Flow Rate FiO2 11/26/19 06:00 97.4 55 13 139/68 (91) 97 Nasal Cannula 1.0 I&O- Last 24 Hours up to 6 AM 11/26/19 06:00 Intake Total 350 ml Output Total 975 ml Balance -625 ml DROZHZHIN,MICHAEL DO Nov 26, 2019 10:50
[2019-11-26 14:00] VITALS: BP 104/55
--- NOTE | 2019-11-26 17:11 | ECGEPIP ---
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 No significant change from earlier the same day. Electronically Signed on 11-26-2019 17:10:31 EDT by Parminder Hernandez
[2019-11-26] MEDS ORDERED: cefTRIAXone SOD 1 GM in D5W MINI-BAG PLUS 50 ML IV SCH (18:00)
[2019-11-26] MEDS: SINEMET**CR** 25/100 TABCR PO SCH (20:41)
[2019-11-26] MEDS: BUMETANIDE 1 MG TAB PO SCH (20:41)
[2019-11-26 21:00] VITALS: O2SAT 98
[2019-11-26 22:00] VITALS: BP 130/64
[2019-11-27 05:57] LABS: HEMATOCRIT 36.9 % (42.0-52.0); HEMOGLOBIN 11.6 g/dl (13.5-17.5); MEAN CORPUSCULAR HEMOGLOBIN 27.9 pg (27.0-33.0); MEAN CORPUSCULAR HGB CONC 31.4 g/dl (32.0-36.5); MEAN CORPUSCULAR VOLUME 88.7 fl (80.0-96.0); PLATELET COUNT, AUTOMATED 260 10^3/uL (150-450); RED BLOOD COUNT 4.16 10^6/uL (4.30-6.10); WHITE BLOOD COUNT 6.5 10^3/uL (4.0-10.0)
[2019-11-27 06:00] VITALS: BP 136/77
[2019-11-27] MEDS: LEVOTHYROXINE 125MCG TABLET (0.125MG) PO SCH (06:11)
[2019-11-27 06:25] LABS: BLOOD UREA NITROGEN 31 MG/DL (7-18); CARBON DIOXIDE LEVEL 32 MEQ/L (21-32); CHLORIDE LEVEL 101 MEQ/L (98-107); CREATININE FOR GFR 1.13 MG/DL (0.70-1.30); GLOMERULAR FILTRATION RATE > 60.0 (>35); GLUCOSE, FASTING 163 MG/DL (70-100); POTASSIUM SERUM 3.9 MEQ/L (3.5-5.1); SODIUM LEVEL 138 MEQ/L (136-145)
[2019-11-27 08:00] VITALS: O2SAT 96
[2019-11-27] MEDS: ASPIRIN 81 MG ENTERIC TAB PO SCH (09:34)
[2019-11-27] MEDS: OMEPRAZOLE 20 MG CAP PO SCH (09:34)
[2019-11-27] MEDS: SINEMET 25-100 MG TAB PO SCH (09:34)
[2019-11-27] MEDS: MAGNESIUM OXIDE 400 MG TAB (MAG-OX) PO SCH (09:34)
[2019-11-27] MEDS: HumaLOG INSULIN (NovoLOG) PER UNIT SC SCH (09:35)
[2019-11-27] MEDS: HEPARIN SOD (PORCINE) 5000UNITS/ML VIAL (J1644 PER 1000UNITS) SC SCH (09:35)
[2019-11-27] MEDS: FUROSEMIDE 20MG/2ML VIAL (J1940) IV SCH (09:35)
[2019-11-27] MEDS: SPIRONOLACTONE 12.5MG PER 1/2 TABLET PO SCH (09:37)
[2019-11-27] MEDS ORDERED: LEVA1TAB2 PO (09:52)
--- NOTE | 2019-11-27 13:39 | DS.PDOC ---
Discharge Summary General Date of Admission Nov 25, 2019 at 15:23 Date of Discharge 11/27/19 Discharge Summary PROCEDURES PERFORMED DURING STAY: [None]. ADMITTING DIAGNOSES: Altered mental status UTI (urinary tract infection) Generalized weakness Diabetes mellitus type 2 in nonobese CHF (congestive heart failure) Parkinson disease DISCHARGE DIAGNOSES: Altered mental status UTI (urinary tract infection) Generalized weakness Diabetes mellitus type 2 in nonobese CHF (congestive heart failure) Parkinson disease COMPLICATIONS/CHIEF COMPLAINT: Altered Mental Status,Urinary Tract Infection. HISTORY OF PRESENT ILLNESS: Patient is 84 years old male with past history of Parkinson dementia, diabetes mellitus type 2, CHF, hypothyroidism presented to the hospital with altered mental status. According to family for past few days patient increased confusion. In emergency room patient was very somnolent, bradycardic at the rate of 55. Blood work pertinent for mild elevation of TSH. Urine analysis showed pyuria. Patient has permanent Quiles catheter. HOSPITAL COURSE: During hospital stay following issue addressed (1) Altered mental status Resolved after treatment with antibiotics Most likely secondary to UTI superimposed with Parkinson dementia Patient does not have fever, leukocytosis, dyspnea Urine analysis showed pyuria. Urine culture positive for Enterobacter (2) UTI (urinary tract infection) See above (3) Generalized weakness Old age debility versus advanced Parkinson diseases PT/OT (4) Diabetes mellitus type 2 in nonobese Insulin sliding scale Diabetes diet (5) CHF (congestive heart failure) Diastolic CHF Not in acute exacerbation I's and O's Continue home cardioprotective medications (6) Parkinson disease -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 -Continue home PD meds DISCHARGE MEDICATIONS: Please see below. ALLERGIES: Please see below. PHYSICAL EXAMINATION ON DISCHARGE: Objective: GENERAL: awake, alert, NAD HEENT: NCAT, anicteric sclera, DALJIT NECK: supple, no JVD CARDIOVASCULAR EXAMINATION: NS1S2, regular rate/rhythm RESPIRATORY EXAMINATION: CTA b/l, no wheezes/rales/rhonchi ABDOMINAL EXAMINATION: positive bowel sounds x 4, NT EXTREMITIES: no cyanosis, clubbing, edema SKIN: warm, no rashes. NEUROLOGICAL EXAMINATION: AAO x 3, no motor/sensory deficits PSYCHIATRIC EXAMINATION: calm, normal affect LABORATORY DATA: Please see below. IMAGING: HISTORY: Altered mental status. COMPARISON: 10/27/2019 The technique utilized in obtaining the radiograph has magnified the cardiac silhouette and accentuated the interstitial markings. The superior mediastinal structures are midline. The cardiac silhouette is unremarkable in size, shape and position. The diaphragmatic surfaces of the lungs are regular and the costophrenic angles are clear. The pulmonary valles are clear. The imaged osseous structures are intact. IMPRESSION: There is no acute cardiopulmonary disease. No significant change from the prior exam. Electronically Signed by Neymar Torres DO 11/25/2019 07:59 P DD: Neymar Torres MD, DO 11/25/19 1409 DT: BENJAMÍN 11/25/191756 DS: ROME 11/25/19195811/25/191958 PROGNOSIS: Fair ACTIVITY: [As tolerated]. DIET: Cardiac DISPOSITION: Home, Self-Care. DISCHARGE INSTRUCTIONS: Continue levofloxacin for 7 days DISCHARGE CONDITION: [Stable]. TIME SPENT ON DISCHARGE: Greater than 20 minutes. Vital Signs/I&Os Vital Signs Date Time Temp Pulse Resp B/P (MAP) Pulse Ox O2 Delivery O2 Flow Rate FiO2 11/27/19 08:00 96 Room Air 11/27/19 06:00 97.1 55 18 136/77 (96) 11/26/19 06:00 1.0 I&O- Last 24 Hours up to 6 AM 11/27/19 06:00 Intake Total 590 ml Output Total 950 ml Balance -360 ml Laboratory Data Labs 24H Laboratory Tests 2 11/26/19 16:24: Bedside Glucose (Misc Panel) 134H 11/26/19 20:18: Bedside Glucose (Misc Panel) 184H 11/27/19 05:26: Nucleated Red Blood Cells % (auto) 0.0, Anion Gap 5L, Glomerular Filtration Rate > 60.0, Calcium Level 9.0 CBC/BMP Laboratory Tests 11/27/19 05:26 FSBS Laboratory Tests Test 11/26/19 16:24 11/26/19 20:18 Range/Units Bedside Glucose (Misc Panel) 134 184 83-110 MG/DL Microbiology Microbiology 11/25/19 Urine Culture - Final, Complete Enterobacter Cloacae Complex Discharge Medications Scheduled Aspirin (Aspirin EC) 81 Mg Tab, 81 MG PO DAILY, (Reported) lunch Bumetanide (Bumetanide) 1 Mg Tab, 2 MG PO QPM, (Reported) dinner Calcium Carbonate/Vitamin D3 (Calcium 600-Vit D3 200 Tablet) 1 Each Tablet, 1 TAB PO BID, (Reported) Carbidopa/Levodopa (Carbidopa-Levo ER 25-100 Tab) 1 Each Tablet.er, 1 TAB PO QHS, (Reported) Carbidopa/Levodopa (Carbidopa-Levodopa 25-100 Tab) 1 Each Tablet, 2.5 TAB PO TID, (Reported) Cyanocobalamin (Vitamin B-12) (Vitamin B-12) 5,000 Mcg Capsule, 5,000 MCG PO DAILY, (Reported) Donepezil HCl (Donepezil HCl) 10 Mg Tablet, 10 MG PO QHS, (Reported) Levofloxacin (Levaquin) 500 Mg Tablet, 500 MG PO DAILY@06 Levothyroxine Sodium (Synthroid) 125 Mcg Tab, 125 MCG PO QAM, (Reported) Lutein (Lutein) 10 Mg Tab, 10 MG PO DAILY, (Reported) @ 1200 Magnesium Oxide (Magnesium Oxide) 400 Mg Tab, 400 MG PO BID, (Reported) @ 1200 and 2200 Memantine HCl (Memantine HCl) 10 Mg Tab, 10 MG PO BID, (Reported) @ 1200 and HS Metformin HCl (Metformin HCl) 500 Mg Tab, 500 MG PO BID, (Reported) Daily and @ 1900 Mirabegron (Myrbetriq) 25 Mg Tab.er.24h, 25 MG PO DAILY, (Reported) lunch Omeprazole (Omeprazole) 20 Mg Capsule.dr, 20 MG PO BID, (Reported) @ 0700 & HS Spironolactone (Spironolactone) 25 Mg Tablet, 12.5 MG PO DAILY, (Reported) noon Ubidecarenone (Co Q-10) 10 Mg Cap, 10 MG PO QPM, (Reported) @ 1900 Scheduled PRN Docusate Sodium (Stool Softener) 50 Mg Capsule, 50 MG PO BID PRN for CONSTIPATION, (Reported) Allergies Coded Allergies: No Known Allergies (Unverified , 11/25/19) MICHAEL JEFFERSON DO Nov 27, 2019 13:39
[2019-12-07] MEDS ORDERED: LevoFLOXacin 500 MG TABLET PO SCH (09:00)
[2020-11-26] MEDS ORDERED: LevoFLOXacin 500 MG TABLET PO SCH (06:00)
== END 2019-11-27 11:11 | disposition home health service (06) | DRG 690 ==
LOC: M ED 13:24 → EDBD 13:24 → M ED INP 15:23 → ENRESERVDT 15:36 → ENRESERVTM 15:36 → M MSPAV 18:00
PROVIDERS: ADMIT Internal Medicine; ATTEND Internal Medicine
DX: N39.0 Urinary tract infection, site not specified (principal); I50.30 Unspecified diastolic (congestive) heart failure; E11.9 Type 2 diabetes mellitus without complications; G20 Parkinson's disease; F02.80 Dementia in other diseases classified elsewhere, unspecified severity, without behavioral disturbance, psychotic disturbance, mood disturbance, and anxiety; E03.9 Hypothyroidism, unspecified; Z79.82 Long term (current) use of aspirin; Z79.899 Other long term (current) drug therapy; K21.9 Gastro-esophageal reflux disease without esophagitis

== ENCOUNTER → 2019-12-10 | Outpatient (REF) | payer MEDICARE, OTHER ==
[~2019-12-10] MED LIST changes: +LEVA1TAB2 PO
[2019-12-11 07:06] LABS: APPEARANCE, URINE CLEAR (CLEAR); COLOR, URINE STRAW (YELLOW)
[2019-12-11 07:07] LABS: BILIRUBIN, URINE AUTO NEGATIVE (NEGATIVE); BLOOD, URINE BLOOD 1+ (NEGATIVE); GLUCOSE, URINE (UA) AUTO NEGATIVE (NEGATIVE); KETONE, URINE AUTO NEGATIVE (NEGATIVE); LEUKOCYTE ESTERASE, URINE AUTO NEGATIVE (NEGATIVE); NITRITE, URINE AUTO NEGATIVE (NEGATIVE); PROTEIN, URINE AUTO 1+ mg/dL (NEGATIVE); RBC, URINE AUTO 10 /HPF (0-3); SPECIFIC GRAVITY URINE AUTO 1.008 (1.002-1.035); UROBILINOGEN, URINE AUTO 0.2 mg/dL (0.0-2.0); WBC, URINE AUTO 4 /HPF (0-3)
[2019-12-11 07:08] LABS: BACTERIA, URINE AUTO NEGATIVE (NEGATIVE); SQUAMOUS EPITHELIAL CELL UR AU 0 /HPF (0-6)
== END ==
LOC: M LAB REF 16:28
PROVIDERS: ATTEND Internal Medicine
DX: N39.0 Urinary tract infection, site not specified (principal)

== ENCOUNTER → 2020-04-30 | Outpatient (REF) | payer MEDICARE, OTHER ==
[~2020-04-30] MED LIST changes: +ASPI-546 PO; -ASPI1TAB15 PO
== END ==
LOC: M LAB REF 16:16
PROVIDERS: ATTEND Physician Assistant Medical
DX: N39.0 Urinary tract infection, site not specified (principal)

== ENCOUNTER 2020-07-10 12:13 | Inpatient (IN) | payer MEDICARE, OTHER ==
[~2020-07-10] VITALS: Ht 175.3 cm; Wt 79.2 kg
[2020-07-10 13:38] LABS: BASO % 0.7 % (0.0-1.0); EOS # 0.5 10^3/uL (0.0-0.5); EOS % 8.2 % (0.0-3.0); HEMATOCRIT 36.7 % (42.0-52.0); HEMOGLOBIN 11.3 g/dl (13.5-17.5); LYMPH # 0.7 10^3/uL (1.5-5.0); LYMPH % 12.5 % (24.0-44.0); MEAN CORPUSCULAR HEMOGLOBIN 27.6 pg (27.0-33.0); MEAN CORPUSCULAR HGB CONC 30.8 g/dl (32.0-36.5); MEAN CORPUSCULAR VOLUME 89.7 fl (80.0-96.0); MONO # 0.4 10^3/uL (0.0-0.8); MONO % 6.6 % (0.0-5.0); NEUTROPHILS % 71.5 % (36.0-66.0); PLATELET COUNT, AUTOMATED 191 10^3/uL (150-450); RED BLOOD COUNT 4.09 10^6/uL (4.30-6.10); WHITE BLOOD COUNT 5.6 10^3/uL (4.0-10.0)
--- NOTE | 2020-07-10 14:11 | REP ---
INDICATION: AMS; abdominal distention. COMPARISON: Comparison chest x-ray November 25, 2019.. TECHNIQUE: Supine view of the chest and abdomen complimented bike cross-table lateral views of the abdomen. Four views in total. FINDINGS: Chest radiograph shows no evidence of infiltrate or effusion. Monitoring electrodes and oxygen tubing are seen. Clips are noted right upper quadrant of the abdomen. Heart is not felt to be enlarged. Supine view of the abdomen and cross-table lateral views show a moderate amount of formed stool distending the rectum. There is formed stool scattered in the transverse and right colon but no evidence of colonic distention apart from the rectum. Psoas margins and flank stripes are intact. No small bowel dilation is seen. There is evidence of Quiles catheter. Vascular calcification is noted. There is no evidence of free intraperitoneal air on cross-table lateral views. There are degenerative changes in the lumbar spine. There is a metallic density in the central pelvis on today's cross-table lateral and frontal radiographs. This measures 8 mm in greatest diameter. It was not present on previous CT study from November 04, 2019. This may be opaque ingested material such as dental amalgam. IMPRESSION: Rectum is filled with formed stool question mild obstipation. No large or small bowel dilation seen apart from this. There is a metallic density in the central pelvis. aaa this may be opaque ingested material. It was not visible at the time of prior CT study November 04, 2019. There appears to be a Quiles catheter.. <Electronically signed by Stanislaw Jernigan > 07/10/20 2244
[2020-07-10 14:16] LABS: ALBUMIN 2.9 GM/DL (3.2-5.2); ALT/SGPT 21 U/L (12-78); BILIRUBIN,DIRECT 0.1 MG/DL (0.0-0.2); BILIRUBIN,TOTAL 0.4 MG/DL (0.2-1.0); BLOOD UREA NITROGEN 18 MG/DL (7-18); CALCIUM LEVEL 9.1 MG/DL (8.8-10.2); CARBON DIOXIDE LEVEL 31 MEQ/L (21-32); CHLORIDE LEVEL 99 MEQ/L (98-107); CK-MB VALUE MASS < 1.0 NG/ML (<3.6); CPK CREATINE PHOSPHOKINASE 26 U/L (39-308); CREATININE FOR GFR 1.37 MG/DL (0.70-1.30); GLOMERULAR FILTRATION RATE 52.7 (>35); GLUCOSE, FASTING 219 MG/DL (70-100); MB/CK RELATIVE INDEX 3.85 (< OR =4); POTASSIUM SERUM 3.7 MEQ/L (3.5-5.1); SODIUM LEVEL 134 MEQ/L (136-145); TOTAL PROTEIN 7.1 GM/DL (6.4-8.2); TROPONIN I < 0.02 NG/ML (< 0.10)
[2020-07-10] MEDS ORDERED: CIPROFLOXACIN 400 MG in IV 1 EA IV ONE (14:30)
[2020-07-10] MEDS ORDERED: ROPI0.253 PO (14:55)
[2020-07-10] MEDS ORDERED: NITR100C2 PO (14:55)
[2020-07-10] MEDS ORDERED: NS 2,000 ML in IV 1 EA IV ONE (15:00)
--- NOTE | 2020-07-10 15:36 | HPEPDOC ---
[facility] Medical History & Physical Date of Admission Jul 10, 2020 Date of Service: Jul 10, 2020 History and Physical CHIEF COMPLAINT: Weakness HISTORY OF PRESENT ILLNESS: 85M PMHx dementia, DM2, CHF, hypothyroid, is brought in by son due to increased confusion and weakness at home over the past week. History is limited as son is no longer in the hospital and I was unable to reach him by phone. The patient has very limited communication and appears very weak and can only nod yes/no to very basic questions. He denies being in any pain but is unable to answer any questions beyond this. Medical management will be based on chart review as well as review of laboratory and imaging studies until more history can be obtained from family. Patient is presumed to have acute encephalopathy and weakness secondary developing a UTI. Patient has a permanent Quiles catheter and the son informed ED staff when he was present that they last changed to 2 out weeks ago and at that time they noticed a little more bleeding than usual usually happens when the patient has a UTI. Patient was last admitted 11/25/2019 for similar presentation also found to have a UTI. PAST MEDICAL HISTORY: From chart review 1. Parkinsons Dementia 2. Diabetes Mellitus Type 2 3. Congestive Heart Failure 4. Hypothyroidism 5. GERD PAST SURGICAL HISTORY: From chart review 1. Cholecystectomy 2. Lithotripsy SOCIAL HISTORY: From chart review no alcohol use no tobacco use no illicit drug use FAMILY HISTORY: Reviewed and noncontributory ALLERGIES: Please see below. REVIEW OF SYSTEMS: Unable to obtain review of systems due to patient's mental status HOME MEDICATIONS: Please see below. PHYSICAL EXAMINATION: Constitutional: sleepy, old, and weak appearing but not in distress. ENT: Sclera are clear. Mucosa is dry. Respiratory: Lungs CTA bilaterally. No respiratory distress. No use of accessory muscles. Cardiovascular: RRR S1 and S2 are normal. No JVD Gastrointestinal: Abdomen is soft, non distended, non tender, BS present. Quiles in place. Musculoskeletal: No LE edema. Neurologic: unable to assess due to patients mental status Mental Status: Able to nod yes/no to very basic questions. Skin: Warm, dry, scattered petechia on lower extremities. LABORATORY DATA: See below. IMAGING: MICROBIOLOGY: Please see below. ASSESSMENT/PLAN 85M PMHx dementia, DM2, CHF, hypothyroid, is brought in by son due to increased confusion and weakness at home over the past week. Admitted for acute encephalopathy and weakness presumed to be secondary to UTI. # Acute encephalopathy: Presumed to be secondary to UTI with underlying Jimmy on dementia. IV ceftx. # UTI: UA dirty from port (not bag) with leuk esterase and nitrite. IV ceftri axone. IV fluids. Fu UCx, BCx. Prio sensitivities grew Enterobacter. Afebrile. No leukocytosis. # Elevated lactate: 3.1 on admit. Clinically on skin drier side. Likely 2/2 dehydration and UTI. IVFs. IV ceftriaxone. Trend lactate. # Generalized weakness: likely from the UTI as well as old age debility and advanced Parkinson disease. IVFs. PT/OT. # BRAXTON: Cr 1.37 on admission. IVFs. Avoid nephrotoxins. Trend BMP. # DM: ISS. Frequent Accu-Cheks. Hypoglycemic precautions. Carbohydrate consistent diet. # HFpEF: euvolemic/a little dry on exam. Continue home meds. # Parkinson disease: with associated Parkinson dementia. Continue home meds. Bowel regiment. Hold ropinirole which can cause confusion as a s/e in small subset of pts. Also hold carbidopa/levodopa which can precipitate disorientation and confusion in some patients. # Hypothyroidism: continue levothyroxine. # GERD: PPI # DVT prophylaxis: Heparin Julian Larson [phone] A [facility] Hospitalist Vital Signs Vital Signs Date Time Temp Pulse Resp B/P (MAP) Pulse Ox O2 Delivery O2 Flow Rate FiO2 07/10/20 12:17 98.7 66 18 141/66 97 Laboratory Data Labs 24H Laboratory Tests 2 07/10/20 12:49: Urine Color YELLOW, Urine Appearance CLOUDYH, Urine pH 5.0, Urine Specific [place] 1.023, Urine Protein 2+H, Urine Glucose (UA) 2+H, Urine Ketones TRACEH, Urine Blood 3+H, Urine Nitrite POSITIVEH, Urine Bilirubin NEGATIVE, Urine Urob ilinogen 0.2, Urine Leukocyte Esterase 3+H, Urine WBC (Auto) TNTCH, Urine RBC (Auto) TNTCH, Urine Hyaline Casts (Auto) 6, Urine Bacteria (Auto) 3+H, Urine Squamous Epithelial Cells 1, Urine Transitional Epithelial Cells 1, Urine Mucus (Auto) MODERATE, Urine Sperm (Auto) 07/10/20 13:22: Immature Granulocyte % (Auto) 0.5, Neutrophils (%) (Auto) 71.5H, Lymphocytes (%) (Auto) 12.5L, Monocytes (%) (Auto) 6.6H, Eosinophils (%) (Auto) 8.2H, Basophils (%) (Auto) 0.7, Neutrophils # (Auto) 4.0, Lymphocytes # (Auto) 0.7L, Monocytes # (Auto) 0.4, Eosinophils # (Auto) 0.5, Basophils # (Auto) 0.0, Nucleated Red Blood Cells % (auto) 0.0, Anion Gap 4L, Glomerular Filtration Rate 52.7, Lactic Acid Level 3.1*H, Calcium Level 9.1, Total Bilirubin 0.4, Direct Bilirubin 0.1, Aspartate Amino Transf (AST/SGOT) 165H, Alanine Aminotransferase (ALT/SGPT) 21, Alkaline Phosphatase 193H, Total Creatine Kinase 26L, Creatine Kinase MB < 1.0, Creatine Kinase MB Relative Index 3.85, Troponin I < 0.02, Total Protein 7.1, Albumin 2.9L, Albumin/Globulin Ratio 0.7, Thyroid Stimulating Hormone (TSH) 2.320 CBC/BMP Laboratory Tests 07/10/20 13:22 Microbiology Microbiology 07/10/20 Blood Culture, Received Pending 07/10/20 Blood Culture, Received Pending 07/10/20 Urine Culture, Received Pending Home Medications Scheduled Aspirin (Aspirin EC) 81 Mg Tab, 81 MG PO DAILY @ NOON Bumetanide (Bumetanide) 1 Mg Tab, 1 MG PO BID NOON AND BEDTIME Calcium Carbonate/Vitamin D3 (Calcium 600-Vit D3 200 Tablet) 1 Each Tablet, 1 TAB PO BID Carbidopa/Levodopa (Carbidopa-Levo ER 25-100 Tab) 1 Each Tablet.er, 1 TAB PO QHS Carbidopa/Levodopa (Carbidopa-Levodopa 25-100 Tab) 1 Each Tablet, 2.5 TAB PO TID Cyanocobalamin (Vitamin B-12) (Vitamin B-12) 5,000 Mcg Capsule, 5,000 MCG PO DAILY @ NOON Donepezil HCl (Donepezil HCl) 10 Mg Tablet, 10 MG PO QHS Levothyroxine Sodium (Synthroid) 125 Mcg Tab, 125 MCG PO QAM Lutein (Lutein) 10 Mg Tab, 10 MG PO DAILY @ 1200 Magnesium Oxide (Magnesium Oxide) 400 Mg Tab, 400 MG PO BID @ 1200 and 2200 Memantine HCl (Memantine HCl) 10 Mg Tab, 10 MG PO BID @ 1200 and HS Metformin HCl (Metformin HCl) 500 Mg Tab, 500 MG PO BID Daily and @ 1900 Mirabegron (Myrbetriq) 25 Mg Tab.er.24h, 25 MG PO DAILY @ NOON Nitrofurantoin Monohyd/M-Cryst (Nitrofurantoin Gilliam-Mcr 100 mg) 100 Mg Capsule, 100 MG PO BID FILLED 07/04/20 FOR 7 DAYS Omeprazole (Omeprazole) 20 Mg Capsule.dr, 20 MG PO BID @ 0700 & HS Ropinirole HCl (Ropinirole HCl) 0.25 Mg Tablet, 0.5 MG PO QHS Spironolactone (Spironolactone) 25 Mg Tablet, 12.5 MG PO DAILY @ NOON Ubidecarenone (Co Q-10) 10 Mg Cap, 10 MG PO QPM @ 1900 Scheduled PRN Docusate Sodium (Stool Softener) 50 Mg Capsule, 50 MG PO BID PRN for CONSTIPATION Allergies Coded Allergies: No Known Allergies (Unverified , 11/25/19) A-FIB/CHADSVASC A-FIB History Current/History of A-Fib/PAF?: No TOM STANLEY MD Jul 10, 2020 15:28
[2020-07-10] MEDS ORDERED: DEXTROSE 50% 50 ML SYRINGE IV PRN (16:00)
[2020-07-10] MEDS ORDERED: MAALOX 30 ML SUSP *UDC PO PRN (16:00)
[2020-07-10] MEDS ORDERED: GLUCAGON INJ 1MG VIAL SC PRN (16:00)
[2020-07-10] MEDS ORDERED: GLUCOSE 4GM CHEW TABLET PO PRN (16:00)
[2020-07-10] MEDS ORDERED: MOM 30ML SUSPENSION UDC PO PRN (16:00)
[2020-07-10] MEDS ORDERED: ACETAMINOPHEN TAB 650MG DOSE (2X325MG) PO PRN (16:00)
--- NOTE | 2020-07-10 17:09 | ECGEPIP ---
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
[2020-07-10 20:30] VITALS: BP 137/99
[2020-07-10] MEDS: HumaLOG INSULIN (NovoLOG) PER UNIT SC SCH (21:31)
[2020-07-10] MEDS: HEPARIN SOD (PORCINE) 5000UNITS/ML 1ML VIAL/SYRINGE SC SCH (21:31)
[2020-07-10] MEDS ORDERED: NS 1,000 ML IV ONE (21:45)
[2020-07-10] MEDS: NS 1,000 ML IV SCH (22:01)
[2020-07-10] MEDS: cefTRIAXone SOD 1 GM in D5W MINI-BAG PLUS 50 ML IV SCH (22:01)
[2020-07-10] MEDS: OMEPRAZOLE 20 MG CAP PO SCH (22:02)
[2020-07-10] MEDS: BUMETANIDE 1 MG TAB PO SCH (22:02)
[2020-07-10] MEDS: DOCUSATE SODIUM 100MG CAPSULE PO SCH (22:03)
[2020-07-10] MEDS: MAGNESIUM OXIDE 400 MG TAB (MAG-OX) PO SCH (22:03)
[2020-07-11] VITALS: BP 141/68
[2020-07-11] MEDS: HEPARIN SOD (PORCINE) 5000UNITS/ML 1ML VIAL/SYRINGE SC SCH ×4 (00:24→23:50)
[2020-07-11] MEDS: HumaLOG INSULIN (NovoLOG) PER UNIT SC SCH ×6 (00:25→23:50)
[2020-07-11 04:00] VITALS: BP 128/60
[2020-07-11 05:54] LABS: HEMATOCRIT 31.8 % (42.0-52.0); MEAN CORPUSCULAR HEMOGLOBIN 27.8 pg (27.0-33.0); MEAN CORPUSCULAR HGB CONC 31.4 g/dl (32.0-36.5); MEAN CORPUSCULAR VOLUME 88.3 fl (80.0-96.0); PLATELET COUNT, AUTOMATED 173 10^3/uL (150-450); WHITE BLOOD COUNT 5.8 10^3/uL (4.0-10.0)
[2020-07-11 06:23] LABS: BLOOD UREA NITROGEN 16 MG/DL (7-18); CALCIUM LEVEL 7.9 MG/DL (8.8-10.2); CARBON DIOXIDE LEVEL 26 MEQ/L (21-32); CHLORIDE LEVEL 107 MEQ/L (98-107); CREATININE FOR GFR 1.15 MG/DL (0.70-1.30); GLOMERULAR FILTRATION RATE > 60.0 (>35); GLUCOSE, FASTING 177 MG/DL (70-100); POTASSIUM SERUM 3.7 MEQ/L (3.5-5.1); SODIUM LEVEL 139 MEQ/L (136-145)
[2020-07-11] MEDS: LEVOTHYROXINE 125MCG TABLET (0.125MG) PO SCH (06:23)
[2020-07-11 06:32] LABS: BASOPHILS 1 % (0-1); EOSINOPHILS 9 % (0-3); LYMPHOCYTES 17 % (16-44); NEUTROPHILS 73 % (28-66); PLATELET ESTIMATE NORMAL (NORMAL)
[2020-07-11 08:00] VITALS: BP 140/64
[2020-07-11] MEDS: OMEPRAZOLE 20 MG CAP PO SCH ×2 (08:52→20:36)
[2020-07-11] MEDS: ASPIRIN 81 MG ENTERIC TAB PO SCH (08:52)
[2020-07-11] MEDS: SPIRONOLACTONE 25 MG TAB PO SCH (08:52)
[2020-07-11] MEDS: BUMETANIDE 1 MG TAB PO SCH ×2 (08:52→20:37)
[2020-07-11] MEDS: MAGNESIUM OXIDE 400 MG TAB (MAG-OX) PO SCH ×2 (08:53→20:37)
[2020-07-11] MEDS: DOCUSATE SODIUM 100MG CAPSULE PO SCH ×2 (08:53→20:36)
[2020-07-11] MEDS: NS 1,000 ML IV SCH ×2 (12:08→23:49)
[2020-07-11 16:00] VITALS: BP 124/58
--- NOTE | 2020-07-11 19:07 | IPNPDOC ---
Text Note Date of Service The patient was seen on 07/11/20. NOTE Subjective: Patient was seen and examined this morning at bedside. He was more awake today vs yesterday and appeared less weak. Was able to answer a few more questions than yesterday but overall still appears weak. Nurse reports no overnight events. Patient not complaining of pain at this time. Denies SOB or CP. Objective: Constitutional: sleepy, old, and weak appearing but not in distress. ENT: Sclera are clear. Mucosa is dry. Respiratory: Lungs CTA bilaterally. No respiratory distress. No use of accessory muscles. Cardiovascular: RRR S1 and S2 are normal. No JVD Gastrointestinal: Abdomen is soft, non distended, non tender, BS present. Ernst in place. Musculoskeletal: No LE edema. Neurologic: No focal neurologic deficits Mental Status: Able to nod yes/no to very basic questions. Skin: Warm, dry, scattered petechia on lower extremities improved vs yesterday. Assessment/Plan: 85M PMHx dementia, DM2, CHF, hypothyroid, is brought in by son due to increased confusion and weakness at home over the past week. Admitted for acute encephalopathy and weakness presumed to be secondary to UTI. # Acute encephalopathy: Presumed to be secondary to UTI with underlying Parkinson dementia. IV ceftx. # Chronic indwelling ernst catheter associated UTI: UA dirty from port (not bag) with leuk esterase and nitrite. IV ceftriaxone. IV fluids. Fu UCx, BCx. Prior sensitivities grew Enterobacter. Afebrile. No leukocytosis. # Lactic acidosis: 3.1 on admit. Clinically on atmospheric drier tender side. Likely 2/2 dehydration and UTI. IVFs. IV ceftriaxone. Resolved with IVFs. # Generalized weakness: likely from the UTI as well as old age debility and advanced Parkinson disease. IVFs. PT/OT. # BRAXTON: Cr 1.37 on admission. IVFs. Avoid nephrotoxins. Resolved with IVFs. # DM: ISS. Frequent Accu-Cheks. Hypoglycemic precautions. Carbohydrate consistent diet. # HFpEF: euvolemic on exam. Continue home meds. # Parkinson disease: with associated Parkinson dementia. Continue home meds. Bowel regiment. Hold ropinirole which can cause confusion as a s/e in small subset of pts. Also hold carbidopa/levodopa which can precipitate disorientation and confusion in some patients. # Hypothyroidism: continue levothyroxine. # GERD: PPI # DVT prophylaxis: Heparin Julian Larson [phone] A [place] Hospitalist VSSvitlana I+O VSSvitlana I+O Laboratory Tests 07/11/20 05:24 07/11/20 05:25 Vital Signs Date Time Temp Pulse Resp B/P (MAP) Pulse Ox O2 Delivery O2 Flow Rate FiO2 07/11/20 16:00 97.6 66 16 124/58 (80) 96 Room Air I&O- Last 24 Hours up to 6 AM 07/11/20 06:00 Intake Total 1200 ml Output Total 1425 ml Balance -225 ml TOM STANLEY MD Jul 11, 2020 19:07
[2020-07-11 20:00] VITALS: BP 132/63
[2020-07-11] MEDS: cefTRIAXone SOD 1 GM in D5W MINI-BAG PLUS 50 ML IV SCH (20:36)
[2020-07-12] VITALS: BP 134/62
[2020-07-12 04:00] VITALS: BP 146/70
[2020-07-12 05:11] LABS: BASO % 0.7 % (0.0-1.0); EOS # 0.4 10^3/uL (0.0-0.5); EOS % 7.5 % (0.0-3.0); HEMATOCRIT 31.5 % (42.0-52.0); HEMOGLOBIN 9.7 g/dl (13.5-17.5); LYMPH # 1.3 10^3/uL (1.5-5.0); LYMPH % 24.4 % (24.0-44.0); MEAN CORPUSCULAR HEMOGLOBIN 27.3 pg (27.0-33.0); MEAN CORPUSCULAR HGB CONC 30.8 g/dl (32.0-36.5); MEAN CORPUSCULAR VOLUME 88.7 fl (80.0-96.0); MONO # 0.3 10^3/uL (0.0-0.8); MONO % 5.1 % (0.0-5.0); NEUTROPHILS # 3.4 10^3/uL (1.5-8.5); NEUTROPHILS % 61.9 % (36.0-66.0); PLATELET COUNT, AUTOMATED 174 10^3/uL (150-450); RED BLOOD COUNT 3.55 10^6/uL (4.30-6.10); WHITE BLOOD COUNT 5.5 10^3/uL (4.0-10.0)
[2020-07-12 05:33] LABS: BLOOD UREA NITROGEN 14 MG/DL (7-18); CALCIUM LEVEL 7.7 MG/DL (8.8-10.2); CARBON DIOXIDE LEVEL 28 MEQ/L (21-32); CHLORIDE LEVEL 107 MEQ/L (98-107); CREATININE FOR GFR 1.03 MG/DL (0.70-1.30); GLOMERULAR FILTRATION RATE > 60.0 (>35); GLUCOSE, FASTING 117 MG/DL (70-100); POTASSIUM SERUM 3.7 MEQ/L (3.5-5.1); SODIUM LEVEL 141 MEQ/L (136-145)
[2020-07-12] MEDS: LEVOTHYROXINE 125MCG TABLET (0.125MG) PO SCH (06:26)
[2020-07-12] MEDS: HEPARIN SOD (PORCINE) 5000UNITS/ML 1ML VIAL/SYRINGE SC SCH ×2 (06:27→13:01)
[2020-07-12] MEDS: HumaLOG INSULIN (NovoLOG) PER UNIT SC SCH ×3 (06:27→17:23)
[2020-07-12 07:48] VITALS: BP 121/58
[2020-07-12] MEDS: OMEPRAZOLE 20 MG CAP PO SCH (09:52)
[2020-07-12] MEDS: ASPIRIN 81 MG ENTERIC TAB PO SCH (09:52)
[2020-07-12] MEDS: SPIRONOLACTONE 25 MG TAB PO SCH (09:52)
[2020-07-12] MEDS: BUMETANIDE 1 MG TAB PO SCH (09:52)
[2020-07-12] MEDS: MAGNESIUM OXIDE 400 MG TAB (MAG-OX) PO SCH (09:53)
[2020-07-12] MEDS: DOCUSATE SODIUM 100MG CAPSULE PO SCH (09:53)
[2020-07-12] MEDS: MEROPENEM INJ 1 GM in IV 1 EA IV SCH ×2 (10:02→17:22)
[2020-07-12 12:18] VITALS: BP 141/67
[2020-07-12] MEDS: NS 1,000 ML IV SCH (13:00)
--- NOTE | 2020-07-12 14:21 | DS.PDOC ---
Discharge Summary General Date of Admission Jul 10, 2020 at 15:47 Date of Discharge 07/12/2020 Discharge Summary PROCEDURES PERFORMED DURING STAY: [None]. ADMITTING DIAGNOSES: 1. Acute encephalopathy DISCHARGE DIAGNOSES: 1. Acute encephalopathy secondary to Chronic indwelling Ernst catheter associated Klebsiella ESBL UTI COMPLICATIONS/CHIEF COMPLAINT: HISTORY OF PRESENT ILLNESS: From H&P: 85M PMHx dementia, DM2, CHF, hypothyroid, is brought in by son due to increased confusion and weakness at home over the past week. History is limited as son is no longer in the hospital and I was unable to reach him by phone. The patient has very limited communication and appears very weak and can only nod yes/no to very basic questions. He denies being in any pain but is unable to answer any questions beyond this. Medical management will be based on chart review as well as review of laboratory and imaging studies until more history can be obtained from family. Patient is presumed to have acute encephalopathy and weakness secondary developing a UTI. Patient has a permanent Ernst catheter and the son informed ED staff when he was present that they last changed to 2 out weeks ago and at that time they noticed a little more bleeding than usual usually happens when the patient has a UTI. Patient was last admitted 11/25/2019 for similar presentation also found to have a UTI. HOSPITAL COURSE: 85M PMHx dementia, DM2, CHF, hypothyroid, is brought in by son due to increased confusion and weakness at home over the past week. Admitted for Acute encephalopathy secondary to Chronic indwelling Ernst catheter associated Klebsiella ESBL UTI, sensitive to IV meropenem. Patient will be treated with IV meropenem for 5 days total last day 07/16/2020. Patient has been mentally doing better and alert and oriented now answering all questions appropriately on day of discharge. He still remains very weak and was evaluated by ARU and was deemed appropriate for acute rehabilitation. I spoke with patient's son Brandon on day of discharge and updated him to the plan. Patient will be discharged to ARU for acute rehabilitation while continuing to receive IV meropenem. # Acute encephalopathy secondary to Chronic indwelling Ernst catheter associated Klebsiella ESBL UTI. IV ceftriaxone switched IV meropenem. Treatment for 5 days. Clinically doing better acute encephalopathy has improved. Remains weak. Will require acute rehabilitation. # Chronic indwelling ernst catheter associated UTI: UA dirty from port (not bag) with leuk esterase and nitrite. IV ceftriaxone initially then switched IV meropenem. IV fluids. Blood cultures negative after 48 hours of growth. Afebrile. No leukocytosis. # Lactic acidosis: 3.1 on admit. 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 Likely 2/2 dehydration and UTI. IVFs. Abx. Resolved with IVFs. # Generalized weakness: likely from the UTI as well as old age debility and advanced Parkinson disease. IVFs. PT/OT. # BRAXTON: Cr 1.37 on admission. IVFs. Avoid nephrotoxins. Resolved with IVFs. # DM: ISS. Frequent Accu-Cheks. Hypoglycemic precautions. Carbohydrate consistent diet. # HFpEF: euvolemic on exam. Continue home meds. # Parkinson disease: with associated Parkinson dementia. Continue home meds. Bowel regiment. Hold ropinirole which can cause confusion as a s/e in small subset of pts. Also hold carbidopa/levodopa which can precipitate disorientation and confusion in some patients. # Hypothyroidism: continue levothyroxine. # GERD: PPI DISCHARGE MEDICATIONS: Please see below. ALLERGIES: Please see below. PHYSICAL EXAMINATION ON DISCHARGE: Constitutional: sleepy, old, and weak appearing but not in distress. ENT: Sclera are clear. Mucosa is dry. Respiratory: Lungs CTA bilaterally. No respiratory distress. No use of accessory muscles. Cardiovascular: RRR S1 and S2 are normal. No JVD Gastrointestinal: Abdomen is soft, non distended, non tender, BS present. Ernst in place. Musculoskeletal: No LE edema. Neurologic: No focal neurologic deficits Mental Status: Able to answer all questions today appropriately alert and oriented 3 Skin: Warm, dry, scattered petechia on lower extremities resolved compared to yesterday LABORATORY DATA: Please see below. PROGNOSIS: fair ACTIVITY: [As tolerated]. DIET: Consistent carbohydrate diet DISPOSITION: Discharged to ARU DISCHARGE INSTRUCTIONS: Please follow up with your primary care physician within 1 week from discharge. If you do not have one, please follow up with us to schedule an appointment. Please keep all of your follow up appointments. Please call central to book your appointments with hospital specialists. Please take all your medications as prescribed. Please call/come to Clinic or go to the Emergency Department if - Temp >101, intractable Nausea/Vomiting, Diarrhea, Mouth sores, Headaches, Altered mental status, Seizures, sudden onset of swelling, bleeding, shortness of breath or chest pain. DISCHARGE CONDITION: [Stable]. TIME SPENT ON DISCHARGE: Greater than 40 minutes. Vital Signs/I&Os Vital Signs Date Time Temp Pulse Resp B/P (MAP) Pulse Ox O2 Delivery O2 Flow Rate FiO2 07/12/20 12:18 97.7 68 18 141/67 (91) 96 Room Air I&O- Last 24 Hours up to 6 AM 07/12/20 06:00 Intake Total 2410 ml Output Total 1400 ml Balance 1010 ml Laboratory Data Labs 24H Laboratory Tests 2 07/11/20 16:44: Bedside Glucose (Misc Panel) 165H 07/11/20 23:43: Bedside Glucose (Misc Panel) 143H 07/12/20 04:56: Immature Granulocyte % (Auto) 0.4, Neutrophils (%) (Auto) 61.9, Lymphocytes (%) (Auto) 24.4, Monocytes (%) (Auto) 5.1H, Eosinophils (%) (Auto) 7.5H, Basophils (%) (Auto) 0.7, Neutrophils # (Auto) 3.4, Lymphocytes # (Auto) 1.3L, Monocytes # (Auto) 0.3, Eosinophils # (Auto) 0.4, Basophils # (Auto) 0.0, Nucleated Red Blood Cells % (auto) 0.0, Anion Gap 6L, Glomerular Filtration Rate > 60.0, Calcium Level 7.7L 07/12/20 11:49: Bedside Glucose (Misc Panel) 221H CBC/BMP Laboratory Tests 07/12/20 04:56 FSBS Laboratory Tests Test 07/11/20 16:44 07/11/20 23:43 07/12/20 11:49 Range/Units Bedside Glucose (Misc Panel) 165 143 221 83-110 MG/DL Microbiology Microbiology 07/10/20 Blood Culture - Preliminary, Resulted No Growth after 48 hours. All Specime... 07/10/20 Blood Culture - Preliminary, Resulted No Growth after 48 hours. All Specime... 07/10/20 Urine Culture - Preliminary, Resulted Klebsiella Pneumoniae Esbl Discharge Medications Scheduled Aspirin (Aspirin EC) 81 Mg Tab, 81 MG PO DAILY, (Reported) @ NOON Bumetanide (Bumetanide) 1 Mg Tab, 1 MG PO BID, (Reported) NOON AND BEDTIME Calcium Carbonate/Vitamin D3 (Calcium 600-Vit D3 200 Tablet) 1 Each Tablet, 1 TAB PO BID, (Reported) Carbidopa/Levodopa (Carbidopa-Levo ER 25-100 Tab) 1 Each Tablet.er, 1 TAB PO QHS, (Reported) Carbidopa/Levodopa (Carbidopa-Levodopa 25-100 Tab) 1 Each Tablet, 2.5 TAB PO TID, (Reported) Cyanocobalamin (Vitamin B-12) (Vitamin B-12) 5,000 Mcg Capsule, 5,000 MCG PO DAILY, (Reported) @ NOON Donepezil HCl (Donepezil HCl) 10 Mg Tablet, 10 MG PO QHS, (Reported) Levothyroxine Sodium (Synthroid) 125 Mcg Tab, 125 MCG PO QAM, (Reported) Lutein (Lutein) 10 Mg Tab, 10 MG PO DAILY, (Reported) @ 1200 Magnesium Oxide (Magnesium Oxide) 400 Mg Tab, 400 MG PO BID, (Reported) @ 1200 and 2200 Memantine HCl (Memantine HCl) 10 Mg Tab, 10 MG PO BID, (Reported) @ 1200 and HS Metformin HCl (Metformin HCl) 500 Mg Tab, 500 MG PO BID, (Reported) Daily and @ 1900 Mirabegron (Myrbetriq) 25 Mg Tab.er.24h, 25 MG PO DAILY, (Reported) @ NOON Nitrofurantoin Monohyd/M-Cryst (Nitrofurantoin [place]-Mcr 100 mg) 100 Mg Capsule, 100 MG PO BID, (Reported) FILLED 07/04/20 FOR 7 DAYS Omeprazole (Omeprazole) 20 Mg Capsule.dr, 20 MG PO BID, (Reported) @ 0700 & HS Ropinirole HCl (Ropinirole HCl) 0.25 Mg Tablet, 0.5 MG PO QHS, (Reported) Spironolactone (Spironolactone) 25 Mg Tablet, 12.5 MG PO DAILY, (Reported) @ NOON Ubidecarenone (Co Q-10) 10 Mg Cap, 10 MG PO QPM, (Reported) @ 1900 Scheduled PRN Docusate Sodium (Stool Softener) 50 Mg Capsule, 50 MG PO BID PRN for CONSTIPATION, (Reported) Allergies Coded Allergies: No Known Allergies (Unverified , 11/25/19) TOM STANLEY MD Jul 12, 2020 14:21
[2020-07-12] MEDS ORDERED: DOCU100C16 PO (14:24)
[2020-07-12] MEDS ORDERED: MERO1INJ8 IV (14:24)
[2020-07-12 15:20] VITALS: BP 129/58
== END 2020-07-12 18:05 | DRG 699 ==
LOC: M ED 12:13 → EDBD 12:13 → M PCU 15:47 → M ED INP 15:47 → ENRESERV 17:50 → M PCU 20:21
PROVIDERS: ADMIT Family Medicine; ATTEND Family Medicine
DX: T83.511A Infection and inflammatory reaction due to indwelling urethral catheter, initial encounter (principal); G93.40 Encephalopathy, unspecified; N17.9 Acute kidney failure, unspecified; I50.32 Chronic diastolic (congestive) heart failure; E87.2 Acidosis; N39.0 Urinary tract infection, site not specified; B96.1 Klebsiella pneumoniae [K. pneumoniae] as the cause of diseases classified elsewhere; E11.9 Type 2 diabetes mellitus without complications; E03.9 Hypothyroidism, unspecified; G20 Parkinson's disease; F02.80 Dementia in other diseases classified elsewhere, unspecified severity, without behavioral disturbance, psychotic disturbance, mood disturbance, and anxiety; K21.9 Gastro-esophageal reflux disease without esophagitis; Z79.82 Long term (current) use of aspirin; Z79.899 Other long term (current) drug therapy; Y84.6 Urinary catheterization as the cause of abnormal reaction of the patient, or of later complication, without mention of misadventure at the time of the procedure

== ENCOUNTER 2020-07-12 12:58 | Inpatient (IN) | payer MEDICARE, OTHER ==
[~2020-07-12] VITALS: Ht 175.3 cm; Wt 75.4 kg
[~2020-07-12 12:58] MED LIST changes: +NITR100C2 PO; +ROPI0.253 PO
[2020-07-12] MEDS ORDERED: DOCU100C16 PO (14:24)
[2020-07-12] MEDS ORDERED: MERO1INJ8 IV (14:24)
[2020-07-12 18:18] VITALS: BP 111/53
--- NOTE | 2020-07-12 19:22 | HPEPDOC ---
[facility] Note DATE OF ADMISSION: 07.12.2020 DATE OF SERVICE: 07.12.2020 TIME OF ADMISSION: Please refer to physician's admission order. SOURCE OF ADMISSION INFORMATION: Medical Records and Patient ADMITTING DIAGNOSES: Encephalopathy Klebsiella ESBL UTI Lactic Acidosis Generalized debility Diabetes Parkinsons Dementia Hypothyroidism GERD Dehydration CHIEF COMPLAINT: . Debility Confusion HISTORY OF PRESENT ILLNESS: This is an 85 year old diabetic gentleman with history of Parkinsons/Dementia who experienced a significant decline in function, found to have Klebsiella UTI upon admission to the hospital 07.10.2020. The patient has longstanding indwelling Quiles usually changed every 2 weeks, last change apparently a bit more traumatic with bleeding noted similar to prior presentations for UTI episodes. The patient was started on Ceftriaxone and now current plan is to complete treatment with Meropenem for 5 days total, ending 07.16.2020. Blood cultures were negative. The patient became more alert, but was very deconditioned by the episode and has been referred to ARU for reconditioning, safety, further family training. REVIEW OF SYSTEMS: The following is a completed review of systems and has been reviewed. Review of systems otherwise unremarkable. PAIN: Patient self reports no pain. EYES: No recent vision changes. EARS, NOSE, & THROAT: No throat pain, or dysphagia, or rhinorrhea. CARDIOVASCULAR: Denies chest pain or palpitations. PULMONARY: Denies shortness of breath. GASTROINTESTINAL: Denies constipation/diarrhea. GENITOURINARY: Quiles MUSCULOSKELETAL: Stiffness, no new complaints NEUROLOGICAL: Parkinsons SKIN: intact PSYCHIATRIC: Mild Dementia All other review of systems found to be negative. PAST MEDICAL HISTORY: Encephalopathy Diabetes Parkinsons Dementia Hypothyroidism GERD PAST SURGICAL HISTORY: Cholecystectomy Lithotripsy ALLERGIES: Please see below. MEDICATIONS: Please see below. FAMILY HISTORY: unable to obtain SOCIAL HISTORY: non Smoker, no EtOH, lives with . DIET: Regular low CHO PHYSICAL EXAMINATION: VITAL SIGNS: Please see below. GENERAL: Pleasant and cooperative. No acute distress. Alert and oriented times two. HEENT: PERRL. Extraocular movements intact. Clear conjunctiva, no adenopathy or thyromegaly. Full cervical range of motion without tenderness or spasm. CARDIOVASCULAR: Regular rate and rhythm. No murmurs, rubs, or gallops. LUNGS: Clear to auscultation bilaterally. No wheezes. No rhonchi. ABDOMEN: Soft, nontender, nondistended. Positive bowel sounds. Normal active bowel sounds, no organomegaly. NEUROLOGICAL: Alert and oriented times three. Cranial nerves II through XII intact. Sensation grossly intact. Reflexes 1 + and symmetric bilateral biceps, brachial radialis, jerks. 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 2+ cogwheeling on passive range of motion R UE SKIN: Intact LABORATORY DATA: Please see below. FUNCTIONAL STATUS: Premorbid: SBA with all activities of daily life as well as mobility. On Admission: -Maximal assistance for lower body dressing, shower transfers, stairs. -Moderate assistance for bathing, upper body dressing, bed chair and wheelchair transfers, toilet transfers, ambulation. - sit to stand CTGA -Quiles GOALS: Fully assess and return to baseline level of assistance required, manageable for and current caregiving team. Prevent further complications of debility Complete RX UTI ASSESSMENT:[id number] gentleman with history of Parkinsons/Dementia who experienced a significant decline in function, found to have Klebsiella UTI upon admission to the hospital 07.10.2020. The patient has longstanding indwelling Quiles usually changed every 2 weeks, last change apparently a bit more traumatic with bleeding noted similar to prior presentations for UTI episodes. The patient was started on Ceftriaxone and now current plan is to complete treatment with Meropenem for 5 days total, ending 07.16.2020. Blood cultures were negative. The patient became more alert, but was very deconditioned by the episode and has been referred to ARU for reconditioning, safety, further family training. PLAN: 1. Rehab- PT/OT advance gait and ADls, strengthen/stretch/maintain ROM all 4 limbs. 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 2. Neuro- optimize parkinsons medication again once cognitively clears, hospitalist held for now 3. Cardiac- hx of CAD with Stents -HTN c/u ARB -HLD- c/u Zocor 4. Resp -incentive spirometry, monitor for infection 5. Endo- hx of 6. - UTI, Quiles, iinitially rxd with ceftriaxone now IV Meropenem until 07.16. Blood Cx neg, afebrile, WBC WNL 7. GI- Hx GERD - PPI POST ADMISSION PHYSICIAN EVALUATION: Medical and functional status: Description of medical status, medical assessment: As above. Rehabilitation diagnosis and current and prior cold morbid medical conditions as above. Risk of complications and plans to mitigate them as above. Description of functional status current status is as above. Prior status as above. Status compared to preadmission: There are no clinically significant differences between the patient's current status and the information described on the preadmission screening document. Treatment plan anticipated: Treatment plan is as described above. Required disciplines including physical therapy, occupational therapy, others as noted above. Intensity of services: 3 hours a day, 6-7 days a week. Special considerations: There are no specific special or safety considerations that would likely preclude immediate implementation of an intensive rehabilitation program or subsequently influence the plan of care. ATTESTATION: Considering all the information above, it is my best judgment that this patient requires intensive rehabilitation therapy as described above and an inpatient hospital environment due to the complexity of nursing, medical, and rehabilitation needs required by the patient. Furthermore, this patient can reasonably be expected to participate in an benefit from an inpatient rehabilitation stay with an interdisciplinary team approach to the delivery of rehabilitation care under the direction and supervision of rehabilitation physician. PROGNOSIS: Excellent. ESTIMATED LENGTH OF STAY:7-10 days. PROJECTED DISCHARGE DESTINATION: Home with family support and any durable medical equipment required to increase functional safety and mobility. TIME SPENT COUNSELING AND COORDINATING INITIAL CARE: Greater than 60 minutes. This document is generated using speech recognition software which may result in grammatical, typographical and individual word errors. Vital Signs Vital Sign - Last 24 Hours 07/12/20 18:18 Temp 98.5 Pulse 67 Resp 18 B/P (MAP) 111/53 (72) Pulse Ox 97 O2 Delivery Room Air Home Medications Scheduled Aspirin (Aspirin EC) 81 Mg Tab, 81 MG PO DAILY, (Reported) @ NOON Bumetanide (Bumetanide) 1 Mg Tab, 1 MG PO BID, (Reported) NOON AND BEDTIME Calcium Carbonate/Vitamin D3 (Calcium 600-Vit D3 200 Tablet) 1 Each Tablet, 1 TAB PO BID, (Reported) Cyanocobalamin (Vitamin B-12) (Vitamin B-12) 5,000 Mcg Capsule, 5,000 MCG PO DAILY, (Reported) @ NOON Docusate Sodium (Docusate Sodium) 100 Mg Capsule, 100 MG PO BID Donepezil HCl (Donepezil HCl) 10 Mg Tablet, 10 MG PO QHS, (Reported) Levothyroxine Sodium (Synthroid) 125 Mcg Tab, 125 MCG PO QAM, (Reported) Lutein (Lutein) 10 Mg Tab, 10 MG PO DAILY, (Reported) @ 1200 Magnesium Oxide (Magnesium Oxide) 400 Mg Tab, 400 MG PO BID, (Reported) @ 1200 and 2200 Meropenem (Meropenem-0.9% NaCl 1 Gram/50) 1 Gm/50 Ml Piggyback, 1 INJ IV Q8H Metformin HCl (Metformin HCl) 500 Mg Tab, 500 MG PO BID, (Reported) Daily and @ 1900 Mirabegron (Myrbetriq) 25 Mg Tab.er.24h, 25 MG PO DAILY, (Reported) @ NOON Omeprazole (Omeprazole) 20 Mg Capsule.dr, 20 MG PO BID, (Reported) @ 0700 & HS Spironolactone (Spironolactone) 25 Mg Tablet, 12.5 MG PO DAILY, (Reported) @ NOON Ubidecarenone (Co Q-10) 10 Mg Cap, 10 MG PO QPM, (Reported) @ 1900 Scheduled PRN Docusate Sodium (Stool Softener) 50 Mg Capsule, 50 MG PO BID PRN for CONSTIPATION, (Reported) Allergies Coded Allergies: No Known Allergies (Unverified , 11/25/19) A-FIB/CHADSVASC A-FIB History Current/History of A-Fib/PAF?: No Current PO Anticoag Therapy: No Age/Risk Factor Scoring CHADSVASC: CHADSVASC Response (Comments) Value Age Risk Factor Age >/= 75 years old 2 Gender Risk Factor Male 0 Hx of CHF No 0 Hx of HTN Yes 1 Hx of Stroke/TIA/or VTE No 0 Hx of Diabetes Yes 1 Hx of Vascular Disease No 0 Total 4 Treatment Treatment ordered: NONE DEBRA WHITE MD Jul 12, 2020 19:22
[2020-07-12 20:00] VITALS: BP 141/65
[2020-07-12] MEDS ORDERED: MEROPENEM 1GM IN NACL 0.9% 50ML IVBAG (J2185 PER 100MG) IV SCH (20:45)
[2020-07-12] MEDS ORDERED: CALCIUM CARBONATE 500 MG CHEW U/D PO PRN (20:45)
[2020-07-12] MEDS: OMEPRAZOLE 20 MG CAP PO SCH (21:43)
[2020-07-12] MEDS: metFORMIN (GLUCOPHAGE) 500 MG TAB PO SCH (21:44)
[2020-07-12] MEDS: CALCIUM/VITAMIN D 500 MG TAB PO SCH (21:44)
[2020-07-12] MEDS: MAGNESIUM OXIDE 400 MG TAB (MAG-OX) PO SCH (21:44)
[2020-07-12] MEDS: DOCUSATE SODIUM 100MG CAPSULE PO SCH (21:44)
[2020-07-12] MEDS: BUMETANIDE 1 MG TAB PO SCH (22:17)
[2020-07-13] MEDS: MEROPENEM INJ 1 GM in IV 1 EA IV SCH ×3 (03:30→17:31)
[2020-07-13] MEDS: LEVOTHYROXINE 125MCG TABLET (0.125MG) PO SCH (05:50)
[2020-07-13 06:00] VITALS: BP 127/63
[2020-07-13 07:45] LABS: BASO % 0.7 % (0.0-1.0); EOS # 0.4 10^3/uL (0.0-0.5); EOS % 7.1 % (0.0-3.0); HEMATOCRIT 30.5 % (42.0-52.0); HEMOGLOBIN 9.5 g/dl (13.5-17.5); LYMPH # 1.7 10^3/uL (1.5-5.0); LYMPH % 27.8 % (24.0-44.0); MEAN CORPUSCULAR HEMOGLOBIN 27.5 pg (27.0-33.0); MEAN CORPUSCULAR HGB CONC 31.1 g/dl (32.0-36.5); MEAN CORPUSCULAR VOLUME 88.2 fl (80.0-96.0); MONO # 0.4 10^3/uL (0.0-0.8); MONO % 6.7 % (0.0-5.0); NEUTROPHILS # 3.5 10^3/uL (1.5-8.5); NEUTROPHILS % 57.4 % (36.0-66.0); PLATELET COUNT, AUTOMATED 198 10^3/uL (150-450); RED BLOOD COUNT 3.46 10^6/uL (4.30-6.10); WHITE BLOOD COUNT 6.1 10^3/uL (4.0-10.0)
[2020-07-13 08:20] LABS: ALBUMIN 2.3 GM/DL (3.2-5.2); ALT/SGPT 92 U/L (12-78); BILIRUBIN,TOTAL 0.3 MG/DL (0.2-1.0); BLOOD UREA NITROGEN 14 MG/DL (7-18); CALCIUM LEVEL 7.9 MG/DL (8.8-10.2); CARBON DIOXIDE LEVEL 29 MEQ/L (21-32); CHLORIDE LEVEL 106 MEQ/L (98-107); CREATININE FOR GFR 1.05 MG/DL (0.70-1.30); GLOMERULAR FILTRATION RATE > 60.0 (>35); GLUCOSE, FASTING 176 MG/DL (70-100); POTASSIUM SERUM 3.7 MEQ/L (3.5-5.1); SODIUM LEVEL 140 MEQ/L (136-145); TOTAL PROTEIN 5.4 GM/DL (6.4-8.2)
[2020-07-13] MEDS: VITAMIN B COMPLEX/VIT C CAP PO SCH (09:46)
[2020-07-13] MEDS: OMEPRAZOLE 20 MG CAP PO SCH ×2 (09:46→22:26)
[2020-07-13] MEDS: OCUVITE 1 TAB PO SCH (09:46)
[2020-07-13] MEDS: metFORMIN (GLUCOPHAGE) 500 MG TAB PO SCH ×2 (09:47→22:25)
[2020-07-13] MEDS: MAGNESIUM OXIDE 400 MG TAB (MAG-OX) PO SCH ×2 (09:47→22:26)
[2020-07-13] MEDS: DOCUSATE SODIUM 100MG CAPSULE PO SCH ×2 (09:47→22:25)
[2020-07-13] MEDS: BUMETANIDE 1 MG TAB PO SCH ×2 (09:47→22:26)
[2020-07-13] MEDS: CALCIUM/VITAMIN D 500 MG TAB PO SCH ×2 (09:48→22:25)
[2020-07-13] MEDS: ASPIRIN 81 MG ENTERIC TAB PO SCH (09:48)
[2020-07-13] MEDS: SPIRONOLACTONE 25 MG TAB PO SCH (09:48)
[2020-07-13] MEDS ORDERED: DEXTROSE 50% 50 ML SYRINGE IV PRN (12:30)
[2020-07-13] MEDS ORDERED: GLUCAGON INJ 1MG VIAL SC PRN (12:30)
[2020-07-13] MEDS ORDERED: GLUCOSE 4GM CHEW TABLET PO PRN (12:30)
--- NOTE | 2020-07-13 12:40 | IPNPDOC ---
PM&R Progress Note DATE OF SERVICE: Jul 13, 2020 Roll Forger Progress Note DATE OF ADMISSION: Jul 12, 2020 at 18:16 INPATIENT REHABILITATION ADMISSION DAY: # 2 CHIEF COMPLAINT: . Debility Confusion HISTORY OF PRESENT ILLNESS: This is an 85 year old diabetic gentleman with history of Parkinsons/Dementia who experienced a significant decline in function, found to have Klebsiella UTI upon admission to the hospital 07.10.2020. The patient has longstanding indwelling Quiles usually changed every 2 weeks, last change apparently a bit more traumatic with bleeding noted similar to prior presentations for UTI episodes. The patient was started on Ceftriaxone and now current plan is to complete treatment with Meropenem for 5 days total, ending 07.16.2020. Blood cultures were negative. The patient became more alert, but was very deconditioned by the episode and was referred to ARU for reconditioning, safety, further family training. Behavioral issues noted overnight he managed to pull out several IV lines. REVIEW OF SYSTEMS: The following is a completed review of systems and has been reviewed. Review of systems otherwise unremarkable. PAIN: Patient self reports no pain. EYES: No recent vision changes. EARS, NOSE, & THROAT: No throat pain, or dysphagia, or rhinorrhea. CARDIOVASCULAR: Denies chest pain or palpitations. PULMONARY: Denies shortness of breath. GASTROINTESTINAL: Denies constipation/diarrhea. GENITOURINARY: Quiles MUSCULOSKELETAL: Stiffness, no new complaints NEUROLOGICAL: Parkinsons SKIN: intact PSYCHIATRIC: Mild Dementia All other review of systems found to be negative. PAST MEDICAL HISTORY: Encephalopathy Diabetes Parkinsons Dementia Hypothyroidism GERD PAST SURGICAL HISTORY: Cholecystectomy Lithotripsy ALLERGIES: Please see below. MEDICATIONS: Please see below. DIET: Regular low CHO, undergoing bedside swallowing eval with speech PHYSICAL EXAMINATION: VITAL SIGNS: Please see below. GENERAL: Pleasant and cooperative, blank expression. Alert and oriented times two. HEENT: PERRL. Extraocular movements intact. Clear conjunctiva, no adenopathy or thyromegaly. Full cervical range of motion without tenderness or spasm. CARDIOVASCULAR: Regular rate and rhythm. No murmurs, rubs, or gallops. LUNGS: Clear to auscultation bilaterally. No wheezes. No rhonchi. ABDOMEN: Soft, nontender, nondistended. Positive bowel sounds. Normal active bowel sounds. NEUROLOGICAL: Alert and oriented times three. Cranial nerves II through XII intact. Sensation grossly intact. Reflexes 1 + and symmetric bilateral biceps, brachial radialis, jerks. EXTREMITIES: 5/5 certified industrial hygienist, elbow flexion, unable to fully assess knee extension, foot dorsiflexion, plantar flexion. 2+ cogwheeling on passive range of motion RUE SKIN: Intact LABORATORY DATA: Please see below. FUNCTIONAL STATUS: Premorbid: SBA with all activities of daily life as well as mobility. -Maximal assistance for lower body dressing, shower transfers, stairs. -Moderate assistance for bathing, upper body dressing, bed chair and wheelchair transfers, toilet transfers, ambulation. - sit to stand CTGA -Quiles GOALS: Fully assess and return to baseline level of assistance required, manageable for and current caregiving team. Prevent further complications of debility Complete RX UTI ASSESSMENT: Encephalopathy Klebsiella ESBL UTI S/P Lactic Acidosis Generalized debility Diabetes Parkinson's Dementia Hypothyroidism GERD Dehydration [id number] gentleman with history of Parkinsons/Dementia who experienced a significant decline in function, found to have Klebsiella UTI upon admission to the hospital 07.10.2020. The patient has longstanding indwelling Quiles usually changed every 2 weeks, last change apparently a bit more traumatic with bleeding noted similar to prior presentations for UTI episodes. The patient was started on Ceftriaxone and now current plan is to complete treatment with Meropenem for 5 days total, ending 07.16.2020. Blood cultures were negative. The patient became more alert, but was very deconditioned by the episode and has been referred to ARU for reconditioning, safety, further family training. He is adjusting to the routine on the unit. PLAN: 1. Rehab- PT/OT advance gait and ADls, strengthen/stretch/maintain ROM all 4 limbs. Will include SAT ACT INSTRUCTOR for cognitive assessment update and suggested strategies and family education to enhance carryover of new learning. 2. Neuro- optimize parkinsons medication again once cognitively clears, hospitalist held for now 3. Cardiac- hx of CAD with Stents -HTN c/u ARB -HLD- c/u Zocor 4. Resp -incentive spirometry, monitor for infection 5. Endo- hx of DM, stable. FBS 176, will check TFTs 6. - UTI, Quiles, iinitially rxd with ceftriaxone now IV Meropenem until .7. Blood Cx neg, afebrile, WBC WNL 7. GI- Hx GERD - PPI PROGNOSIS: Good to be able to return to baseline level of function. ESTIMATED LENGTH OF STAY:7-10 days. PROJECTED DISCHARGE DESTINATION: Home with family support and any durable medical equipment required to increase functional safety and mobility. TIME SPENT COUNSELING AND COORDINATING INITIAL CARE: 35 minutes. This document is generated using speech recognition software which may result in grammatical, typographical and individual word errors. Allergies Coded Allergies: No Known Allergies (Unverified , 11/25/19) Vital Signs Vital Signs Date Time Temp Pulse Resp B/P (MAP) Pulse Ox O2 Delivery O2 Flow Rate FiO2 07/13/20 06:00 99.2 61 18 127/63 (84) 97 Room Air Laboratory Data CBC/BMP Laboratory Tests 07/13/20 07:28 Labs 24H Laboratory Tests 2 07/13/20 07:28: Immature Granulocyte % (Auto) 0.3, Neutrophils (%) (Auto) 57.4, Lymphocytes (%) (Auto) 27.8, Monocytes (%) (Auto) 6.7H, Eosinophils (%) (Auto) 7.1H, Basophils (%) (Auto) 0.7, Neutrophils # (Auto) 3.5, Lymphocytes # (Auto) 1.7, Monocytes # (Auto) 0.4, Eosinophils # (Auto) 0.4, Basophils # (Auto) 0.0, Nucleated Red Blood Cells % (auto) 0.0, Anion Gap 5L, Glomerular Filtration Rate > 60.0, Calcium Level 7.9L, Total Bilirubin 0.3, Aspartate Amino Transf (AST/SGOT) 20, Alanine Aminotransferase (ALT/SGPT) 92H, Alkaline Phosphatase 158H, Total Protein 5.4#L, Albumin 2.3#L, Albumin/Globulin Ratio 0.7 Current Medications Current Medications Current Medications Medications (Trade) Dose Ordered Sig/Isa Route PRN Reason Start Time Stop Time Status Last Admin Dose Admin Aspirin (Ecotrin) 81 mg DAILY PO 07/13/20 09:00 07/13/20 09:48 Bumetanide (Bumex) 1 mg BID PO 07/12/20 21:00 07/13/20 09:47 Calcium Carbonate (Tums) 500 mg DAILY PRN PO INDIGESTION 07/12/20 20:45 Cancel Calcium/Vitamin D (Oscal D) 500 mg BID PO 07/12/20 21:00 07/13/20 09:48 Docusate Sodium (Colace) 100 mg BID PO 07/12/20 21:00 07/13/20 09:47 Heparin Sodium (Porcine) (Heparin) 5,000 units Q8H SQ 07/13/20 14:00 Home Med (Med Rec Complete!) ASDIRECTED XX 07/12/20 20:15 07/12/20 20:13 DC Levothyroxine Sodium (Synthroid) 125 mcg DAILY@0600 PO 07/13/20 06:00 07/13/20 05:50 Magnesium Oxide (Mag-Ox) 400 mg BID PO 07/12/20 21:00 07/13/20 09:47 Meropenem (Merrem) 1 gm Q8H IV 07/12/20 20:45 07/12/20 20:57 DC Meropenem 1 gm/IV Miscellaneous Supplies 50 ml @ 100 mls/hr Q8H IV 07/13/20 02:00 07/13/20 09:49 Metformin HCl (Glucophage) 500 mg BID PO 07/12/20 21:00 07/13/20 09:47 Multivitamins (Ocuvite(I-Bindu)) 1 tab DAILY PO 07/13/20 09:00 07/13/20 09:46 Omeprazole (PriLOSEC) 20 mg BID PO 07/12/20 21:00 07/13/20 09:46 Spironolactone (Aldactone) 12.5 mg DAILY PO 07/13/20 09:00 07/13/20 09:48 Vitamin B Complex/ Vitamin C (Therapeutic B Complex w/C) 1 cap DAILY PO 07/13/20 09:00 07/13/20 09:46 DEBRA WHITE MD Jul 13, 2020 12:40
--- NOTE | 2020-07-13 13:51 | HPEPDOC ---
[facility] Medical History & Physical History and Physical CHIEF COMPLAINT: HISTORY OF PRESENT ILLNESS: PAST MEDICAL HISTORY: 1. . 2. . 3. . PAST SURGICAL HISTORY: 1. . 2. . 3. . SOCIAL HISTORY: Marital status: . Resides in: Children: Employment: Tobacco use: ETOH: Illicit drug use: Tattoos done unprofessionally: . IV drug use: Other relevant social factors: FAMILY HISTORY: Father: Mother: Siblings: Children: Hereditary Diseases: Unexpected deaths due to medical reasons: ALLERGIES: Please see below. REVIEW OF SYSTEMS: CONSTITUTIONAL: . HEENT: . CARDIOVASCULAR: . RESPIRATORY: . GASTROINTESTINAL: . GENITOURINARY: . SKIN: . MUSCULOSKELETAL: . NEUROLOGICAL: . PSYCHIATRIC: . ENDOCRINE: . HEMATOLOGIC/LYMPHATIC: . HOME MEDICATIONS: Please see below. PHYSICAL EXAMINATION: VITAL SIGNS: Temperature , pulse , respiratory rate , blood pressure , pulse oximetry % on room air. GENERAL APPEARANCE: . HEENT: . CARDIOVASCULAR: . LUNGS: . ABDOMEN: . MUSCULOSKELETAL: . EXTREMITIES: . NEUROLOGICAL: . PSYCHIATRIC: . LABORATORY DATA: See below. IMAGING: MICROBIOLOGY: Please see below. ASSESSMENT: . . PLAN: 1. . Vital Signs Vital Signs Date Time Temp Pulse Resp B/P (MAP) Pulse Ox O2 Delivery O2 Flow Rate FiO2 07/13/20 06:00 99.2 61 18 127/63 (84) 97 Room Air Laboratory Data Labs 24H Laboratory Tests 2 07/13/20 07:28: Immature Granulocyte % (Auto) 0.3, Neutrophils (%) (Auto) 57.4, Lymphocytes (%) (Auto) 27.8, Monocytes (%) (Auto) 6.7H, Eosinophils (%) (Auto) 7.1H, Basophils (%) (Auto) 0.7, Neutrophils # (Auto) 3.5, Lymphocytes # (Auto) 1.7, Monocytes # (Auto) 0.4, Eosinophils # (Auto) 0.4, Basophils # (Auto) 0.0, Nucleated Red Blood Cells % (auto) 0.0, Anion Gap 5L, Glomerular Filtration Rate > 60.0, Calcium Level 7.9L, Total Bilirubin 0.3, Aspartate Amino Transf (AST/SGOT) 20, Alanine Aminotransferase (ALT/SGPT) 92H, Alkaline Phosphatase 158H, Total Protein 5.4#L, Albumin 2.3#L, Albumin/Globulin Ratio 0.7 CBC/BMP Laboratory Tests 07/13/20 07:28 Home Medications Scheduled Aspirin (Aspirin EC) 81 Mg Tab, 81 MG PO DAILY @ NOON Bumetanide (Bumetanide) 1 Mg Tab, 1 MG PO BID NOON AND BEDTIME Calcium Carbonate/Vitamin D3 (Calcium 600-Vit D3 200 Tablet) 1 Each Tablet, 1 TAB PO BID Cyanocobalamin (Vitamin B-12) (Vitamin B-12) 5,000 Mcg Capsule, 5,000 MCG PO DAILY @ NOON Docusate Sodium (Docusate Sodium) 100 Mg Capsule, 100 MG PO BID Donepezil HCl (Donepezil HCl) 10 Mg Tablet, 10 MG PO QHS Levothyroxine Sodium (Synthroid) 125 Mcg Tab, 125 MCG PO QAM Lutein (Lutein) 10 Mg Tab, 10 MG PO DAILY @ 1200 Magnesium Oxide (Magnesium Oxide) 400 Mg Tab, 400 MG PO BID @ 1200 and 2200 Meropenem (Meropenem-0.9% NaCl 1 Gram/50) 1 Gm/50 Ml Piggyback, 1 INJ IV Q8H Metformin HCl (Metformin HCl) 500 Mg Tab, 500 MG PO BID Daily and @ 1900 Mirabegron (Myrbetriq) 25 Mg Tab.er.24h, 25 MG PO DAILY @ NOON Omeprazole (Omeprazole) 20 Mg Capsule.dr, 20 MG PO BID @ 0700 & HS Spironolactone (Spironolactone) 25 Mg Tablet, 12.5 MG PO DAILY @ NOON Ubidecarenone (Co Q-10) 10 Mg Cap, 10 MG PO QPM @ 1900 Scheduled PRN Docusate Sodium (Stool Softener) 50 Mg Capsule, 50 MG PO BID PRN for CONSTIPATION Allergies Coded Allergies: No Known Allergies (Unverified , 11/25/19) TOM STANLEY MD Jul 13, 2020 13:51
[2020-07-13 14:00] VITALS: BP 116/56
[2020-07-13 14:10] VITALS: BP 127/63
--- NOTE | 2020-07-13 14:35 | HPEPDOC ---
[facility] Medical History & Physical Date of Admission Jul 13, 2020 Date of Service: Jul 13, 2020 History and Physical CHIEF COMPLAINT: Medical evaluation for patient to acute rehabilitation unit HISTORY OF PRESENT ILLNESS: This patient is known to me I discharged him yesterday from medical unit to the acute rehabilitation unit. Today I was asked to provide a medical evaluation of this patient during his stay in the acute rehabilitation unit. 85M PMHx dementia, DM2, CHF, hypothyroid, is brought in by son on July 10 due to increased confusion and weakness at home over the past week. He was admitted for acute encephalopathy on July 10 secondary to chronic indwelling Quiles catheter associated Klebsiella ESBL UTI. ESBL sensitive to IV meropenem which she was started on and will continue until July 16 for the last day. Patient was discharged from the hospital on 07/12/2020 and admitted to the acute rehabilitation unit. Patient has been progressing well and his weakness appears improved today compared to the past few days. He tells me his feeling better but still remains weak. He tells me he worked for a few hours with the rehabilitation staff today and feel stronger. PAST MEDICAL HISTORY: From chart review 1. Parkinsons Dementia 2. Diabetes Mellitus Type 2 3. Congestive Heart Failure 4. Hypothyroidism 5. GERD PAST SURGICAL HISTORY: From chart review 1. Cholecystectomy 2. Lithotripsy SOCIAL HISTORY: From chart review no alcohol use no tobacco use no illicit drug use FAMILY HISTORY: Reviewed and noncontributory ALLERGIES: Please see below. REVIEW OF SYSTEMS: 10 point review of systems complete all negative otherwise stated in HPI HOME MEDICATIONS: Please see below. PHYSICAL EXAMINATION: Constitutional: Sitting upright in chair having lunch and answering all questions appropriately no acute distress. ENT: Sclera are clear. Mucosa is dry. Respiratory: Lungs CTA bilaterally. No respiratory distress. No use of accessory muscles. Cardiovascular: RRR S1 and S2 are normal. No JVD Gastrointestinal: Abdomen is soft, non distended, non tender, BS present. Quiles in place. Musculoskeletal: No LE edema. Neurologic: No focal neurologic deficits Mental Status: Able to answer all questions appropriately alert and oriented 3 Skin: Warm, dry LABORATORY DATA: See below. IMAGING: MICROBIOLOGY: Please see below. ASSESSMENT/PLAN 85M PMHx Parkinson dementia, DM2, CHF, hypothyroid, is brought in by son on July 10 due to increased confusion and weakness at home over the past week. He was admitted for acute encephalopathy on July 10 secondary to chronic indwelling Quiles catheter associated Klebsiella ESBL UTI. ESBL sensitive to IV meropenem which she was started on and will continue until July 16 for the last day. Patient was discharged from the hospital on 07/12/2020 and admitted to the acute rehabilitation unit. Patient has been progressing well and his weakn ess appears improved today compared to the past few days. He tells me his feeling better but still remains weak. He tells me he worked for a few hours with the rehabilitation staff today and feel stronger. # Chronic indwelling Quiles catheter associated Klebsiella ESBL UTI: Sensitive to IV meropenem. Continue IV meropenem for total of 5 days ending on July 16. # Weakness: Acute rehabilitation # DM: ISS. Frequent Accu-Cheks. Hypoglycemic precautions. Carbohydrate consistent diet. # HFpEF: euvolemic on exam. Continue home meds. # Parkinson disease: with associated Parkinson dementia. Continue home meds. Bowel regiment. Hold ropinirole which can cause confusion as a s/e in small subset of pts. Also hold carbidopa/levodopa which can precipitate disorientation and confusion in some patients. # Hypothyroidism: continue levothyroxine. # GERD: PPI A Yousef Hospitalist Vital Signs Vital Signs Date Time Temp Pulse Resp B/P (MAP) Pulse Ox O2 Delivery O2 Flow Rate FiO2 07/13/20 14:10 99.2 61 18 127/63 97 Room Air Laboratory Data Labs 24H Laboratory Tests 2 07/13/20 07:28: Immature Granulocyte % (Auto) 0.3, Neutrophils (%) (Auto) 57.4, Lymphocytes (%) (Auto) 27.8, Monocytes (%) (Auto) 6.7H, Eosinophils (%) (Auto) 7.1H, Basophils (%) (Auto) 0.7, Neutrophils # (Auto) 3.5, Lymphocytes # (Auto) 1.7, Monocytes # (Auto) 0.4, Eosinophils # (Auto) 0.4, Basophils # (Auto) 0.0, Nucleated Red Blood Cells % (auto) 0.0, Anion Gap 5L, Glomerular Filtration Rate > 60.0, Calcium Level 7.9L, Total Bilirubin 0.3, Aspartate Amino Transf (AST/SGOT) 20, Alanine Aminotransferase (ALT/SGPT) 92H, Alkaline Phosphatase 158H, Total Protein 5.4#L, Albumin 2.3#L, Albumin/Globulin Ratio 0.7 CBC/BMP Laboratory Tests 07/13/20 07:28 Home Medications Scheduled Aspirin (Aspirin EC) 81 Mg Tab, 81 MG PO DAILY @ NOON Bumetanide (Bumetanide) 1 Mg Tab, 1 MG PO BID NOON AND BEDTIME Calcium Carbonate/Vitamin D3 (Calcium 600-Vit D3 200 Tablet) 1 Each Tablet, 1 TAB PO BID Cyanocobalamin (Vitamin B-12) (Vitamin B-12) 5,000 Mcg Capsule, 5,000 MCG PO DAILY @ NOON Docusate Sodium (Docusate Sodium) 100 Mg Capsule, 100 MG PO BID Donepezil HCl (Donepezil HCl) 10 Mg Tablet, 10 MG PO QHS Levothyroxine Sodium (Synthroid) 125 Mcg Tab, 125 MCG PO QAM Lutein (Lutein) 10 Mg Tab, 10 MG PO DAILY @ 1200 Magnesium Oxide (Magnesium Oxide) 400 Mg Tab, 400 MG PO BID @ 1200 and 2200 Meropenem (Meropenem-0.9% NaCl 1 Gram/50) 1 Gm/50 Ml Piggyback, 1 INJ IV Q8H Metformin HCl (Metformin HCl) 500 Mg Tab, 500 MG PO BID Daily and @ 1900 Mirabegron (Myrbetriq) 25 Mg Tab.er.24h, 25 MG PO DAILY @ NOON Omeprazole (Omeprazole) 20 Mg Capsule.dr, 20 MG PO BID @ 0700 & HS Spironolactone (Spironolactone) 25 Mg Tablet, 12.5 MG PO DAILY @ NOON Ubidecarenone (Co Q-10) 10 Mg Cap, 10 MG PO QPM @ 1900 Scheduled PRN Docusate Sodium (Stool Softener) 50 Mg Capsule, 50 MG PO BID PRN for CONSTIPATION Allergies Coded Allergies: No Known Allergies (Unverified , 11/25/19) A-FIB/CHADSVASC A-FIB History Current/History of A-Fib/PAF?: No TOM STANLEY MD Jul 13, 2020 14:35
[2020-07-13] MEDS: HEPARIN SOD (PORCINE) 5000UNITS/ML 1ML VIAL/SYRINGE SQ SCH ×2 (14:37→22:25)
[2020-07-13] MEDS: HumaLOG INSULIN (NovoLOG) PER UNIT SC SCH ×2 (17:31→21:00)
[2020-07-13 20:00] VITALS: BP 117/60
[2020-07-14] MEDS: MEROPENEM INJ 1 GM in IV 1 EA IV SCH ×3 (02:13→17:17)
[2020-07-14 05:57] VITALS: BP 131/63
[2020-07-14] MEDS: LEVOTHYROXINE 125MCG TABLET (0.125MG) PO SCH (06:36)
[2020-07-14] MEDS: HEPARIN SOD (PORCINE) 5000UNITS/ML 1ML VIAL/SYRINGE SQ SCH ×3 (06:36→20:52)
[2020-07-14] MEDS: DOCUSATE SODIUM 100MG CAPSULE PO SCH ×2 (09:00→20:51)
[2020-07-14] MEDS: OMEPRAZOLE 20 MG CAP PO SCH ×2 (09:41→20:50)
[2020-07-14] MEDS: CALCIUM/VITAMIN D 500 MG TAB PO SCH ×2 (09:41→20:51)
[2020-07-14] MEDS: OCUVITE 1 TAB PO SCH (09:41)
[2020-07-14] MEDS: HumaLOG INSULIN (NovoLOG) PER UNIT SC SCH ×4 (09:41→20:52)
[2020-07-14] MEDS: BUMETANIDE 1 MG TAB PO SCH ×2 (09:42→20:50)
[2020-07-14] MEDS: SPIRONOLACTONE 25 MG TAB PO SCH (09:42)
[2020-07-14] MEDS: VITAMIN B COMPLEX/VIT C CAP PO SCH (09:43)
[2020-07-14] MEDS: MAGNESIUM OXIDE 400 MG TAB (MAG-OX) PO SCH ×2 (09:43→20:51)
[2020-07-14] MEDS: metFORMIN (GLUCOPHAGE) 500 MG TAB PO SCH ×2 (09:43→20:51)
[2020-07-14] MEDS: ASPIRIN 81 MG ENTERIC TAB PO SCH (09:43)
[2020-07-14 14:00] VITALS: BP 122/65
[2020-07-14 20:00] VITALS: BP 135/65
[2020-07-15] MEDS: MEROPENEM INJ 1 GM in IV 1 EA IV SCH ×3 (01:34→17:30)
[2020-07-15] MEDS: LEVOTHYROXINE 125MCG TABLET (0.125MG) PO SCH (05:31)
[2020-07-15] MEDS: HEPARIN SOD (PORCINE) 5000UNITS/ML 1ML VIAL/SYRINGE SQ SCH ×3 (05:31→21:15)
[2020-07-15 06:00] VITALS: BP 117/59
[2020-07-15] MEDS: HumaLOG INSULIN (NovoLOG) PER UNIT SC SCH ×4 (09:45→20:12)
[2020-07-15] MEDS: ASPIRIN 81 MG ENTERIC TAB PO SCH (09:46)
[2020-07-15] MEDS: OCUVITE 1 TAB PO SCH (09:46)
[2020-07-15] MEDS: SPIRONOLACTONE 25 MG TAB PO SCH (09:46)
[2020-07-15] MEDS: BUMETANIDE 1 MG TAB PO SCH ×2 (09:46→20:46)
[2020-07-15] MEDS: OMEPRAZOLE 20 MG CAP PO SCH ×2 (09:46→20:46)
[2020-07-15] MEDS: metFORMIN (GLUCOPHAGE) 500 MG TAB PO SCH ×2 (09:47→20:47)
[2020-07-15] MEDS: DOCUSATE SODIUM 100MG CAPSULE PO SCH ×2 (09:47→20:46)
[2020-07-15] MEDS: CALCIUM/VITAMIN D 500 MG TAB PO SCH ×2 (09:47→20:47)
[2020-07-15] MEDS: MAGNESIUM OXIDE 400 MG TAB (MAG-OX) PO SCH ×2 (09:47→20:46)
[2020-07-15] MEDS: VITAMIN B COMPLEX/VIT C CAP PO SCH (09:47)
[2020-07-15 14:00] VITALS: BP 117/65
[2020-07-15 20:00] VITALS: BP 131/67
[2020-07-16] MEDS: MEROPENEM INJ 1 GM in IV 1 EA IV SCH ×3 (01:41→17:50)
[2020-07-16] MEDS: HEPARIN SOD (PORCINE) 5000UNITS/ML 1ML VIAL/SYRINGE SQ SCH ×3 (05:45→21:15)
[2020-07-16] MEDS: LEVOTHYROXINE 125MCG TABLET (0.125MG) PO SCH (05:45)
[2020-07-16 06:00] VITALS: BP 128/59
[2020-07-16 07:27] LABS: HEMATOCRIT 34.4 % (42.0-52.0); HEMOGLOBIN 10.5 g/dl (13.5-17.5); MEAN CORPUSCULAR HEMOGLOBIN 27.2 pg (27.0-33.0); MEAN CORPUSCULAR HGB CONC 30.5 g/dl (32.0-36.5); MEAN CORPUSCULAR VOLUME 89.1 fl (80.0-96.0); PLATELET COUNT, AUTOMATED 324 10^3/uL (150-450); RED BLOOD COUNT 3.86 10^6/uL (4.30-6.10); WHITE BLOOD COUNT 10.6 10^3/uL (4.0-10.0)
[2020-07-16] MEDS: DOCUSATE SODIUM 100MG CAPSULE PO SCH ×2 (09:00→21:16)
[2020-07-16] MEDS: CALCIUM/VITAMIN D 500 MG TAB PO SCH ×2 (09:18→21:16)
[2020-07-16] MEDS: MAGNESIUM OXIDE 400 MG TAB (MAG-OX) PO SCH ×2 (09:18→21:16)
[2020-07-16] MEDS: HumaLOG INSULIN (NovoLOG) PER UNIT SC SCH ×4 (09:18→21:00)
[2020-07-16] MEDS: SPIRONOLACTONE 25 MG TAB PO SCH (09:18)
[2020-07-16] MEDS: OMEPRAZOLE 20 MG CAP PO SCH ×2 (09:18→21:16)
[2020-07-16] MEDS: OCUVITE 1 TAB PO SCH (09:18)
[2020-07-16] MEDS: BUMETANIDE 1 MG TAB PO SCH ×2 (09:18→21:16)
[2020-07-16] MEDS: ASPIRIN 81 MG ENTERIC TAB PO SCH (09:19)
[2020-07-16] MEDS: VITAMIN B COMPLEX/VIT C CAP PO SCH (09:19)
[2020-07-16] MEDS: metFORMIN (GLUCOPHAGE) 500 MG TAB PO SCH ×2 (09:19→21:16)
--- NOTE | 2020-07-16 11:27 | IPNPDOC ---
PM&R Progress Note DATE OF SERVICE: Jul 16, 2020 Thermograph Operator Progress Note Subjective:Patient reporting he has no pain, but is having difficulty in therapy with mobility. He denies fever or chills, no new cough or diarrhea since being on IV antibitoics. REVIEW OF SYSTEMS: The following is a completed review of systems and has been reviewed. Review of systems otherwise unremarkable. PAIN: Patient self reports no pain. EYES: No recent vision changes. EARS, NOSE, & THROAT: No throat pain, or dysphagia, or rhinorrhea. CARDIOVASCULAR: Denies chest pain or palpitations. PULMONARY: Denies shortness of breath. GASTROINTESTINAL: Denies constipation/diarrhea. GENITOURINARY: Quiles MUSCULOSKELETAL: Stiffness, no new complaints NEUROLOGICAL: Parkinsons SKIN: intact PSYCHIATRIC: Mild Dementia All other review of systems found to be negative. PHYSICAL EXAMINATION: VITAL SIGNS: Please see below. GENERAL: Pleasant and cooperative, blank expression. HEENT: PERRL. Extraocular movements intact. Clear conjunctiva, no adenopathy or thyromegaly. Full cervical range of motion without tenderness or spasm. CARDIOVASCULAR: Regular rate and rhythm. No murmurs, rubs, or gallops. LUNGS: Clear to auscultation bilaterally. No wheezes. No rhonchi. ABDOMEN: Soft, nontender, nondistended. Positive bowel sounds. Normal active bowel sounds. NEUROLOGICAL: Alert and oriented to self. Cranial nerves II through XII intact. Sensation grossly intact. Reflexes 1 + and symmetric bilateral biceps, brachial radialis, jerks. EXTREMITIES: 5/5 disability services coordinator, elbow flexion, unable to fully assess knee extension, foot dorsiflexion, plantar flexion. 2+ cogwheeling on passive range of motion RUE SKIN: Intact LABORATORY DATA: Please see below. ASSESSMENT: 85-year-old diabetic gentleman with history of Parkinsons/Dementia who experienced a significant decline in function, found to have Klebsiella UTI admitted to ARU: PLAN: 1. Rehab- PT/OT advance gait and ADls, strengthen/stretch/maintain ROM all 4 limbs. Will include FOOD PREPARER for cognitive assessment update and suggested strategies and family education to enhance carryover of new learning. 2. Neuro- optimize parkinsons medication again once cognitively clears, hospitalist held for now, patient with encephaloapthy likely due to longstanding parkinsons with dementia in setting of UTI -dysphagia due to parkinsons, c/u mechanical soft diet 3. Cardiac- hx of CAD with Stents, c/u ASA -HTN c/u ARB -HLD- c/u Zocor 4. Resp -incentive spirometry, monitor for infection 5. Endo- hx of DM, c/u ISS and insulin 6. - UTI, Quiles, initially rxd with ceftriaxone now IV Meropenem stop day today, Blood Cx neg, afebrile, WBC elevated today, patient denies diarrhea, fever, respiratory symptoms, will recheck wbc tomorrow 7. GI- Hx GERD - PPI 8. DVT ppx- heparin 9. Dispo- TBD Allergies Coded Allergies: No Known Allergies (Unverified , 11/25/19) Vital Signs Vital Signs Date Time Temp Pulse Resp B/P (MAP) Pulse Ox O2 Delivery O2 Flow Rate FiO2 07/16/20 06:00 97.4 67 18 128/59 (82) 96 Room Air Laboratory Data CBC/BMP Laboratory Tests 07/16/20 06:55 Labs 24H Laboratory Tests 2 07/15/20 11:28: Bedside Glucose (Misc Panel) 172H 07/15/20 16:15: Bedside Glucose (Misc Panel) 99 07/15/20 19:51: Bedside Glucose (Misc Panel) 162H 07/16/20 05:48: Bedside Glucose (Misc Panel) 171H 07/16/20 06:55: Nucleated Red Blood Cells % (auto) 0.0 07/16/20 11:14: Bedside Glucose (Misc Panel) 293H Current Medications Current Medications Current Medications Medications (Trade) Dose Ordered Sig/Isa Route PRN Reason Start Time Stop Time Status Last Admin Dose Admin Aspirin (Ecotrin) 81 mg DAILY PO 07/13/20 09:00 07/16/20 09:19 Bumetanide (Bumex) 1 mg BID PO 07/12/20 21:00 07/16/20 09:18 Calcium Carbonate (Tums) 500 mg DAILY PRN PO INDIGESTION 07/12/20 20:45 Cancel Calcium/Vitamin D (Oscal D) 500 mg BID PO 07/12/20 21:00 07/16/20 09:18 Dextrose (Dextrose 50%) 25 ml ASDIRECTED PRN IV SEE LABEL COMMENTS 07/13/20 12:30 Docusate Sodium (Colace) 100 mg BID PO 07/12/20 21:00 07/15/20 20:46 Glucagon (Glucagon) 1 mg ASDIRECTED PRN SC SEE LABEL COMMENTS 07/13/20 12:30 Glucose (Glucose) 16 GM ASDIRECTED PRN PO SEE LABEL COMMENTS 07/13/20 12:30 Heparin Sodium (Porcine) (Heparin) 5,000 units Q8H SQ 07/13/20 14:00 07/16/20 05:45 Home Med (Med Rec Complete!) ASDIRECTED XX 07/12/20 20:15 07/12/20 20:13 DC Insulin Human Lispro (HumaLOG INSULIN) See Protocol Table AC SC 07/13/20 17:30 07/16/20 09:18 Insulin Human Lispro (HumaLOG INSULIN) See Protocol Table QHS SC 07/13/20 21:00 Levothyroxine Sodium (Synthroid) 125 mcg DAILY@0600 PO 07/13/20 06:00 07/16/20 05:45 Magnesium Oxide (Mag-Ox) 400 mg BID PO 07/12/20 21:00 07/16/20 09:18 Meropenem (Merrem) 1 gm Q8H IV 07/12/20 20:45 07/12/20 20:57 DC Meropenem 1 gm/IV Miscellaneous Supplies 50 ml @ 100 mls/hr Q8H IV 07/13/20 02:00 07/16/20 09:19 Metformin HCl (Glucophage) 500 mg BID PO 07/12/20 21:00 07/16/20 09:19 Multivitamins (Ocuvite(I-Bindu)) 1 tab DAILY PO 07/13/20 09:00 07/16/20 09:18 Omeprazole (PriLOSEC) 20 mg BID PO 07/12/20 21:00 07/16/20 09:18 Spironolactone (Aldactone) 12.5 mg DAILY PO 07/13/20 09:00 07/16/20 09:18 Vitamin B Complex/ Vitamin C (Therapeutic B Complex w/C) 1 cap DAILY PO 07/13/20 09:00 07/16/20 09:19 BIANCA VILLA MD Jul 16, 2020 11:27
--- NOTE | 2020-07-16 12:58 | IPNPDOC ---
Text Note Date of Service The patient was seen on 07/16/20. NOTE Patient is feeling better but still remains weak. Participating in therapy. PHYSICAL EXAMINATION: Constitutional: Sitting upright in chair having lunch and answering all questi ons appropriately no acute distress. ENT: Sclera are clear. Mucosa is dry. Respiratory: Lungs CTA bilaterally. No respiratory distress. No use of accessory muscles. Cardiovascular: RRR S1 and S2 are normal. No JVD Gastrointestinal: Abdomen is soft, non distended, non tender, BS present. Quiles in place. Musculoskeletal: No LE edema. Neurologic: No focal neurologic deficits, has some cogwheel rigidity Mental Status: Able to answer all questions appropriately alert and oriented 3 Skin: Warm, dry ASSESSMENT/PLAN 85 year old male with past medical history of Parkinson dementia, DM2, CHF, h ypothyroid, is brought in by son on July 10 due to increased confusion and weakness at home . He was admitted for acute encephalopathy on July 10 secondary to chronic indwelling Quiles catheter associated Klebsiella ESBL UTI. ESBL sensitive to IV meropenem which she was started on and will continue until July 16 for the last day. Patient was discharged on 07/12/2020 and admitted to the acute rehabilitation unit. 1: Chronic indwelling Quiles catheter associated Klebsiella ESBL UTI: Sensitive to IV meropenem. Continue IV meropenem for total of 5 days ending on July 16. 2: DM: ISS. Frequent Accu-Cheks. Hypoglycemic precautions. Carbohydrate consistent diet. 3: HFpEF: euvolemic on exam. Continue home meds with bumex . I/Os 5: Parkinson disease: Continue with carbidopa/levodopa which was restarted . 6: Hypothyroidism: continue levothyroxine. 7: Mild leucocytosis: Cont to monitor. no fever or any signs of SIRS Disposition as per primary VS,Fishbone, I+O VS, Fishbone, I+O Laboratory Tests 07/16/20 06:55 Vital Signs Date Time Temp Pulse Resp B/P (MAP) Pulse Ox O2 Delivery O2 Flow Rate FiO2 07/16/20 06:00 97.4 67 18 128/59 (82) 96 Room Air I&O- Last 24 Hours up to 6 AM 07/16/20 05:59 Intake Total 1290 ml Output Total 950 ml Balance 340 ml ALEXX RUBALCAVA MD Jul 16, 2020 12:58
[2020-07-16] MEDS: SINEMET 25-100 MG TAB PO SCH ×2 (13:06→17:50)
[2020-07-16 14:00] VITALS: BP 148/71
[2020-07-16 20:00] VITALS: BP 125/66
[2020-07-17] MEDS: MEROPENEM INJ 1 GM in IV 1 EA IV SCH (02:37)
[2020-07-17 06:00] VITALS: BP 130/68
[2020-07-17] MEDS: LEVOTHYROXINE 125MCG TABLET (0.125MG) PO SCH (06:06)
[2020-07-17] MEDS: HEPARIN SOD (PORCINE) 5000UNITS/ML 1ML VIAL/SYRINGE SQ SCH ×3 (06:06→21:10)
[2020-07-17 07:43] LABS: CALCIUM LEVEL 8.7 MG/DL (8.8-10.2); CREATININE FOR GFR 1.31 MG/DL (0.70-1.30); GLOMERULAR FILTRATION RATE 55.5 (>35); POTASSIUM SERUM 3.6 MEQ/L (3.5-5.1)
[2020-07-17] MEDS: HumaLOG INSULIN (NovoLOG) PER UNIT SC SCH ×4 (07:57→21:00)
[2020-07-17] MEDS: metFORMIN (GLUCOPHAGE) 500 MG TAB PO SCH ×2 (08:02→21:08)
[2020-07-17] MEDS: SPIRONOLACTONE 25 MG TAB PO SCH (08:03)
[2020-07-17] MEDS: OCUVITE 1 TAB PO SCH (08:03)
[2020-07-17] MEDS: BUMETANIDE 1 MG TAB PO SCH ×2 (08:03→21:09)
[2020-07-17] MEDS: CALCIUM/VITAMIN D 500 MG TAB PO SCH ×2 (08:05→21:08)
[2020-07-17] MEDS: DOCUSATE SODIUM 100MG CAPSULE PO SCH ×2 (08:05→21:08)
[2020-07-17] MEDS: VITAMIN B COMPLEX/VIT C CAP PO SCH (08:05)
[2020-07-17] MEDS: MAGNESIUM OXIDE 400 MG TAB (MAG-OX) PO SCH ×2 (08:05→21:08)
[2020-07-17] MEDS: ASPIRIN 81 MG ENTERIC TAB PO SCH (08:05)
[2020-07-17] MEDS: SINEMET 25-100 MG TAB PO SCH ×3 (08:05→15:37)
[2020-07-17] MEDS: OMEPRAZOLE 20 MG CAP PO SCH ×2 (08:05→21:07)
--- NOTE | 2020-07-17 12:43 | IPNPDOC ---
PM&R Progress Note DATE OF SERVICE: Jul 17, 2020 Bank[employer] Management Consulting Manager Progress Note Subjective: Patient seen sleeping in his room, able to be aroused and said he felt ok, but was tired. He agreed to IVF as he appeared dehydrated. REVIEW OF SYSTEMS: The following is a completed review of systems and has been reviewed. Review of systems otherwise unremarkable. PAIN: Patient self reports no pain. EYES: No recent vision changes. EARS, NOSE, & THROAT: No throat pain, or dysphagia, or rhinorrhea. CARDIOVASCULAR: Denies chest pain or palpitations. PULMONARY: Denies shortness of breath. GASTROINTESTINAL: Denies constipation/diarrhea. GENITOURINARY: Quiles MUSCULOSKELETAL: Stiffness, no new complaints NEUROLOGICAL: Parkinsons SKIN: intact PSYCHIATRIC: Mild Dementia All other review of systems found to be negative. PHYSICAL EXAMINATION: VITAL SIGNS: Please see below. GENERAL: Pleasant and cooperative, blank expression. HEENT: PERRL. Extraocular movements intact. Clear conjunctiva, no adenopathy or thyromegaly. Full cervical range of motion without tenderness or spasm. +dry tongue CARDIOVASCULAR: Regular rate and rhythm. No murmurs, rubs, or gallops. LUNGS: Clear to auscultation bilaterally. No wheezes. No rhonchi. ABDOMEN: Soft, nontender, nondistended. Positive bowel sounds. Normal active bowel sounds. NEUROLOGICAL: Alert and oriented to self. Cranial nerves II through XII intact. Sensation grossly intact. Reflexes 1 + and symmetric bilateral biceps, brachial radialis, jerks. EXTREMITIES: 5/5 field worker, elbow flexion, unable to fully assess knee extension, foot dorsiflexion, plantar flexion. 2+ cogwheeling on passive range of motion RUE SKIN: Intact LABORATORY DATA: Please see below. ASSESSMENT: 85-year-old diabetic gentleman with history of Parkinsons/Dementia who experienced a significant decline in function, found to have Klebsiella UTI admitted to ARU: PLAN: 1. Rehab- PT/OT advance gait and ADls, strengthen/stretch/maintain ROM all 4 limbs. Will include GRADER PATROL for cognitive assessment update and suggested strategies and family education to enhance carryover of new learning. 2. Neuro- optimize parkinsons medication again once cognitively clears, hospitalist held for now, patient with encephaloapthy likely due to longstanding parkinsons with dementia in setting of UTI -dysphagia due to parkinsons, c/u mechanical soft diet 3. 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 Resp -incentive spirometry, monitor for infection 5. Endo- hx of DM, c/u ISS and insulin 6. - UTI, Quiles, initially rxd with ceftriaxone now s/p IV Meropenem, Blood Cx neg, afebrile, WBC elevated today, patient denies diarrhea, fever, respiratory symptoms, will recheck wbc tomorrow 7. GI- Hx GERD - PPI 8. DVT ppx- heparin 9. Renal- prerenal azotemia likely due to poor po intake, will hold spironolactone and give gentle IVF patient currently on Bumex 9. Dispo- TBD Allergies Coded Allergies: No Known Allergies (Unverified , 11/25/19) Vital Signs Vital Signs Date Time Temp Pulse Resp B/P (MAP) Pulse Ox O2 Delivery O2 Flow Rate FiO2 07/17/20 06:00 97.5 63 18 130/68 (88) 96 Room Air Laboratory Data CBC/BMP Laboratory Tests 07/17/20 07:04 Labs 24H Laboratory Tests 2 07/16/20 16:28: Bedside Glucose (Misc Panel) 218H 07/16/20 20:26: Bedside Glucose (Misc Panel) 164H 07/17/20 06:45: Bedside Glucose (Misc Panel) 233H 07/17/20 07:04: Anion Gap 6L, Glomerular Filtration Rate 55.5, Calcium Level 8.7L 07/17/20 11:31: Bedside Glucose (Misc Panel) 217H Current Medications Current Medications Current Medications Medications (Trade) Dose Ordered Sig/Isa Route PRN Reason Start Time Stop Time Status Last Admin Dose Admin Aspirin (Ecotrin) 81 mg DAILY PO 07/13/20 09:00 07/17/20 08:05 Bumetanide (Bumex) 1 mg BID PO 07/12/20 21:00 07/17/20 08:03 Calcium Carbonate (Tums) 500 mg DAILY PRN PO INDIGESTION 07/12/20 20:45 Cancel Calcium/Vitamin D (Oscal D) 500 mg BID PO 07/12/20 21:00 07/17/20 08:05 Carbidopa/Levodopa (Sinemet 25/100) 2 tab TID@0800,1200,1600 PO 07/16/20 12:00 07/17/20 08:05 Dextrose (Dextrose 50%) 25 ml ASDIRECTED PRN IV SEE LABEL COMMENTS 07/13/20 12:30 Docusate Sodium (Colace) 100 mg BID PO 07/12/20 21:00 07/17/20 08:05 Glucagon (Glucagon) 1 mg ASDIRECTED PRN SC SEE LABEL COMMENTS 07/13/20 12:30 Glucose (Glucose) 16 GM ASDIRECTED PRN PO SEE LABEL COMMENTS 07/13/20 12:30 Heparin Sodium (Porcine) (Heparin) 5,000 units Q8H SQ 07/13/20 14:00 07/17/20 06:06 Home Med (Med Rec Complete!) ASDIRECTED XX 07/12/20 20:15 07/12/20 20:13 DC Insulin Human Lispro (HumaLOG INSULIN) See Protocol Table AC SC 07/13/20 17:30 07/17/20 07:57 Insulin Human Lispro (HumaLOG INSULIN) See Protocol Table QHS SC 07/13/20 21:00 Levothyroxine Sodium (Synthroid) 125 mcg DAILY@0600 PO 07/13/20 06:00 07/17/20 06:06 Magnesium Oxide (Mag-Ox) 400 mg BID PO 07/12/20 21:00 07/17/20 08:05 Meropenem (Merrem) 1 gm Q8H IV 07/12/20 20:45 07/12/20 20:57 DC Meropenem 1 gm/IV Miscellaneous Supplies 50 ml @ 100 mls/hr Q8H IV 07/13/20 02:00 07/17/20 08:07 DC 07/17/20 02:37 Metformin HCl (Glucophage) 500 mg BID PO 07/12/20 21:00 07/17/20 08:02 Miscellaneous (Unresolved Clarification Entry) SEE LABEL COMMENTS DAILY XX 07/17/20 09:00 07/17/20 08:10 DC Multivitamins (Ocuvite(I-Bindu)) 1 tab DAILY PO 07/13/20 09:00 07/17/20 08:03 Omeprazole (PriLOSEC) 20 mg BID PO 07/12/20 21:00 07/17/20 08:05 Spironolactone (Aldactone) 12.5 mg DAILY PO 07/13/20 09:00 07/17/20 09:38 DC 07/17/20 08:03 Vitamin B Complex/ Vitamin C (Therapeutic B Complex w/C) 1 cap DAILY PO 07/13/20 09:00 07/17/20 08:05 BIANCA VILLA MD Jul 17, 2020 12:43
[2020-07-17] MEDS ORDERED: NS 1,000 ML IV ONE (12:45)
--- NOTE | 2020-07-17 13:45 | IPNPDOC ---
Text Note Date of Service The patient was seen on 07/17/20. NOTE Patient is feeling better but still remains weak. Participating in therapy. PHYSICAL EXAMINATION: Constitutional: Sitting upright in chair having lunch and answering all questi ons appropriately no acute distress. ENT: Sclera are clear. Mucosa is dry. Respiratory: Lungs CTA bilaterally. No respiratory distress. No use of accessory muscles. Cardiovascular: RRR S1 and S2 are normal. No JVD Gastrointestinal: Abdomen is soft, non distended, non tender, BS present. Quiles in place. Musculoskeletal: No LE edema. Neurologic: No focal neurologic deficits, has some cogwheel rigidity Mental Status: Able to answer all questions appropriately alert and oriented 3 Skin: Warm, dry ASSESSMENT/PLAN 85 year old male with past medical history of Parkinson dementia, DM2, CHF, h ypothyroid, is brought in by son on July 10 due to increased confusion and weakness at home . He was admitted for acute encephalopathy on July 10 secondary to chronic indwelling Quiles catheter associated Klebsiella ESBL UTI. ESBL sensitive to IV meropenem which she was started on and will continue until July 16 for the last day. Patient was discharged on 07/12/2020 and admitted to the acute rehabilitation unit. 1: Chronic indwelling Quiles catheter associated Klebsiella ESBL UTI: Sensitive to IV meropenem. Abx treatment finished. 2: DM: ISS. Frequent Accu-Cheks. Hypoglycemic precautions. Carbohydrate consistent diet. 3: HFpEF: Slightly dehydrated on exam. Bumex changed to once daily from BID and aldectone dced. 5: Parkinson disease: Continue with carbidopa/levodopa which was restarted . 6: Hypothyroidism: continue levothyroxine. 7: Mild leucocytosis: Cont to monitor. no fever or any signs of SIRS Disposition as per primary VS,Fishbone, I+O VS, Fishbone, I+O Laboratory Tests 07/17/20 07:04 Vital Signs Date Time Temp Pulse Resp B/P (MAP) Pulse Ox O2 Delivery O2 Flow Rate FiO2 07/17/20 06:00 97.5 63 18 130/68 (88) 96 Room Air I&O- Last 24 Hours up to 6 AM 07/17/20 06:00 Intake Total 760 ml Output Total 400 ml Balance 360 ml ALEXX RUBALCAVA MD Jul 17, 2020 13:45
[2020-07-17 14:00] VITALS: BP 107/60
[2020-07-17] MEDS: REMEDY PHYTOPLEX Z-GUARD PASTE 113GM TUBE (FROM STOREROOM PRODUCT) TOP SCH ×2 (15:37→21:10)
[2020-07-17 16:28] LABS: BASO # 0.1 10^3/uL (0.0-0.2); BASO % 0.6 % (0.0-1.0); EOS # 0.4 10^3/uL (0.0-0.5); EOS % 4.6 % (0.0-3.0); HEMATOCRIT 34.3 % (42.0-52.0); HEMOGLOBIN 10.5 g/dl (13.5-17.5); LYMPH % 21.7 % (24.0-44.0); MEAN CORPUSCULAR HEMOGLOBIN 27.5 pg (27.0-33.0); MEAN CORPUSCULAR HGB CONC 30.6 g/dl (32.0-36.5); MEAN CORPUSCULAR VOLUME 89.8 fl (80.0-96.0); MONO # 0.8 10^3/uL (0.0-0.8); NEUTROPHILS % 64.3 % (36.0-66.0); PLATELET COUNT, AUTOMATED 361 10^3/uL (150-450); RED BLOOD COUNT 3.82 10^6/uL (4.30-6.10); WHITE BLOOD COUNT 9.3 10^3/uL (4.0-10.0)
[2020-07-17 20:00] VITALS: BP 117/58
[2020-07-17] MEDS: SINEMET**CR** 25/100 TABCR PO SCH (21:08)
[2020-07-17] MEDS: MEMANTINE 5MG TABLET (NAMENDA) PO SCH (21:08)
[2020-07-18] MEDS: HEPARIN SOD (PORCINE) 5000UNITS/ML 1ML VIAL/SYRINGE SQ SCH ×3 (05:08→21:32)
[2020-07-18] MEDS: LEVOTHYROXINE 125MCG TABLET (0.125MG) PO SCH (05:08)
[2020-07-18 06:00] VITALS: BP 106/55
[2020-07-18 06:43] LABS: BASO # 0.1 10^3/uL (0.0-0.2); BASO % 0.7 % (0.0-1.0); EOS # 0.4 10^3/uL (0.0-0.5); EOS % 4.7 % (0.0-3.0); HEMATOCRIT 30.7 % (42.0-52.0); HEMOGLOBIN 9.4 g/dl (13.5-17.5); LYMPH % 22.9 % (24.0-44.0); MEAN CORPUSCULAR HEMOGLOBIN 27.2 pg (27.0-33.0); MEAN CORPUSCULAR HGB CONC 30.6 g/dl (32.0-36.5); MONO # 0.7 10^3/uL (0.0-0.8); MONO % 8.2 % (0.0-5.0); NEUTROPHILS # 5.4 10^3/uL (1.5-8.5); NEUTROPHILS % 62.7 % (36.0-66.0); PLATELET COUNT, AUTOMATED 361 10^3/uL (150-450); RED BLOOD COUNT 3.45 10^6/uL (4.30-6.10); WHITE BLOOD COUNT 8.6 10^3/uL (4.0-10.0)
[2020-07-18 07:04] LABS: CALCIUM LEVEL 8.5 MG/DL (8.8-10.2); CREATININE FOR GFR 1.23 MG/DL (0.70-1.30); GLOMERULAR FILTRATION RATE 59.7 (>35); POTASSIUM SERUM 3.8 MEQ/L (3.5-5.1)
[2020-07-18] MEDS: VITAMIN B COMPLEX/VIT C CAP PO SCH (08:46)
[2020-07-18] MEDS: MAGNESIUM OXIDE 400 MG TAB (MAG-OX) PO SCH ×2 (08:46→21:33)
[2020-07-18] MEDS: SINEMET 25-100 MG TAB PO SCH ×3 (08:46→17:29)
[2020-07-18] MEDS: ASPIRIN 81 MG ENTERIC TAB PO SCH (08:46)
[2020-07-18] MEDS: DOCUSATE SODIUM 100MG CAPSULE PO SCH ×3 (08:46→21:32)
[2020-07-18] MEDS: HumaLOG INSULIN (NovoLOG) PER UNIT SC SCH ×4 (08:46→21:00)
[2020-07-18] MEDS: CALCIUM/VITAMIN D 500 MG TAB PO SCH ×2 (08:46→21:32)
[2020-07-18] MEDS: MEMANTINE 5MG TABLET (NAMENDA) PO SCH ×2 (08:47→21:33)
[2020-07-18] MEDS: BUMETANIDE 1 MG TAB PO SCH (08:47)
[2020-07-18] MEDS: OMEPRAZOLE 20 MG CAP PO SCH ×2 (08:47→21:32)
[2020-07-18] MEDS: OCUVITE 1 TAB PO SCH (08:47)
[2020-07-18] MEDS: REMEDY PHYTOPLEX Z-GUARD PASTE 113GM TUBE (FROM STOREROOM PRODUCT) TOP SCH ×3 (08:47→21:35)
[2020-07-18] MEDS: metFORMIN (GLUCOPHAGE) 500 MG TAB PO SCH ×2 (08:47→21:33)
[2020-07-18] MEDS ORDERED: NS 1,000 ML IV ONE (10:00)
[2020-07-18] MEDS ORDERED: SENNA 8.6 MG TAB (SENOKOT) PO PRN (11:00)
[2020-07-18] MEDS ORDERED: FLEET ENEMA PR PRN (11:00)
--- NOTE | 2020-07-18 12:10 | IPNPDOC ---
PM&R Progress Note DATE OF SERVICE: Jul 18, 2020 Clay Carman Progress Note Subjective: Patient seen sitting up in his chair, able to converse more than yesterday and follow commands. REVIEW OF SYSTEMS: The following is a completed review of systems and has been reviewed. Review of systems otherwise unremarkable. PAIN: Patient self reports no pain. EYES: No recent vision changes. EARS, NOSE, & THROAT: No throat pain, or dysphagia, or rhinorrhea. CARDIOVASCULAR: Denies chest pain or palpitations. PULMONARY: Denies shortness of breath. GASTROINTESTINAL: Denies constipation/diarrhea. GENITOURINARY: Quiles MUSCULOSKELETAL: Stiffness, no new complaints NEUROLOGICAL: Parkinsons SKIN: intact PSYCHIATRIC: Mild Dementia All other review of systems found to be negative. PHYSICAL EXAMINATION: VITAL SIGNS: Please see below. GENERAL: Pleasant and cooperative, masked face improved today HEENT: PERRL. Extraocular movements intact. Clear conjunctiva, no adenopathy or thyromegaly. Full cervical range of motion without tenderness or spasm. -moist tongue CARDIOVASCULAR: Regular rate and rhythm. No murmurs, rubs, or gallops. LUNGS: Clear to auscultation bilaterally. No wheezes. No rhonchi. ABDOMEN: Soft, nontender, nondistended. Positive bowel sounds. Normal active bowel sounds. NEUROLOGICAL: Alert and oriented to self, able to follow commands, Cranial nerves II through XII intact. Sensation grossly intact. Reflexes 1 + and symmetric bilateral biceps, brachial radialis, jerks. EXTREMITIES: 5/5 script girl, elbow flexion, unable to fully assess knee extension, foot dorsiflexion, plantar flexion. 2+ cogwheeling on passive range of motion RUE SKIN: Intact LABORATORY DATA: Please see below. ASSESSMENT: 85-year-old diabetic gentleman with history of Parkinsons/Dementia who experienced a significant decline in function, found to have Klebsiella UTI admitted to ARU: PLAN: 1. Rehab- PT/OT advance gait and ADls, strengthen/stretch/maintain ROM all 4 limbs. Will include CALL WORKER PERSON for cognitive assessment update and suggested strategies and family education to enhance carryover of new learning. 2. Neuro- patient's parkinson's medications discontinued on inpatient setting due to concern for its contribution to encephalopathy, restarted while on ARU at gradually increasing dose, will increase back to home full dosing today as pa tient clinically improving with reinstitution cognitively, but still having difficulty with movement and not back to baseline likely due to lack of Sinemet and deconditioning which should hopefully improve with medications and therapy- discussed case with son today at bedside who is concerned that his father's medications were changed, but has agreed to let father stay on ARU until Thursday to see if he improves with current regimen -dysphagia due to parkinsons, c/u mechanical soft diet 3. Cardiac- hx of CAD with Stents, c/u ASA -HTN c/u Bumex, holding Spironolactone due to increasing BUN/Lime Vat Tender-improving s/p IVF -HLD- c/u Zocor 4. Resp -incentive spirometry, monitor for infection 5. Endo- hx of DM, c/u ISS and insulin 6. - UTI, Quiles, initially rxd with ceftriaxone now s/p IV Meropenem, Blood Cx neg, afebrile, leukocytosis resolved, respiratory panel negative (ordered 07-17-20 due to patient reportedly sneezing more in therapy) 7. GI- Hx GERD - PPI -bowel meds increased today for constipation 8. DVT ppx- heparin 9. Renal- prerenal azotemia likely due to poor po intake improving sp 1 L IVF, will give a second liter today, order for q2h nursing to offer liquid/food while awake , c/u to hold spironolactone, patient currently on Bumex 9. Dispo- TBD Allergies Coded Allergies: No Known Allergies (Unverified , 11/25/19) Vital Signs Vital Signs Date Time Temp Pulse Resp B/P (MAP) Pulse Ox O2 Delivery O2 Flow Rate FiO2 07/18/20 06:00 97.8 72 18 106/55 (72) 95 Room Air Laboratory Data CBC/BMP Laboratory Tests 07/17/20 16:01 07/18/20 06:07 Labs 24H Laboratory Tests 2 07/17/20 16:01: Immature Granulocyte % (Auto) 0.8, Neutrophils (%) (Auto) 64.3, Lymphocytes (%) (Auto) 21.7L, Monocytes (%) (Auto) 8.0H, Eosinophils (%) (Auto) 4.6H, Basophils (%) (Auto) 0.6, Neutrophils # (Auto) 6.0, Lymphocytes # (Auto) 2.0, Monocytes # (Auto) 0.8, Eosinophils # (Auto) 0.4, Basophils # (Auto) 0.1, Nucleated Red Blood Cells % (auto) 0.0 07/17/20 16:46: Bedside Glucose (Misc Panel) 212H 07/17/20 20:20: Bedside Glucose (Misc Panel) 191H 07/18/20 05:29: Bedside Glucose (Misc Panel) 190H 07/18/20 06:07: Immature Granulocyte % (Auto) 0.8, Neutrophils (%) (Auto) 62.7, Lymphocytes (%) (Auto) 22.9L, Monocytes (%) (Auto) 8.2H, Eosinophils (%) (Auto) 4.7H, Basophils (%) (Auto) 0.7, Neutrophils # (Auto) 5.4, Lymphocytes # (Auto) 2.0, Monocytes # (Auto) 0.7, Eosinophils # (Auto) 0.4, Basophils # (Auto) 0.1, Nucleated Red Blood Cells % (auto) 0.0, Anion Gap 6L, Glomerular Filtration Rate 59.7, Calcium Level 8.5L Microbiology Microbiology 07/18/20 Respiratory Virus Panel (PCR) (VALDO) - Final, Complete Current Medications Current Medications Current Medications Medications (Trade) Dose Ordered Sig/Isa Route PRN Reason Start Time Stop Time Status Last Admin Dose Admin Aspirin (Ecotrin) 81 mg DAILY PO 07/13/20 09:00 07/18/20 08:46 Bisacodyl (Dulcolax Tab) 5 mg DAILY PO 07/18/20 09:00 Bumetanide (Bumex) 1 mg BID PO 07/12/20 21:00 07/17/20 23:59 DC 07/17/20 21:09 Bumetanide (Bumex) 1 mg DAILY PO 07/18/20 09:00 07/18/20 08:47 Calcium Carbonate (Tums) 500 mg DAILY PRN PO INDIGESTION 07/12/20 20:45 Cancel Calcium/Vitamin D (Oscal D) 500 mg BID PO 07/12/20 21:00 07/18/20 08:46 Carbidopa/Levodopa (Sinemet 25/100) 2 tab TID@0800,1200,1600 PO 07/16/20 12:00 07/18/20 11:21 DC 07/18/20 08:46 Carbidopa/Levodopa (Sinemet 25/100) 2.5 tab TID@0800,1200,1600 PO 07/18/20 12:00 Carbidopa/Levodopa (Sinemet Cr 25/ 100) 1 tab QHS PO 07/17/20 21:00 07/17/20 21:08 Dextrose (Dextrose 50%) 25 ml ASDIRECTED PRN IV SEE LABEL COMMENTS 07/13/20 12:30 Docusate Sodium (Colace) 100 mg BID PO 07/12/20 21:00 07/18/20 10:49 DC 07/18/20 08:46 Docusate Sodium (Colace) 100 mg TID PO 07/18/20 16:00 Donepezil HCl (AriCEPT) 5 mg QHS PO 07/18/20 21:00 Glucagon (Glucagon) 1 mg ASDIRECTED PRN SC SEE LABEL COMMENTS 07/13/20 12:30 Glucose (Glucose) 16 GM ASDIRECTED PRN PO SEE LABEL COMMENTS 07/13/20 12:30 Heparin Sodium (Porcine) (Heparin) 5,000 units Q8H SQ 07/13/20 14:00 07/18/20 05:08 Home Med (Med Rec Complete!) ASDIRECTED XX 07/12/20 20:15 07/12/20 20:13 DC Insulin Human Lispro (HumaLOG INSULIN) See Protocol Table AC SC 07/13/20 17:30 07/18/20 08:46 Insulin Human Lispro (HumaLOG INSULIN) See Protocol Table QHS SC 07/13/20 21:00 Levothyroxine Sodium (Synthroid) 125 mcg DAILY@0600 PO 07/13/20 06:00 07/18/20 05:08 Magnesium Oxide (Mag-Ox) 400 mg BID PO 07/12/20 21:00 07/18/20 08:46 Memantine (Namenda) 5 mg BID PO 07/17/20 21:00 07/18/20 11:21 DC 07/18/20 08:47 Memantine (Namenda) 10 mg BID PO 07/18/20 21:00 Meropenem (Merrem) 1 gm Q8H IV 07/12/20 20:45 07/12/20 20:57 DC Meropenem 1 gm/IV Miscellaneous Supplies 50 ml @ 100 mls/hr Q8H IV 07/13/20 02:00 07/17/20 08:07 DC 07/17/20 02:37 Metformin HCl (Glucophage) 500 mg BID PO 07/12/20 21:00 07/18/20 08:47 Miscellaneous (Unresolved Clarification Entry) SEE LABEL COMMENTS DAILY XX 07/17/20 09:00 07/17/20 08:10 DC Multivitamins (Ocuvite(I-Bindu)) 1 tab DAILY PO 07/13/20 09:00 07/18/20 08:47 Omeprazole (PriLOSEC) 20 mg BID PO 07/12/20 21:00 07/18/20 08:47 Senna (Senokot) 1 tab QHSP PRN PO CONSTIPATION 07/18/20 11:00 Sodium Biphosphate/ Sodium Phosphate (Fleet Enema) 1 ea DAILYPRN PRN [place] CONSTIPATION 07/18/20 11:00 Spironolactone (Aldactone) 12.5 mg DAILY PO 07/13/20 09:00 07/17/20 09:38 DC 07/17/20 08:03 Vitamin B Complex/ Vitamin C (Therapeutic B Complex w/C) 1 cap DAILY PO 07/13/20 09:00 07/18/20 08:46 BIANCA VILLA MD Jul 18, 2020 12:10
[2020-07-18] MEDS: BISACODYL 5 MG TAB PO SCH (12:50)
[2020-07-18 14:00] VITALS: BP 137/68
[2020-07-18 20:30] VITALS: BP 139/72
[2020-07-18] MEDS: DONEPEZIL 5 MG TAB PO SCH (21:32)
[2020-07-18] MEDS: SINEMET**CR** 25/100 TABCR PO SCH (21:33)
[2020-07-19] MEDS: LEVOTHYROXINE 125MCG TABLET (0.125MG) PO SCH (05:56)
[2020-07-19] MEDS: HEPARIN SOD (PORCINE) 5000UNITS/ML 1ML VIAL/SYRINGE SQ SCH ×3 (05:57→20:10)
[2020-07-19 06:00] VITALS: BP 134/61
[2020-07-19 07:44] LABS: HEMATOCRIT 30.5 % (42.0-52.0); HEMOGLOBIN 9.3 g/dl (13.5-17.5); MEAN CORPUSCULAR HEMOGLOBIN 27.5 pg (27.0-33.0); MEAN CORPUSCULAR HGB CONC 30.5 g/dl (32.0-36.5); MEAN CORPUSCULAR VOLUME 90.2 fl (80.0-96.0); PLATELET COUNT, AUTOMATED 377 10^3/uL (150-450); RED BLOOD COUNT 3.38 10^6/uL (4.30-6.10); WHITE BLOOD COUNT 8.4 10^3/uL (4.0-10.0)
[2020-07-19 08:14] LABS: BLOOD UREA NITROGEN 24 MG/DL (7-18); CALCIUM LEVEL 8.4 MG/DL (8.8-10.2); CARBON DIOXIDE LEVEL 29 MEQ/L (21-32); CHLORIDE LEVEL 106 MEQ/L (98-107); CREATININE FOR GFR 1.07 MG/DL (0.70-1.30); GLOMERULAR FILTRATION RATE > 60.0 (>35); GLUCOSE, FASTING 184 MG/DL (70-100); POTASSIUM SERUM 4.2 MEQ/L (3.5-5.1); SODIUM LEVEL 138 MEQ/L (136-145)
[2020-07-19] MEDS: SINEMET 25-100 MG TAB PO SCH ×3 (08:47→17:22)
[2020-07-19] MEDS: VITAMIN B COMPLEX/VIT C CAP PO SCH (08:47)
[2020-07-19] MEDS: metFORMIN (GLUCOPHAGE) 500 MG TAB PO SCH ×2 (08:48→20:10)
[2020-07-19] MEDS: DOCUSATE SODIUM 100MG CAPSULE PO SCH ×3 (08:48→20:10)
[2020-07-19] MEDS: OMEPRAZOLE 20 MG CAP PO SCH ×2 (08:48→20:11)
[2020-07-19] MEDS: ASPIRIN 81 MG ENTERIC TAB PO SCH (08:48)
[2020-07-19] MEDS: OCUVITE 1 TAB PO SCH (08:48)
[2020-07-19] MEDS: BUMETANIDE 1 MG TAB PO SCH (08:48)
[2020-07-19] MEDS: HumaLOG INSULIN (NovoLOG) PER UNIT SC SCH ×4 (08:48→20:11)
[2020-07-19] MEDS: BISACODYL 5 MG TAB PO SCH (08:49)
[2020-07-19] MEDS: CALCIUM/VITAMIN D 500 MG TAB PO SCH ×2 (08:49→20:11)
[2020-07-19] MEDS: MAGNESIUM OXIDE 400 MG TAB (MAG-OX) PO SCH ×2 (08:49→20:10)
[2020-07-19] MEDS: MEMANTINE 5MG TABLET (NAMENDA) PO SCH ×2 (08:49→20:11)
[2020-07-19] MEDS: REMEDY PHYTOPLEX Z-GUARD PASTE 113GM TUBE (FROM STOREROOM PRODUCT) TOP SCH ×3 (08:50→20:11)
--- NOTE | 2020-07-19 09:50 | IPNPDOC ---
PM&R Progress Note DATE OF SERVICE: Jul 19, 2020 [employer] Progress Note Subjective: Patient seen lying in bed stating he thinks he should have a bowel movement and agrees to trying an enema later today. He states he feels a little better than yesterday. REVIEW OF SYSTEMS: The following is a completed review of systems and has been reviewed. Review of systems otherwise unremarkable. PAIN: Patient self reports no pain. EYES: No recent vision changes. EARS, NOSE, & THROAT: No throat pain, or dysphagia, or rhinorrhea. CARDIOVASCULAR: Denies chest pain or palpitations. PULMONARY: Denies shortness of breath. GASTROINTESTINAL: +constipation GENITOURINARY: Quiles MUSCULOSKELETAL: Stiffness NEUROLOGICAL: Parkinsons SKIN: intact PSYCHIATRIC: Mild Dementia All other review of systems found to be negative. PHYSICAL EXAMINATION: VITAL SIGNS: Please see below. GENERAL: Pleasant and cooperative, masked face improved today HEENT: PERRL. Extraocular movements intact. Clear conjunctiva, no adenopathy or thyromegaly. Full cervical range of motion without tenderness or spasm. -moist tongue CARDIOVASCULAR: Regular rate and rhythm. No murmurs, rubs, or gallops. LUNGS: Clear to auscultation bilaterally. No wheezes. No rhonchi. ABDOMEN: Soft, nontender, nondistended. Positive bowel sounds. Normal active bowel sounds. NEUROLOGICAL: Alert and oriented to self, able to follow commands, Cranial nerves II through XII intact. Sensation grossly intact. Reflexes 1 + and symmetric bilateral biceps, brachial radialis, jerks. EXTREMITIES: 5/5 kiln tester, elbow flexion, unable to fully assess knee extension, foot dorsiflexion, plantar flexion. 2+ cogwheeling on passive range of motion RUE SKIN: Intact LABORATORY DATA: Please see below. ASSESSMENT: 85-year-old diabetic gentleman with history of Parkinsons/Dementia who experienced a significant decline in function, found to have Klebsiella UTI admitted to ARU: PLAN: 1. Rehab- PT/OT advance gait and ADls, strengthen/stretch/maintain ROM all 4 limbs. Will include COUNSELLORS for cognitive assessment update and suggested strategies and family education to enhance carryover of new learning. 2. Neuro- patient's parkinson's medications discontinued on inpatient setting due to concern for its contribution to encephalopathy, restarted while on ARU at gradually increasing dose, will increase back to home full dosing 07-18-20 as patient clinically improving with reinstitution cognitively, but still having difficulty with movement and not back to baseline likely due to lack of Sinemet and deconditioning which should hopefully improve with medications and therapy- discussed case with son 07-18-20 at bedside who is concerned that his father's medications were changed, but has agreed to let father stay on ARU until Thursday to see if he improves with current regimen -dysphagia due to parkinsons, c/u mechanical soft diet 3. 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 Resp -incentive spirometry, monitor for infection 5. Endo- hx of DM, c/u ISS and insulin 6. - UTI, Quiles, initially rxd with ceftriaxone now s/p IV Meropenem, Blood Cx neg, afebrile, leukocytosis resolved, respiratory panel negative (ordered 07-17-20 due to patient reportedly sneezing more in therapy) 7. GI- Hx GERD - PPI -bowel meds increased for constipation, fleet enema ordered for today and patient is aware, per nursing he did have BM on 07-15-20 which was not documented 8. DVT ppx- heparin 9. Renal- prerenal azotemia improved s/p 2 L IVF, c/u frequent offering of liquids to help with dehydration, spironolactone still on hold 9. Dispo- Likely to home 07-20-20 with son who has asked to take home his father prior to his anticipated d/c date, pending family training Allergies Coded Allergies: No Known Allergies (Unverified , 11/25/19) Vital Signs Vital Signs Date Time Temp Pulse Resp B/P (MAP) Pulse Ox O2 Delivery O2 Flow Rate FiO2 07/19/20 06:00 97.5 66 18 134/61 (85) 94 Room Air Laboratory Data CBC/BMP Laboratory Tests 07/19/20 07:24 Labs 24H Laboratory Tests 2 07/18/20 12:04: Bedside Glucose (Misc Panel) 192H 07/18/20 16:24: Bedside Glucose (Misc Panel) 148H 07/18/20 19:37: Bedside Glucose (Misc Panel) 186H 07/19/20 05:21: Bedside Glucose (Misc Panel) 153H 07/19/20 07:24: Nucleated Red Blood Cells % (auto) 0.0, Anion Gap 3L, Glomerular Filtration Rate > 60.0, Calcium Level 8.4L Microbiology Microbiology 07/18/20 Respiratory Virus Panel (PCR) (VALDO) - Final, Complete Current Medications Current Medications Current Medications Medications (Trade) Dose Ordered Sig/Isa Route PRN Reason Start Time Stop Time Status Last Admin Dose Admin Aspirin (Ecotrin) 81 mg DAILY PO 07/13/20 09:00 07/19/20 08:48 Bisacodyl (Dulcolax Tab) 5 mg DAILY PO 07/18/20 09:00 07/19/20 08:49 Bumetanide (Bumex) 1 mg BID PO 07/12/20 21:00 07/17/20 23:59 DC 07/17/20 21:09 Bumetanide (Bumex) 1 mg DAILY PO 07/18/20 09:00 07/19/20 08:48 Calcium Carbonate (Tums) 500 mg DAILY PRN PO INDIGESTION 07/12/20 20:45 Cancel Calcium/Vitamin D (Oscal D) 500 mg BID PO 07/12/20 21:00 07/19/20 08:49 Carbidopa/Levodopa (Sinemet 25/100) 2 tab TID@0800,1200,1600 PO 07/16/20 12:00 07/18/20 11:21 DC 07/18/20 08:46 Carbidopa/Levodopa (Sinemet 25/100) 2.5 tab TID@0800,1200,1600 PO 07/18/20 12:00 07/19/20 08:47 Carbidopa/Levodopa (Sinemet Cr 25/ 100) 1 tab QHS PO 07/17/20 21:00 07/18/20 21:33 Dextrose (Dextrose 50%) 25 ml ASDIRECTED PRN IV SEE LABEL COMMENTS 07/13/20 12:30 Docusate Sodium (Colace) 100 mg BID PO 07/12/20 21:00 07/18/20 10:49 DC 07/18/20 08:46 Docusate Sodium (Colace) 100 mg TID PO 07/18/20 16:00 07/19/20 08:48 Donepezil HCl (AriCEPT) 5 mg QHS PO 07/18/20 21:00 07/18/20 21:32 Glucagon (Glucagon) 1 mg ASDIRECTED PRN SC SEE LABEL COMMENTS 07/13/20 12:30 Glucose (Glucose) 16 GM ASDIRECTED PRN PO SEE LABEL COMMENTS 07/13/20 12:30 Heparin Sodium (Porcine) (Heparin) 5,000 units Q8H SQ 07/13/20 14:00 07/19/20 05:57 Home Med (Med Rec Complete!) ASDIRECTED XX 07/12/20 20:15 07/12/20 20:13 DC Insulin Human Lispro (HumaLOG INSULIN) See Protocol Table AC SC 07/13/20 17:30 07/19/20 08:48 Insulin Human Lispro (HumaLOG INSULIN) See Protocol Table QHS SC 07/13/20 21:00 Levothyroxine Sodium (Synthroid) 125 mcg DAILY@0600 PO 07/13/20 06:00 07/19/20 05:56 Magnesium Oxide (Mag-Ox) 400 mg BID PO 07/12/20 21:00 07/19/20 08:49 Memantine (Namenda) 5 mg BID PO 07/17/20 21:00 07/18/20 11:21 DC 07/18/20 08:47 Memantine (Namenda) 10 mg BID PO 07/18/20 21:00 07/19/20 08:49 Meropenem (Merrem) 1 gm Q8H IV 07/12/20 20:45 07/12/20 20:57 DC Meropenem 1 gm/IV Miscellaneous Supplies 50 ml @ 100 mls/hr Q8H IV 07/13/20 02:00 07/17/20 08:07 DC 07/17/20 02:37 Metformin HCl (Glucophage) 500 mg BID PO 07/12/20 21:00 07/19/20 08:48 Miscellaneous (Unresolved Clarification Entry) SEE LABEL COMMENTS DAILY XX 07/17/20 09:00 07/17/20 08:10 DC Multivitamins (Ocuvite(I-Bindu)) 1 tab DAILY PO 07/13/20 09:00 07/19/20 08:48 Omeprazole (PriLOSEC) 20 mg BID PO 07/12/20 21:00 07/19/20 08:48 Senna (Senokot) 1 tab QHSP PRN PO CONSTIPATION 07/18/20 11:00 Sodium Biphosphate/ Sodium Phosphate (Fleet Enema) 1 ea DAILYPRN PRN MO CONSTIPATION 07/18/20 11:00 Spironolactone (Aldactone) 12.5 mg DAILY PO 07/13/20 09:00 07/17/20 09:38 DC 07/17/20 08:03 Vitamin B Complex/ Vitamin C (Therapeutic B Complex w/C) 1 cap DAILY PO 07/13/20 09:00 07/19/20 08:47 BIANCA VILLA MD Jul 19, 2020 09:49
[2020-07-19] MEDS ORDERED: FLEET ENEMA PR ONE (10:00)
--- NOTE | 2020-07-19 11:27 | IPNPDOC ---
Text Note Date of Service The patient was seen on 07/19/20. NOTE Patient is feeling better but still remains weak. Participating in therapy.. No overnight event PHYSICAL EXAMINATION: Constitutional: Sitting upright in chair having lunch and answering all questions appropriately no acute distress. ENT: Sclera are clear. Mucosa is dry. Respiratory: Lungs CTA bilaterally. No respiratory distress. No use of accessory muscles. Cardiovascular: RRR S1 and S2 are normal. No JVD Gastrointestinal: Abdomen is soft, non distended, non tender, BS present. Quiles in place. Musculoskeletal: No LE edema. Neurologic: No focal neurologic deficits, has some cogwheel rigidity Mental Status: Able to answer all questions appropriately alert and oriented 3 Skin: Warm, dry ASSESSMENT/PLAN 85 year old male with past medical history of Parkinson dementia, DM2, CHF, hypothyroid, is brought in by son on July 10 due to increased confusion and w eakness at home . He was admitted for acute encephalopathy on July 10 secondary to chronic indwelling Quiles catheter associated Klebsiella ESBL UTI. ESBL sensitive to IV meropenem which she was started on and will continue until July 16 for the last day. Patient was discharged on 07/12/2020 and admitted to the acute rehabilitation unit. 1: Chronic indwelling Quiles catheter associated Klebsiella ESBL UTI: Sensitive to IV meropenem. Abx treatment finished. 2: DM: ISS. Frequent Accu-Cheks. Hypoglycemic precautions. Carbohydrate consistent diet. 3: HFpEF: Slightly dehydrated on exam. Bumex changed to once daily from BID and aldectone still on hold. 5: Parkinson disease: Continue with carbidopa/levodopa which was restarted . 6: Hypothyroidism: continue levothyroxine. 7: Mild leucocytosis: Cont to monitor. no fever or any signs of SIRS 8: BRAXTON: Resolved. Continue holding Aldactone and continue Bumex at a low-dose Disposition as per primary VS,Fishbone, I+O VS, Fishbone, I+O Laboratory Tests 07/19/20 07:24 Vital Signs Date Time Temp Pulse Resp B/P (MAP) Pulse Ox O2 Delivery O2 Flow Rate FiO2 07/19/20 06:00 97.5 66 18 134/61 (85) 94 Room Air I&O- Last 24 Hours up to 6 AM 07/19/20 06:00 Intake Total 630 ml Output Total 1400 ml Balance -770 ml ALEXX RUBALCAVA MD Jul 19, 2020 11:27
[2020-07-19 14:00] VITALS: BP 132/70
[2020-07-19 20:00] VITALS: BP 138/71
[2020-07-19] MEDS: DONEPEZIL 5 MG TAB PO SCH (20:10)
[2020-07-19] MEDS: SINEMET**CR** 25/100 TABCR PO SCH (20:10)
[2020-07-20] MEDS: LEVOTHYROXINE 125MCG TABLET (0.125MG) PO SCH (05:41)
[2020-07-20] MEDS: HEPARIN SOD (PORCINE) 5000UNITS/ML 1ML VIAL/SYRINGE SQ SCH (05:43)
[2020-07-20 06:00] VITALS: BP 139/63
[2020-07-20] MEDS: HumaLOG INSULIN (NovoLOG) PER UNIT SC SCH ×2 (07:30→12:00)
[2020-07-20 07:33] LABS: BASO % 0.5 % (0.0-1.0); EOS # 0.5 10^3/uL (0.0-0.5); EOS % 5.3 % (0.0-3.0); HEMATOCRIT 30.1 % (42.0-52.0); HEMOGLOBIN 9.3 g/dl (13.5-17.5); LYMPH # 1.5 10^3/uL (1.5-5.0); LYMPH % 16.4 % (24.0-44.0); MEAN CORPUSCULAR HEMOGLOBIN 27.7 pg (27.0-33.0); MEAN CORPUSCULAR HGB CONC 30.9 g/dl (32.0-36.5); MEAN CORPUSCULAR VOLUME 89.6 fl (80.0-96.0); MONO # 0.6 10^3/uL (0.0-0.8); MONO % 7.2 % (0.0-5.0); NEUTROPHILS # 6.2 10^3/uL (1.5-8.5); NEUTROPHILS % 69.9 % (36.0-66.0); PLATELET COUNT, AUTOMATED 389 10^3/uL (150-450); RED BLOOD COUNT 3.36 10^6/uL (4.30-6.10); WHITE BLOOD COUNT 8.8 10^3/uL (4.0-10.0)
[2020-07-20 08:03] LABS: BLOOD UREA NITROGEN 22 MG/DL (7-18); CALCIUM LEVEL 8.8 MG/DL (8.8-10.2); CARBON DIOXIDE LEVEL 27 MEQ/L (21-32); CHLORIDE LEVEL 107 MEQ/L (98-107); CREATININE FOR GFR 1.16 MG/DL (0.70-1.30); GLOMERULAR FILTRATION RATE > 60.0 (>35); GLUCOSE, FASTING 229 MG/DL (70-100); POTASSIUM SERUM 3.9 MEQ/L (3.5-5.1); SODIUM LEVEL 140 MEQ/L (136-145)
[2020-07-20] MEDS: BISACODYL 5 MG TAB PO SCH (09:00)
[2020-07-20] MEDS: metFORMIN (GLUCOPHAGE) 500 MG TAB PO SCH (09:00)
[2020-07-20] MEDS: REMEDY PHYTOPLEX Z-GUARD PASTE 113GM TUBE (FROM STOREROOM PRODUCT) TOP SCH (09:00)
[2020-07-20] MEDS ORDERED: ASPI-546 PO (09:01)
[2020-07-20] MEDS ORDERED: DONE10TA90 PO (09:01)
[2020-07-20] MEDS ORDERED: BUME1TAB3 PO (09:01)
[2020-07-20] MEDS ORDERED: CARB25TA9 PO (09:01)
[2020-07-20] MEDS ORDERED: SYNT125T PO (09:01)
[2020-07-20] MEDS ORDERED: METF500T13 PO (09:01)
[2020-07-20] MEDS ORDERED: CALC600T57 PO (09:01)
[2020-07-20] MEDS ORDERED: OMEP-218 PO (09:01)
[2020-07-20] MEDS ORDERED: CARB25TA31 PO (09:01)
[2020-07-20] MEDS ORDERED: MEMA10TA19 PO (09:01)
[2020-07-20] MEDS ORDERED: B-121CAP PO (09:01)
--- NOTE | 2020-07-20 10:22 | DSES ---
DISCHARGE SUMMARY DATE OF ADMISSION: 07/12/2020 DATE OF DISCHARGE: 07/20/2020 CHIEF COMPLAINT/DISCHARGE DIAGNOSIS: Worsening Parkinson's in the setting of Klebsiella UTI. HISTORY OF PRESENT ILLNESS: This is an 85-year-old man with a history of diabetes and Parkinson's disease with dementia who experienced significant decline in function. Found to have a Klebsiella UTI upon admission to the hospital on 07/10/2020. Patient had a longstanding indwelling Quiles and was started on ceftriaxone, transitioned to meropenem with negative blood cultures. His Parkinson's medications were discontinued due to concern for its contribution to encephalopathy and cognitive decline. He was found to have significant impairments in mobility and ADLs and deemed medically appropriate for discharge to ARU. HOSPITAL COURSE: Patient was admitted and enrolled in a comprehensive PT, OT, speech and language pathology program. He received 24 hour nursing supervision, and weekly team meetings were held to discuss his progress. Patient was maintained on a level 3 diet due to his dysphagia in the setting of Parkinson's. He was noted to have severe bradykinesia and rigidity due to the discontinuation of his Parkinson's medications which were gradually restarted and then ultimately returned to his home dosing. Patient showed minimal improvement in his functional ability. His family was trained for return to home sooner than anticipated. Patient was medically cleared to return home having received IV fluids for dehydration and prerenal azotemia. He showed no further signs of infection and was deemed medically stable to return home, and although functionally not optimized, family was trained and agreed to provide to assist for his return home. DISCHARGE MEDICATIONS: As per instructions. FUNCTIONAL HISTORY ON DISCHARGE: Patient was max assist of two for bed mobility and all functional transfers. Thank you for this referral.
[2020-07-20] MEDS: ASPIRIN 81 MG ENTERIC TAB PO SCH (10:30)
[2020-07-20] MEDS: VITAMIN B COMPLEX/VIT C CAP PO SCH (10:30)
[2020-07-20] MEDS: CALCIUM/VITAMIN D 500 MG TAB PO SCH (10:31)
[2020-07-20] MEDS: SINEMET 25-100 MG TAB PO SCH ×2 (10:31→12:45)
[2020-07-20] MEDS: OCUVITE 1 TAB PO SCH (10:31)
[2020-07-20] MEDS: MEMANTINE 5MG TABLET (NAMENDA) PO SCH (10:32)
[2020-07-20] MEDS: OMEPRAZOLE 20 MG CAP PO SCH (10:33)
[2020-07-20] MEDS: MAGNESIUM OXIDE 400 MG TAB (MAG-OX) PO SCH (10:33)
[2020-07-20] MEDS: BUMETANIDE 1 MG TAB PO SCH (10:33)
[2020-07-20] MEDS ORDERED: BACI500O21 TOP (10:34)
[2020-07-20] MEDS: DOCUSATE SODIUM 100MG CAPSULE PO SCH (10:36)
--- NOTE | 2020-07-20 11:48 | IPNPDOC ---
Text Note Date of Service The patient was seen on 07/20/20. NOTE Patient is feeling better . No overnight event PHYSICAL EXAMINATION: Constitutional: Sitting upright in chair and answering all questions appropriately no acute distress. ENT: Sclera are clear. Mucosa is moist. Respiratory: Lungs CTA bilaterally. No respiratory distress. No use of accessory muscles. Cardiovascular: RRR S1 and S2 are normal. No JVD Gastrointestinal: Abdomen is soft, non distended, non tender, BS present. Quiles in place. Musculoskeletal: No LE edema. Neurologic: No focal neurologic deficits, has some cogwheel rigidity Mental Status: Able to answer all questions appropriately alert and oriented 3 Skin: Warm, dry ASSESSMENT/PLAN 85 year old male with past medical history of Parkinson dementia, DM2, CHF, hypothyroid, is brought in by son on July 10 due to increased confusion and weakness at home . He was admitted for acute encephalopathy on July 10 secondary to chronic indwelling Quiles catheter associated Klebsiella ESBL UTI. ESBL sensitive to IV meropenem which finished on July 16 for the last day. Patient was discharged on 07/12/2020 and admitted to the acute rehabilitation unit. 1: Chronic indwelling Quiles catheter associated Klebsiella ESBL UTI: Sensitive to IV meropenem. Abx treatment finished. 2: DM: ISS. Frequent Accu-Cheks. Hypoglycemic precautions. Carbohydrate consistent diet. 3: HFpEF: Euvolumic. Bumex was changed to once daily from BID and aldectone still on hold. 5: Parkinson disease: Continue with carbidopa/levodopa which was restarted . 6: Hypothyroidism: continue levothyroxine. 7: Mild leucocytosis: Cont to monitor. no fever or any signs of SIRS 8: BRAXTON: Resolved. Continue holding Aldactone and continue Bumex at a low-dose Disposition as per primary VS,Fishbone, I+O VS, Fishbone, I+O Laboratory Tests 07/20/20 07:07 Vital Signs Date Time Temp Pulse Resp B/P (MAP) Pulse Ox O2 Delivery O2 Flow Rate FiO2 07/20/20 06:00 97.1 69 20 139/63 (88) 96 Room Air I&O- Last 24 Hours up to 6 AM 07/20/20 06:00 Intake Total 1000 ml Output Total 1250 ml Balance -250 ml ALEXX RUBALCAVA MD Jul 20, 2020 11:48
== END 2020-07-20 14:15 | disposition home health service (06) | DRG 57 ==
LOC: M PM&R 18:16 → EEVIPCON 18:16
PROVIDERS: ADMIT Physical Medicine & Rehabilitation; ATTEND Physical Medicine & Rehabilitation
DX: G20 Parkinson's disease (principal); N39.0 Urinary tract infection, site not specified; F41.1 Generalized anxiety disorder; R53.81 Other malaise; E11.9 Type 2 diabetes mellitus without complications; E03.9 Hypothyroidism, unspecified; K21.9 Gastro-esophageal reflux disease without esophagitis; E86.0 Dehydration; E78.5 Hyperlipidemia, unspecified; I11.0 Hypertensive heart disease with heart failure; Z66 Do not resuscitate; I25.10 Atherosclerotic heart disease of native coronary artery without angina pectoris; Z95.5 Presence of coronary angioplasty implant and graft; Z79.82 Long term (current) use of aspirin; Z79.84 Long term (current) use of oral hypoglycemic drugs; Z79.899 Other long term (current) drug therapy; B96.1 Klebsiella pneumoniae [K. pneumoniae] as the cause of diseases classified elsewhere; R13.10 Dysphagia, unspecified; I50.9 Heart failure, unspecified; D72.829 Elevated white blood cell count, unspecified

== ENCOUNTER 2020-07-26 13:14 | Inpatient (IN) | payer MEDICARE, OTHER ==
[~2020-07-26 13:14] MED LIST changes: +BACI500O21 TOP; +DOCU100C16 PO; +MERO1INJ8 IV
[2020-07-26 13:53] LABS: GLUCOSE, URINE (UA) MANUAL 4+(1000 MG/DL) mg/dL (NEGATIVE)
[2020-07-26 13:54] LABS: BILIRUBIN, URINE MANUAL NEGATIVE (NEGATIVE); KETONE, URINE MANUAL NEGATIVE (NEGATIVE); UROBILINOGEN, URINE MANUAL NORMAL (NORMAL)
--- NOTE | 2020-07-26 13:54 | REP ---
INDICATION: Altered Mental Status. COMPARISON: Comparison head CT study November 25, 2019.. TECHNIQUE: Helical scanning is acquired. 5 mm axial images were reformatted. Coronal MPR images were generated. FINDINGS: Bone window settings demonstrate an intact bony calvarium. There is no evidence of skull fracture or incidental bony calvarial lesion. The visualized paranasal sinuses appear clear. No intraorbital abnormality is seen. On soft tissue window setting images; the lateral, third, and fourth ventricles are normal in size and position. Curry-white differentiation pattern is normal above and below the tentorium. There are is no evidence of intracranial hemorrhage. No mass, edema, infarction, or midline shift is seen. No extra-axial fluid collection is appreciated. There is generalized volume loss again noted. Small-vessel changes are seen in the periventricular white matter of the frontal lobes bilaterally. There is mild vascular calcification in the distal internal carotid arteries. IMPRESSION: Mild generalized volume loss and vascular calcification. Small vessel changes. No acute intracranial abnormality.. <Electronically signed by Stanislaw Jernigan > 07/26/20 [id number]
[2020-07-26 13:57] LABS: RBC, URINE 0-1 /hpf (0-3)
[2020-07-26 13:58] LABS: BACTERIA, URINE MOD AMOUNT; SQUAMOUS EPITHELIAL CELL URINE NONE SEEN /hpf (SMALL AMT)
[2020-07-26 14:00] LABS: HYALINE CAST, URINE NONE SEEN /lpf (0-1)
[2020-07-26 14:04] LABS: BASO # 0.1 10^3/uL (0.0-0.2); BASO % 0.6 % (0.0-1.0); EOS # 0.5 10^3/uL (0.0-0.5); EOS % 5.4 % (0.0-3.0); HEMOGLOBIN 10.4 g/dl (13.5-17.5); LYMPH # 2.2 10^3/uL (1.5-5.0); LYMPH % 24.8 % (24.0-44.0); MEAN CORPUSCULAR HEMOGLOBIN 27.2 pg (27.0-33.0); MEAN CORPUSCULAR HGB CONC 30.6 g/dl (32.0-36.5); MONO # 0.6 10^3/uL (0.0-0.8); MONO % 6.8 % (0.0-5.0); NEUTROPHILS # 5.5 10^3/uL (1.5-8.5); PLATELET COUNT, AUTOMATED 499 10^3/uL (150-450); RED BLOOD COUNT 3.82 10^6/uL (4.30-6.10); WHITE BLOOD COUNT 8.9 10^3/uL (4.0-10.0)
[2020-07-26 14:25] LABS: ALBUMIN 2.4 GM/DL (3.2-5.2); ALT/SGPT 8 U/L (12-78); BILIRUBIN,DIRECT < 0.1 MG/DL (0.0-0.2); BILIRUBIN,TOTAL 0.2 MG/DL (0.2-1.0); BLOOD UREA NITROGEN 32 MG/DL (7-18); CALCIUM LEVEL 8.8 MG/DL (8.8-10.2); CARBON DIOXIDE LEVEL 31 MEQ/L (21-32); CHLORIDE LEVEL 103 MEQ/L (98-107); CK-MB VALUE MASS < 1.0 NG/ML (<3.6); CPK CREATINE PHOSPHOKINASE 27 U/L (39-308); CREATININE FOR GFR 1.23 MG/DL (0.70-1.30); GLOMERULAR FILTRATION RATE 59.7 (>35); GLUCOSE, FASTING 311 MG/DL (70-100); POTASSIUM SERUM 3.8 MEQ/L (3.5-5.1); SODIUM LEVEL 139 MEQ/L (136-145); TOTAL PROTEIN 6.3 GM/DL (6.4-8.2); TROPONIN I < 0.02 NG/ML (< 0.10)
[2020-07-26] MEDS ORDERED: cefTRIAXone SOD 1 GM in D5W MINI-BAG PLUS 50 ML IV ONE (14:45)
[2020-07-26] MEDS ORDERED: PIPERACILLIN/TAZOBACTAM SOD 4.5 GM in D5W MINI-BAG PLUS 50 ML IV ONE (14:45)
--- NOTE | 2020-07-26 14:46 | REP ---
INDICATION: ALTERED MENTAL STATUS. COMPARISON: PA and lateral chest dated 04/09/2018 and portable chest dated 11/25/2019. TECHNIQUE: AP and lateral views of the chest with the patient sitting FINDINGS: The lung valles are clear. Cardiac size is normal. The maggie, mediastinum and skeletal structures are unremarkable. IMPRESSION: Essentially negative AP and lateral chest <Electronically signed by Jomar Whitten > 07/26/20 [id number]
[2020-07-26] MEDS ORDERED: CALC1TAB74 PO (15:07)
[2020-07-26] MEDS ORDERED: B-122500 PO (15:07)
[2020-07-26] MEDS ORDERED: SPIR-10 PO (15:07)
[2020-07-26] MEDS ORDERED: LEVO125T4 PO (15:07)
[2020-07-26] MEDS ORDERED: LUTE40CA2 PO (15:07)
[2020-07-26] MEDS ORDERED: CARB1TAB PO (15:07)
[2020-07-26] MEDS ORDERED: METF-839 PO (15:07)
[2020-07-26] MEDS ORDERED: MEMA10TA19 PO (15:07)
[2020-07-26] MEDS ORDERED: MAGN1TAB26 PO (15:07)
[2020-07-26] MEDS ORDERED: OMEP1CAP73 PO (15:07)
[2020-07-26] MEDS ORDERED: CARB25TA9 PO (15:07)
[2020-07-26] MEDS ORDERED: BUME1TAB3 PO (15:07)
[2020-07-26] MEDS ORDERED: ASPI81TA26 PO (15:08)
[2020-07-26] MEDS ORDERED: DONE10TA90 PO (15:08)
[2020-07-26] MEDS ORDERED: COQ1200C PO (15:08)
[2020-07-26] MEDS ORDERED: ACETAMINOPHEN TAB 650MG DOSE (2X325MG) PO PRN (15:30)
[2020-07-26 16:04] LABS: RSV AMPLIFICATION NEGATIVE (NEGATIVE)
--- NOTE | 2020-07-26 16:49 | HPEPDOC ---
General Date of Admission Jul 26, 2020 at 15:22 Date of Service: Jul 26, 2020 Chief Complaint The patient is a 85-year-old male admitted with a reason for visit of Ams/Dementia. Source: RN/MD, EMS History of Present Illness 85 year old male with Dementia, chronic ernst cath, Parkinson's disease was admitted here from Jul 10 to Jul 12 and then in ARU from Jul 12 to Jul 20 for UTI with ESBL klebsiella and Enterococcus faecium and treated with 5 days of meropenem. Comes back today via EMS for diarrhea for 2 days and lethargy. Patient has dementia and all history form chart, ED provider. Patient only answers yes and no to simple questions and keeps his eyes closed and does not want to interact. Home Medications Scheduled Aspirin (Aspirin EC) 81 Mg Tablet.dr, 81 MG PO QPM, (Reported) 1800 Calcium Carbonate/Vitamin D3 (Calcium 600-Vit D3 400 Tablet) 1 Each Tablet, 1 TAB PO BID, (Reported) 0800/1800 Carbidopa/Levodopa (Carbidopa-Levodopa 25-100 Tab) 1 Each Tablet, 2.5 TAB PO TID, (Reported) 0800/1200/1800 Carbidopa/Levodopa (Carbidopa-Levo ER 25-100 Tab) 1 Each Tablet.er, 1 TAB PO QHS, (Reported) Cyanocobalamin (Vitamin B-12) (Vitamin B12) 2,500 Mcg Tablet, 5,000 MCG PO DAILY, (Reported) 1200 Donepezil HCl (Donepezil HCl) 10 Mg Tablet, 10 MG PO QHS, (Reported) Levofloxacin (Levofloxacin) 500 Mg Tablet, 1 TAB PO DAILY Levothyroxine Sodium (Levothyroxine Sodium) 125 Mcg Tablet, 125 MCG PO QAM, (Reported) Lutein (Lutein) 40 Mg Capsule, 40 MG PO DAILY, (Reported) 1200 Magnesium Oxide (Magnesium Oxide) 400 Mg Tablet, 400 MG PO BID, (Reported) 1200/2000 Memantine HCl (Memantine HCl) 10 Mg Tablet, 10 MG PO BID, (Reported) 1200/2000 Metformin HCl (Metformin HCl) 500 Mg Tablet, 500 MG PO BID, (Reported) 1200/2000 Omeprazole (Omeprazole) 20 Mg Capsule.dr, 20 MG PO BID, (Reported) Spironolactone (Spironolactone) 25 Mg Tablet, 12.5 MG PO DAILY, (Reported) 1200 Ubidecarenone (Co Q-10) 200 Mg Capsule, 200 MG PO QPM, (Reported) 1800 Allergies Coded Allergies: No Known Allergies (Unverified , 11/25/19) Past Medical History Medical History Chronic Indwelling Ernst for chronic retention Klebsiella ESBL UTI Generalized debility Diabetes CAD s/p stents Parkinsons dementia Dementia with delirium Hypothyroidism GERD Chronic anemia Vit B12 def Dehydration Surgical History Cholecystectomy Lithotripsy Esophageal dilatation cardiac stents x 2 TONSILS AND ADENOIDS PARTIAL RIGHT NEPHRECTOMY AT [facility] in 2009 Family History No h/o prostate, kidney or bladder cancer. 2 sons alive and well. Social History * Smoker: Denies Alcohol: Denies Drugs: denies A-FIB/CHADSVASC A-FIB History Current/History of A-Fib/PAF?: No Review of Systems Constitutional: Denies: Chills, Fever Skin: Reports: Breakdown Pulmonary: Denies: Dyspnea, Cough Cardiovascular: Denies: Chest Pain, Lt Headedness Gastrointestinal: Reports: Diarrhea; Denies: Nausea, Vomiting, Abdominal Pain Genitourinary: Reports: Retention (with ernst) Musculoskeletal: Reports: Spasms; Denies: Neck Pain, Back Pain Neurological: Reports: Confusion Psych: Reports: Memory Issues Physical Examination General Exam: Positive: Other (somnolent but easily arousable) ENT Exam: Positive: Atraumatic, Mucous membr. moist/pink, Pharynx Normal Neck Exam: Positive: Supple; Negative: JVD, thyromegaly Chest Exam: Positive: Clear to auscultation, Normal air movement Heart Exam: Positive: Rate Normal, Regular Rhythm, Normal S1, Normal S2; Negative: Murmurs, Rubs Abdomen Exam: Positive: Normal bowel sounds, Soft; Negative: Tenderness, Hepatospenomegaly Extremity Exam: Positive: Normal pulses; Negative: Clubbing, Cyanosis, Edema Skin Exam: Positive: Nl turgor and temperature; Negative: Breakdown, Lesion Psych Exam: Positive: Other (dementia, oriented to name only) Vital Signs Vital Signs Date Time Temp Pulse Resp B/P (MAP) Pulse Ox O2 Delivery O2 Flow Rate FiO2 07/26/20 14:02 97.4 07/26/20 13:30 67 20 135/65 (88) 98 Room Air Laboratory Data Labs 24H Laboratory Tests 2 07/26/20 13:30: Immature Granulocyte % (Auto) 0.4, Neutrophils (%) (Auto) 62.0, Lymphocytes (%) (Auto) 24.8, Monocytes (%) (Auto) 6.8H, Eosinophils (%) (Auto) 5.4H, Basophils (%) (Auto) 0.6, Neutrophils # (Auto) 5.5, Lymphocytes # (Auto) 2.2, Monocytes # (Auto) 0.6, Eosinophils # (Auto) 0.5, Basophils # (Auto) 0.1, Nucleated Red Blood Cells % (auto) 0.0, Anion Gap 5L, Glomerular Filtration Rate 59.7, Calcium Level 8.8, Total Bilirubin 0.2, Direct Bilirubin < 0.1, Aspartate Amino Transf (AST/SGOT) 5L, Alanine Aminotransferase (ALT/SGPT) 8L, Alkaline Phosphatase 109, Total Creatine Kinase 27L, Creatine Kinase MB < 1.0, Creatine Kinase MB Relative Index 3.70, Troponin I < 0.02, Total Protein 6.3L, Albumin 2.4L, Albumin/Globulin Ratio 0.6, Thyroid Stimulating Hormone (TSH) 3.170 07/26/20 13:34: Urine Color (ISELA) LT YELLOW, Urine Appearance (ISELA) HAZYH, Urine pH (ISELA) 6.0, Urine Specific [place] (ISELA) 1.020, Bedside Urine Glucose (UA) 4+(1000 MG/DL)H, Bedside Urine Ketones (LAB) NEGATIVE, Bedside Urine Blood TRACEH, Bedside Urine Nitrite (LAB) POSITIVEH, Bedside Urine Bilirubin (LAB) NEGATIVE, Bedside Urine Urobilinogen (LAB) NORMAL, Bedside Urine Leukocyte Esterase (L POSITIVEH, Urine Sediment Examination UNSPUN, Urine RBC 0-1, Urine WBC 7-10H, Urine Squamous Epithelial Cells NONE SEEN, Urine Bacteria MOD AMOUNTH, Urine Hyaline Casts NONE SEEN 07/26/20 15:16: Coronavirus (COVID-19)(PCR) NEGATIVE, Influenza Type A (RT-PCR) NEGATIVE, Influenza Type B (RT-PCR) NEGATIVE, Respiratory Syncytial Virus (PCR) NEGATIVE CBC/BMP Laboratory Tests 07/26/20 13:30 Microbiology Microbiology 07/26/20 Campylobacter (PCR), Received Pending 07/26/20 Clostridium difficile Toxin A&B PCR, Received Pending 07/26/20 Plesiomonas shigelloides (PCR), Received Pending 07/26/20 Salmonella (PCR)(VALDO), Received Pending 07/26/20 Vibrio Species (PCR), Received Pending 07/26/20 Vibrio Cholerae (PCR), Received Pending 07/26/20 Yersinia enterocolitica (PCR), Received Pending 07/26/20 Enteroaggregative E. coli (PCR), Received Pending 07/26/20 Enteropathogenic E. coli (PCR), Received Pending 07/26/20 Enterotoxigenic E. coli (PCR), Received Pending 07/26/20 E. coli Shiga-like Toxin (PCR), Received Pending 07/26/20 Escherichia coli 0157 (PCR), Received Pending 07/26/20 Enteroinvasive E. coli/Shigella PCR, Received Pending 07/26/20 Cryptosporidium (PCR), Received Pending 07/26/20 Cyclospora cayetanensis (PCR), Received Pending 07/26/20 Entamoeba histolytica (PCR), Received Pending 07/26/20 Giardia lamblia (PCR), Received Pending 07/26/20 Adenovirus Type F 40/41 (PCR), Received Pending 07/26/20 Astrovirus (PCR), Received Pending 07/26/20 Norovirus GI/GII (PCR), Received Pending 07/26/20 Rotavirus A (PCR), Received Pending 07/26/20 Sapovirus I/II/IV/V (PCR), Received Pending 07/26/20 Urine Culture, Received Pending Assessment/Plan 85 year old male with Dementia, chronic ernst cath, Parkinson's disease was admitted here from Jul 10 to Jul 12 and then in ARU from Jul 12 to Jul 20 for UTI with ESBL klebsiella and Enterococcus faecium and treated with 5 days of meropenem. Comes back today via EMS for diarrhea for 2 days and lethargy. Diarrhea with mild dehydration Hb higher than last baseline, BUN higher than last discharge value. will send stool culture, Stool for c diff pcr. IVF. stop bumetanide and spironolactone. UTI vs colonization of chronic ernst No fever or elevated WBC U/A only 7 wbc though nitrite positive cultures have been sent I feel this is more colonization than rather true UTI got 1 dose of zosyn in the ED As no signs of sepsis will hold off on further antibiotics for now. Acute metabolic encephalopathy probably due to dehydration Chronic Indwelling Ernst for chronic retention ernst care. Generalized debility Diabetes sugars appear to be uncontrolled lispro as per sliding scale FS Ac and HS CAD s/p stents no issues at this time EKG sinus rhythm , no acute ischemic changes. ASA Parkinsons dementia continue home meds Hypothyroidism synthroid GERD/ esophageal stricture s/p dilatations PPI Plan / VTE VTE Prophylaxis Ordered?: Yes THIEN BUCK MD Jul 26, 2020 16:46
[2020-07-26] MEDS ORDERED: DEXTROSE 50% 50 ML SYRINGE IV PRN (17:00)
[2020-07-26] MEDS ORDERED: GLUCOSE 4GM CHEW TABLET PO PRN (17:00)
[2020-07-26] MEDS ORDERED: GLUCAGON INJ 1MG VIAL SC PRN (17:00)
[2020-07-26] MEDS: NS 1,000 ML IV SCH (17:09)
[2020-07-26] MEDS ORDERED: PILL CUTTER 1 EACH XX PRN (17:15)
[2020-07-26 17:27] VITALS: BP 149/71
[2020-07-26] MEDS: ASPIRIN 81 MG ENTERIC TAB PO SCH (18:08)
[2020-07-26] MEDS: HumaLOG INSULIN (NovoLOG) PER UNIT SC SCH (18:08)
[2020-07-26] MEDS: SINEMET 25-100 MG TAB PO SCH (18:08)
[2020-07-26] MEDS: OMEPRAZOLE 20 MG CAP PO SCH (20:28)
[2020-07-26] MEDS: MEMANTINE 5MG TABLET (NAMENDA) PO SCH (20:28)
[2020-07-26] MEDS: DOCUSATE SODIUM 100MG CAPSULE PO SCH (20:29)
[2020-07-26] MEDS: SINEMET**CR** 25/100 TABCR PO SCH (20:29)
[2020-07-26] MEDS: DONEPEZIL 5 MG TAB PO SCH (20:29)
[2020-07-26 22:00] VITALS: BP 156/84
[2020-07-27] MEDS: NS 1,000 ML IV SCH (03:28)
[2020-07-27] MEDS: LEVOTHYROXINE 125MCG TABLET (0.125MG) PO SCH (05:44)
[2020-07-27 06:00] VITALS: BP 129/69
[2020-07-27 06:20] LABS: BASO # 0.1 10^3/uL (0.0-0.2); BASO % 0.6 % (0.0-1.0); EOS # 0.6 10^3/uL (0.0-0.5); EOS % 6.1 % (0.0-3.0); HEMOGLOBIN 9.7 g/dl (13.5-17.5); LYMPH % 20.4 % (24.0-44.0); MEAN CORPUSCULAR HEMOGLOBIN 27.2 pg (27.0-33.0); MEAN CORPUSCULAR HGB CONC 30.3 g/dl (32.0-36.5); MEAN CORPUSCULAR VOLUME 89.6 fl (80.0-96.0); MONO # 0.6 10^3/uL (0.0-0.8); MONO % 6.5 % (0.0-5.0); NEUTROPHILS # 6.3 10^3/uL (1.5-8.5); NEUTROPHILS % 65.7 % (36.0-66.0); PLATELET COUNT, AUTOMATED 448 10^3/uL (150-450); RED BLOOD COUNT 3.57 10^6/uL (4.30-6.10); WHITE BLOOD COUNT 9.6 10^3/uL (4.0-10.0)
[2020-07-27 06:47] LABS: BLOOD UREA NITROGEN 26 MG/DL (7-18); CALCIUM LEVEL 8.7 MG/DL (8.8-10.2); CARBON DIOXIDE LEVEL 31 MEQ/L (21-32); CHLORIDE LEVEL 105 MEQ/L (98-107); CREATININE FOR GFR 0.93 MG/DL (0.70-1.30); GLOMERULAR FILTRATION RATE > 60.0 (>35); GLUCOSE, FASTING 198 MG/DL (70-100); POTASSIUM SERUM 3.8 MEQ/L (3.5-5.1); SODIUM LEVEL 140 MEQ/L (136-145)
--- NOTE | 2020-07-27 07:06 | ECGEPIP ---
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
[2020-07-27] MEDS: OMEPRAZOLE 20 MG CAP PO SCH ×2 (08:09→21:08)
[2020-07-27] MEDS: HumaLOG INSULIN (NovoLOG) PER UNIT SC SCH ×3 (08:09→18:06)
[2020-07-27] MEDS: SINEMET 25-100 MG TAB PO SCH ×3 (08:09→18:06)
[2020-07-27] MEDS: DOCUSATE SODIUM 100MG CAPSULE PO SCH ×2 (08:10→21:08)
--- NOTE | 2020-07-27 12:19 | IPNPDOC ---
Subjective Date Seen The patient was seen on 07/27/20. Subjective Chief Complaint/HPI More awake and interactive today. He was able to tell me what he likes for breakfast and what flavor of ensure he likes. Though his hands were soiled with stool as he had his hands inside the diaper. No fever or chills. Objective Physical Examination General Exam: Positive: Alert, Cooperative, No Acute Distress Eye Exam: Positive: PERRLA, Conjunctiva & lids normal ENT Exam: Positive: Atraumatic, Mucous membr. moist/pink, Pharynx Normal Neck Exam: Positive: Supple; Negative: JVD, thyromegaly Chest Exam: Positive: Clear to auscultation, Normal air movement Heart Exam: Positive: Rate Normal, Regular Rhythm, Normal S1, Normal S2; Negative: Murmurs, Rubs Abdomen Exam: Positive: Normal bowel sounds, Soft; Negative: Tenderness, Hepatospenomegaly Extremity Exam: Positive: Normal pulses; Negative: Clubbing, Cyanosis, Edema Skin Exam: Positive: Nl turgor and temperature; Negative: Breakdown, Lesion Psych Exam: Positive: Other (dementia, oriented to name only) Assessment /Plan Assessment 85 year old male with Dementia, chronic ernst cath, Parkinson's disease was admitted here from Jul 10 to Jul 12 and then in ARU from Jul 12 to Jul 20 for UTI with ESBL klebsiella and Enterococcus faecium and treated with 5 days of meropenem. Comes back today via EMS for diarrhea for 2 days and lethargy. As per sone he has not gone back to baseline functional status since his urine infection on Jul 10. After he was discharged form ARu he continued to need 2 pers on assistance , he was sleeping most of the day and his oral intake was very poor for the past 5 days. Before earlier hospitalization he was able to ambulate to the bathroom which was about 20 ft with 1 assist and his food intake and weight had merlyn stable. Diarrhea with mild dehydration Hb higher than last baseline, BUN higher than last discharge value. will send stool culture, Stool for c diff pcr. stop bumetanide and spironolactone. UTI vs colonization of chronic ernst No fever or elevated WBC U/A only 7 wbc though nitrite positive cultures have been sent I feel this is more colonization than rather true UTI got 1 dose of zosyn in the ED As no signs of sepsis will hold off on further antibiotics for now. Acute metabolic encephalopathy probably due to dehydration Chronic Indwelling Ernst for chronic retention ernst care. Generalized debility Diabetes sugars appear to be uncontrolled lispro as per sliding scale FS Ac and HS CAD s/p stents no issues at this time EKG sinus rhythm , no acute ischemic changes. ASA Parkinsons dementia continue home meds Hypothyroidism synthroid GERD/ esophageal stricture s/p dilatations PPI Plan/VTE VTE Prophylaxis Ordered?: Yes VS, I&O, 24H, Fishbone Vital Signs/I&O Vital Signs Date Time Temp Pulse Resp B/P (MAP) Pulse Ox O2 Delivery O2 Flow Rate FiO2 07/27/20 06:00 97.6 61 18 129/69 (89) 91 Room Air I&O- Last 24 Hours up to 6 AM 07/27/20 06:00 Intake Total 500 ml Output Total 400 ml Balance 100 ml Laboratory Data 24H LABS Laboratory Tests 2 07/26/20 13:30: Immature Granulocyte % (Auto) 0.4, Neutrophils (%) (Auto) 62.0, Lymphocytes (%) (Auto) 24.8, Monocytes (%) (Auto) 6.8H, Eosinophils (%) (Auto) 5.4H, Basophils (%) (Auto) 0.6, Neutrophils # (Auto) 5.5, Lymphocytes # (Auto) 2.2, Monocytes # (Auto) 0.6, Eosinophils # (Auto) 0.5, Basophils # (Auto) 0.1, Nucleated Red Blood Cells % (auto) 0.0, Anion Gap 5L, Glomerular Filtration Rate 59.7, Calcium Level 8.8, Total Bilirubin 0.2, Direct Bilirubin < 0.1, Aspartate Amino Transf (AST/SGOT) 5L, Alanine Aminotransferase (ALT/SGPT) 8L, Alkaline Phosphatase 109, Total Creatine Kinase 27L, Creatine Kinase MB < 1.0, Creatine Kinase MB Relative Index 3.70, Troponin I < 0.02, Total Protein 6.3L, Albumin 2.4L, Albumin/Globulin Ratio 0.6, Thyroid Stimulating Hormone (TSH) 3.170 07/26/20 13:34: Urine Color (ISELA) LT YELLOW, Urine Appearance (ISELA) HAZYH, Urine pH (ISELA) 6.0, Urine Specific [place] (ISELA) 1.020, Bedside Urine Glucose (UA) 4+(1000 MG/DL)H, Bedside Urine Ketones (LAB) NEGATIVE, Bedside Urine Blood TRACEH, Bedside Urine Nitrite (LAB) POSITIVEH, Bedside Urine Bilirubin (LAB) NEGATIVE, Bedside Urine Urobilinogen (LAB) NORMAL, Bedside Urine Leukocyte Esterase (L POSITIVEH, Urine Sediment Examination UNSPUN, Urine RBC 0-1, Urine WBC 7-10H, Urine Squamous Epithelial Cells NONE SEEN, Urine Bacteria MOD AMOUNTH, Urine Hyaline Casts NONE SEEN 07/26/20 15:16: Coronavirus (COVID-19)(PCR) NEGATIVE, Influenza Type A (RT-PCR) NEGATIVE, Influenza Type B (RT-PCR) NEGATIVE, Respiratory Syncytial Virus (PCR) NEGATIVE 07/26/20 15:28: 07/26/20 17:56: Bedside Glucose (Misc Panel) 227H 07/26/20 19:53: Bedside Glucose (Misc Panel) 158H 07/27/20 05:48: Immature Granulocyte % (Auto) 0.7, Neutrophils (%) (Auto) 65.7, Lymphocytes (%) (Auto) 20.4L, Monocytes (%) (Auto) 6.5H, Eosinophils (%) (Auto) 6.1H, Basophils (%) (Auto) 0.6, Neutrophils # (Auto) 6.3, Lymphocytes # (Auto) 2.0, Monocytes # (Auto) 0.6, Eosinophils # (Auto) 0.6H, Basophils # (Auto) 0.1, Nucleated Red Blood Cells % (auto) 0.0, Anion Gap 4L, Glomerular Filtration Rate > 60.0, Calcium Level 8.7L 07/27/20 11:42: Bedside Glucose (Misc Panel) 133H CBC/BMP Laboratory Tests 07/26/20 13:30 07/27/20 05:48 Microbiology Microbiology 07/27/20 Campylobacter (PCR), Received Pending 07/27/20 Clostridium difficile Toxin A&B PCR, Received Pending 07/27/20 Plesiomonas shigelloides (PCR), Received Pending 07/27/20 Salmonella (PCR)(VALDO), Received Pending 07/27/20 Vibrio Species (PCR), Received Pending 07/27/20 Vibrio Cholerae (PCR), Received Pending 07/27/20 Yersinia enterocolitica (PCR), Received Pending 07/27/20 Enteroaggregative E. coli (PCR), Received Pending 07/27/20 Enteropathogenic E. coli (PCR), Received Pending 07/27/20 Enterotoxigenic E. coli (PCR), Received Pending 07/27/20 E. coli Shiga-like Toxin (PCR), Received Pending 07/27/20 Escherichia coli 0157 (PCR), Received Pending 07/27/20 Enteroinvasive E. coli/Shigella PCR, Received Pending 07/27/20 Cryptosporidium (PCR), Received Pending 07/27/20 Cyclospora cayetanensis (PCR), Received Pending 07/27/20 Entamoeba histolytica (PCR), Received Pending 07/27/20 Giardia lamblia (PCR), Received Pending 07/27/20 Adenovirus Type F 40/41 (PCR), Received Pending 07/27/20 Astrovirus (PCR), Received Pending 07/27/20 Norovirus GI/GII (PCR), Received Pending 07/27/20 Rotavirus A (PCR), Received Pending 07/27/20 Sapovirus I/II/IV/V (PCR), Received Pending 07/26/20 Urine Culture, Received Pending THIEN BUCK MD Jul 27, 2020 12:19
[2020-07-27 12:45] LABS: CLOSTRIDIUM DIFFICILE PCR NEGATIVE (NEGATIVE)
[2020-07-27] MEDS: MEMANTINE 5MG TABLET (NAMENDA) PO SCH ×2 (12:45→21:08)
[2020-07-27 14:00] VITALS: BP 122/65
[2020-07-27] MEDS: ASPIRIN 81 MG ENTERIC TAB PO SCH (18:06)
[2020-07-27] MEDS: DONEPEZIL 5 MG TAB PO SCH (21:08)
[2020-07-27] MEDS: SINEMET**CR** 25/100 TABCR PO SCH (21:08)
[2020-07-27 22:00] VITALS: BP 120/65
[2020-07-28] MEDS: LEVOTHYROXINE 125MCG TABLET (0.125MG) PO SCH (05:42)
[2020-07-28 05:49] LABS: BASO # 0.1 10^3/uL (0.0-0.2); BASO % 0.6 % (0.0-1.0); EOS # 0.4 10^3/uL (0.0-0.5); EOS % 5.6 % (0.0-3.0); HEMATOCRIT 31.6 % (42.0-52.0); HEMOGLOBIN 9.6 g/dl (13.5-17.5); LYMPH # 1.6 10^3/uL (1.5-5.0); LYMPH % 20.3 % (24.0-44.0); MEAN CORPUSCULAR HEMOGLOBIN 26.7 pg (27.0-33.0); MEAN CORPUSCULAR HGB CONC 30.4 g/dl (32.0-36.5); MONO # 0.5 10^3/uL (0.0-0.8); MONO % 6.3 % (0.0-5.0); NEUTROPHILS # 5.3 10^3/uL (1.5-8.5); NEUTROPHILS % 66.7 % (36.0-66.0); PLATELET COUNT, AUTOMATED 411 10^3/uL (150-450); RED BLOOD COUNT 3.59 10^6/uL (4.30-6.10); WHITE BLOOD COUNT 7.9 10^3/uL (4.0-10.0)
[2020-07-28 06:10] VITALS: BP 127/67
[2020-07-28 06:17] LABS: BLOOD UREA NITROGEN 18 MG/DL (7-18); CARBON DIOXIDE LEVEL 28 MEQ/L (21-32); CHLORIDE LEVEL 107 MEQ/L (98-107); CREATININE FOR GFR 0.88 MG/DL (0.70-1.30); GLOMERULAR FILTRATION RATE > 60.0 (>35); GLUCOSE, FASTING 192 MG/DL (70-100); POTASSIUM SERUM 3.7 MEQ/L (3.5-5.1); SODIUM LEVEL 141 MEQ/L (136-145)
[2020-07-28 06:18] LABS: CALCIUM LEVEL 8.5 MG/DL (8.8-10.2)
[2020-07-28] MEDS: OMEPRAZOLE 20 MG CAP PO SCH (08:55)
[2020-07-28] MEDS: HumaLOG INSULIN (NovoLOG) PER UNIT SC SCH ×2 (08:55→11:26)
[2020-07-28] MEDS: SINEMET 25-100 MG TAB PO SCH ×2 (08:56→11:26)
[2020-07-28] MEDS: DOCUSATE SODIUM 100MG CAPSULE PO SCH (08:56)
[2020-07-28] MEDS ORDERED: ERTAPENEM SODIUM 1 GM in NS MINI-BAG PLUS 50 ML IV SCH (09:00)
[2020-07-28] MEDS ORDERED: LEVO500T3 PO (10:53)
[2020-07-28] MEDS: MEMANTINE 5MG TABLET (NAMENDA) PO SCH (11:27)
--- NOTE | 2020-07-28 14:38 | DS.PDOC ---
Discharge Summary General Date of Admission Jul 26, 2020 at 15:22 Date of Discharge 07/28/20 Discharge Summary PROCEDURES PERFORMED DURING STAY: [None]. DISCHARGE DIAGNOSES: Diarrhea and dehydration Possibly antibiotic or metformin related diarrhea, C diff negative. Acute encephalopathy due to dehydration UTI Chronic colonization of ernst Chronic indwelling ernst Debility and Sarcopenia SECONDARY DIAGNOSIS: Parkinson's Dementia CAD s/p stents Hypothyroid GERD Diabetes Esophageal strictures needing dilatation fo the past 5 years. COMPLICATIONS/CHIEF COMPLAINT: Ams/Dementia. HOSPITAL COURSE: 85 year old male with Dementia, chronic ernst cath, Parkinson's disease was admitted here from Jul 10 to Jul 12 and then in ARU from Jul 12 to Jul 20 for UTI with ESBL klebsiella and Enterococcus faecium and treated with 5 days of meropenem. Comes back today via EMS for diarrhea for 2 days and lethargy. As per sone he has not gone back to baseline functional status since his urine infection on Jul 10. After he was discharged form ARU he continued to need 2 person assistance , he was sleeping most of the day and his oral intake was very poor for the past 5 days. Before earlier hospitalization he was able to ambulate to the bathroom which was about 20 ft with 1 assist and his food intake and weight had merlyn stable. However since his hospitalization on 07/10/20 he has been just going downhill. He is now needing a Sera Study to get him to the chair. He is refusing food. Discussed with son regarding goals of care. He wanted to take Elias home and set up for home hospice. He understood that from this point onward he will just be going downhill. He said the he wants his father to peacefully at home. Diarrhea with mild dehydration Hb higher than last baseline, BUN higher than last discharge value. stool culture in progress. Stool for c diff pcr is negative Possibly antibiotic related diarrhea. stop bumetanide and spironolactone. UTI vs colonization of chronic ernst No fever or elevated WBC U/A only 7 wbc though nitrite positive cultures have been sent I feel this is more colonization than rather true UTI got 1 dose of zosyn in the ED will give levofloxacin course. Acute metabolic encephalopathy probably due to dehydration Chronic Indwelling Ernst for chronic retention ernst care. Generalized debility/ Sarcopenia Diabetes sugars appear to be uncontrolled lispro as per sliding scale FS Ac and HS CAD s/p stents no issues at this time EKG sinus rhythm , no acute ischemic changes. ASA Parkinsons dementia continue home meds Hypothyroidism synthroid DIabetes continue home meds GERD/ esophageal stricture s/p dilatations PPI DISCHARGE MEDICATIONS: Please see below. ALLERGIES: Please see below. PHYSICAL EXAMINATION ON DISCHARGE: VITAL SIGNS: Please see below. General Exam: Positive: Alert, Cooperative, No Acute Distress Eye Exam: Positive: PERRLA, Conjunctiva & lids normal ENT Exam: Positive: Atraumatic, Mucous membr. moist/pink, Pharynx Normal Neck Exam: Positive: Supple; Negative: JVD, thyromegaly Chest Exam: Positive: Clear to auscultation, Normal air movement Heart Exam: Positive: Rate Normal, Regular Rhythm, Normal S1, Normal S2; Negative: Murmurs, Rubs Abdomen Exam: Positive: Normal bowel sounds, Soft; Negative: Tenderness, Hepatospenomegaly Extremity Exam: Positive: Normal pulses; Negative: Clubbing, Cyanosis, Edema Skin Exam: Positive: Nl turgor and temperature; Negative: Breakdown, Lesion Psych Exam: Positive: Other (dementia, oriented to name only) LABORATORY DATA: Please see below. ACTIVITY: [As tolerated]. DIET: As tolerated DISPOSITION: 01 Home, Self-Care. DISCHARGE INSTRUCTIONS: Follow up with PMD as needed Referral given to home hospice ITEMS TO FOLLOWUP ON ON OUTPATIENT: Final stool cultures DISCHARGE CONDITION: [Stable]. TIME SPENT ON DISCHARGE: 35 minutes. Vital Signs/I&Os Vital Signs Date Time Temp Pulse Resp B/P (MAP) Pulse Ox O2 Delivery O2 Flow Rate FiO2 07/28/20 06:10 97.4 62 18 127/67 (87) 98 Room Air I&O- Last 24 Hours up to 6 AM 07/28/20 06:00 Intake Total 3140 ml Output Total 1770 ml Balance 1370 ml Laboratory Data Labs 24H Laboratory Tests 2 07/27/20 17:13: Bedside Glucose (Misc Panel) 169H 07/27/20 21:14: Bedside Glucose (Misc Panel) 210H 07/28/20 05:37: Immature Granulocyte % (Auto) 0.5, Neutrophils (%) (Auto) 66.7H, Lymphocytes (%) (Auto) 20.3L, Monocytes (%) (Auto) 6.3H, Eosinophils (%) (Auto) 5.6H, Basophils (%) (Auto) 0.6, Neutrophils # (Auto) 5.3, Lymphocytes # (Auto) 1.6, Monocytes # (Auto) 0.5, Eosinophils # (Auto) 0.4, Basophils # (Auto) 0.1, Nucleated Red Blood Cells % (auto) 0.0, Anion Gap 6L, Glomerular Filtration Rate > 60.0, Calcium Level 8.5L 07/28/20 06:12: Bedside Glucose (Misc Panel) 151H CBC/BMP Laboratory Tests 07/28/20 05:37 FSBS Laboratory Tests Test 07/27/20 17:13 07/27/20 21:14 07/28/20 06:12 Range/Units Bedside Glucose (Misc Panel) 169 210 151 83-110 MG/DL Microbiology Microbiology 07/27/20 Campylobacter (PCR), Received Pending 07/27/20 Clostridium difficile Toxin A&B PCR, Received Pending 07/27/20 Plesiomonas shigelloides (PCR), Received Pending 07/27/20 Salmonella (PCR)(VALDO), Received Pending 07/27/20 Vibrio Species (PCR), Received Pending 07/27/20 Vibrio Cholerae (PCR), Received Pending 07/27/20 Yersinia enterocolitica (PCR), Received Pending 07/27/20 Enteroaggregative E. coli (PCR), Received Pending 07/27/20 Enteropathogenic E. coli (PCR), Received Pending 07/27/20 Enterotoxigenic E. coli (PCR), Received Pending 07/27/20 E. coli Shiga-like Toxin (PCR), Received Pending 07/27/20 Escherichia coli 0157 (PCR), Received Pending 07/27/20 Enteroinvasive E. coli/Shigella PCR, Received Pending 07/27/20 Cryptosporidium (PCR), Received Pending 07/27/20 Cyclospora cayetanensis (PCR), Received Pending 07/27/20 Entamoeba histolytica (PCR), Received Pending 07/27/20 Giardia lamblia (PCR), Received Pending 07/27/20 Adenovirus Type F 40/41 (PCR), Received Pending 07/27/20 Astrovirus (PCR), Received Pending 07/27/20 Norovirus GI/GII (PCR), Received Pending 07/27/20 Rotavirus A (PCR), Received Pending 07/27/20 Sapovirus I/II/IV/V (PCR), Received Pending 07/26/20 Urine Culture - Final, Complete Klebsiella Pneumoniae Esbl Discharge Medications Scheduled Aspirin (Aspirin EC) 81 Mg Tablet.dr, 81 MG PO QPM, (Reported) 1800 Calcium Carbonate/Vitamin D3 (Calcium 600-Vit D3 400 Tablet) 1 Each Tablet, 1 TAB PO BID, (Reported) 0800/1800 Carbidopa/Levodopa (Carbidopa-Levodopa 25-100 Tab) 1 Each Tablet, 2.5 TAB PO TID, (Reported) 0800/1200/1800 Carbidopa/Levodopa (Carbidopa-Levo ER 25-100 Tab) 1 Each Tablet.er, 1 TAB PO QHS, (Reported) Cyanocobalamin (Vitamin B-12) (Vitamin B12) 2,500 Mcg Tablet, 5,000 MCG PO DAILY, (Reported) 1200 Donepezil HCl (Donepezil HCl) 10 Mg Tablet, 10 MG PO QHS, (Reported) Levofloxacin (Levofloxacin) 500 Mg Tablet, 1 TAB PO DAILY Levothyroxine Sodium (Levothyroxine Sodium) 125 Mcg Tablet, 125 MCG PO QAM, (Reported) Lutein (Lutein) 40 Mg Capsule, 40 MG PO DAILY, (Reported) 1200 Magnesium Oxide (Magnesium Oxide) 400 Mg Tablet, 400 MG PO BID, (Reported) 1200/2000 Memantine HCl (Memantine HCl) 10 Mg Tablet, 10 MG PO BID, (Reported) 1200/2000 Metformin HCl (Metformin HCl) 500 Mg Tablet, 500 MG PO BID, (Reported) 1200/2000 Omeprazole (Omeprazole) 20 Mg Capsule.dr, 20 MG PO BID, (Reported) Spironolactone (Spironolactone) 25 Mg Tablet, 12.5 MG PO DAILY, (Reported) 1200 Ubidecarenone (Co Q-10) 200 Mg Capsule, 200 MG PO QPM, (Reported) 1800 Allergies Coded Allergies: No Known Allergies (Unverified , 11/25/19) THIEN BUCK MD Jul 28, 2020 14:38
== END 2020-07-28 12:34 | disposition home health service (06) | DRG 391 ==
LOC: M ED 13:14 → EDBD 13:14 → M ED INP 15:22 → ENRESERV 16:13 → M MSPAV 17:25
PROVIDERS: ADMIT Internal Medicine Nephrology; ATTEND Internal Medicine Nephrology
DX: R19.7 Diarrhea, unspecified (principal); G93.41 Metabolic encephalopathy; N39.0 Urinary tract infection, site not specified; E86.0 Dehydration; R53.81 Other malaise; Z22.8 Carrier of other infectious diseases; K21.9 Gastro-esophageal reflux disease without esophagitis; F02.80 Dementia in other diseases classified elsewhere, unspecified severity, without behavioral disturbance, psychotic disturbance, mood disturbance, and anxiety; G20 Parkinson's disease; E03.9 Hypothyroidism, unspecified; I25.10 Atherosclerotic heart disease of native coronary artery without angina pectoris; Z95.2 Presence of prosthetic heart valve; Z79.899 Other long term (current) drug therapy; Z79.82 Long term (current) use of aspirin